=== PATIENT | female | born 1935 | race Caucasian/White ===

== ENCOUNTER 2018-01-10 00:56 | Inpatient (IN) | payer MEDICARE ==
[~2018-01-10] VITALS: Ht 167.6 cm; Wt 73.6 kg
[2018-01-10] VITALS (9 sets, daily range): BP systolic 115–170; BP diastolic 50–73
[2018-01-10] MEDS ORDERED: ACTOS15 MG PO (01:06)
[2018-01-10] MEDS ORDERED: MUCINEX PO (01:06)
[2018-01-10] MEDS ORDERED: SYNTHROID125 MCG PO (01:06)
[2018-01-10] MEDS ORDERED: PROAIR HFA INH8.5 GM INH (01:06)
[2018-01-10] MEDS ORDERED: FENOFIBRATE160 MG PO (01:06)
[2018-01-10] MEDS ORDERED: AMLODIPINE BESY10 MG PO (01:06)
[2018-01-10] MEDS ORDERED: METOPROLOL TART50 MG PO (01:06)
[2018-01-10] MEDS ORDERED: ULORIC80 MG PO (01:06)
[2018-01-10 01:24] LABS: BASOPHILS # (AUTO) 0.1 (0.0-0.1); BASOPHILS % 0.8 % (0.0-1.0); EOSINOPHILS # (AUTO) 0.7 (0.0-0.4); EOSINOPHILS % 11.4 % (0.0-6.0); HEMATOCRIT 31.1 % (34.2-44.1); HEMOGLOBIN 10.4 g/dL (12.0-16.0); INR 1.32; LYMPHOCYTES # (AUTO) 1.1 (1.0-3.2); LYMPHOCYTES % 17.7 % (18.0-39.1); MEAN CORPUSCULAR HEMOGLOBIN 30.2 pg (28-32); MEAN CORPUSCULAR HGB CONC 33.4 g/dL (31-35); MEAN CORPUSCULAR VOLUME 90.4 fL (81-99); MONOCYTES # (AUTO) 0.5 (0.2-0.8); MONOCYTES % 8.8 % (4.4-11.3); NEUTROPHILS # (AUTO) 3.7 (2.1-6.9); NEUTROPHILS % 60.7 % (38.7-80.0); PLATELET COUNT 179 x10e3/uL (140-360); PROTHROMBIN TIME 15.4 seconds (11.9-14.5); RED BLOOD COUNT 3.44 x10e6/uL (3.6-5.1); RED CELL DISTRIBUTION WIDTH 14.4 % (11.7-14.4)
[2018-01-10 01:25] LABS: PARTIAL THROMBOPLASTIN TIME 40.9 seconds (23.8-35.5)
[2018-01-10 01:34] LABS: ALBUMIN 2.9 g/dL (3.5-5.0); ALBUMIN/GLOBULIN RATIO 0.7 (0.8-2.0); ANION GAP 14.7 mmol/L (8-16); CALCIUM 9.1 mg/dL (8.4-10.2); CREATININE, SERUM 3.27 mg/dL (0.57-1.11); POTASSIUM 4.7 mmol/L (3.5-5.1)
[2018-01-10 01:54] LABS: CREATINE KINASE MB 0.4 ng/mL (0-5.0)
--- NOTE | 2018-01-10 02:17 | Diagnostic Imaging Report ---
CHEST SINGLE (PORTABLE), 01/10/2018 12:59 AM Technique: CHEST SINGLE (PORTABLE) Comparison: None available. Clinical history: Shortness of breath Findings: See Impression Impression: 1. Moderate left pleural effusion, which may be malignant given right axillary clips. Associated atelectasis or consolidation; underlying mass not excluded. Calcified left upper lobe granuloma. 2. Cardiomediastinal silhouette partially obscured. Signed by: Dr Taylor Noyola MD on 01/10/2018 2:14 AM
[2018-01-10] MEDS ORDERED: DEXTROSE 50% SYRINGE 50 ML IV PRN (02:45)
[2018-01-10] MEDS ORDERED: ALBUTEROL/IPRATROPIUM 3 ML NEB NEB PRN (02:45)
[2018-01-10] MEDS ORDERED: SODIUM CHLORIDE FLUSH 10 ML SYR INJ PRN (02:45)
--- OUTSIDE RECORDS SUMMARY | 2018-01-10 02:48 | XMS REPORT ---
Author Author [facility] Address Unknown Phone Unavailable Care Team Providers Care E Learning Specialist Name Role Phone EDWINA GUPTA Unavailable Unavailable Problems This patient has no known problems. Allergies, Adverse Reactions, Alerts This patient has no known allergies or adverse reactions. Medications This patient has no known medications. Results Test Description Test Time Test Comments Text Results Atomic Results Result Comments CHEST SINGLE (PORTABLE) [place] [address] Patient Name: BLANQUITA BELL MR #: [id number] : 1935 Age/Sex: 82/F Req #: [id number] Adm Physician: Ordered by: EDWINA GUPTA MD Report #: [id number] Location: ER Room/Bed: ___ Procedure: [id number] DX/CHEST SINGLE (PORTABLE) Exam Date: 01/10/18 Exam Time: 0130 REPORT STATUS: Signed CHEST SINGLE (PORTABLE), 01/10/2018 12:59 AM Technique: CHEST SINGLE (PORTABLE) Comparison: None available. Clinical history: Shortness of breath Findings: See Impression Impression: 1. Moderate left pleural effusion , which may be malignant given right axillary clips. Associated atelectasis or consolidation; underlying mass not excluded. Calcified left upper lobe granuloma. 2. Cardiomediastinal silhouette partially obscured. Signed by : Dr Marnie Noyola MD on 01/10/2018 2:14 AM Dictated By: MARNIE NOYOLA MD 3 Transcribed By: CLEMENTE on 01/10/18213 COPY TO: EDWINA GUPTA MD
--- NOTE | 2018-01-10 03:38 | Diagnostic Imaging Report ---
EXAM: CT CHEST WO DATE: 01/10/2018 2:38 AM INDICATION: Evaluate for mass, history of breast cancer. Intermittent shortness of breath. No clinical concern for infection. COMPARISON: None TECHNIQUE: Multidetector CT scanning of the chest was performed. Coronal and sagittal multiplanar reformations were obtained. IV Contrast: 0 ml Isovue 370/300 FINDINGS: LUNGS AND PLEURA: Moderate left pleural effusion with associated atelectasis. Suboptimal assessment for underlying mass given the presence of a moderate effusion, atelectasis and lack of IV contrast. Mild mosaic attenuation which can be seen with small airways disease. Calcified left upper lobe granuloma. Mild nonspecific groundglass in the left upper lobe. HEART, MEDIASTINUM, VESSELS: Mild cardiomegaly with coronary artery and aortic calcifications. No pericardial effusion. There are scattered small mediastinal nodes, largest 9 mm pretracheal node. Right axillary clips. UPPER ABDOMEN: Cholecystectomy. Lobular renal contours with left renal cyst (suboptimal assessment for lesions without IV contrast). MUSCULOSKELETAL: Multilevel degenerative changes resulting in canal stenosis at the upper lumbar spine. IMPRESSION: Moderate left pleural effusion, which could be malignant given history of breast cancer. Difficult to evaluate for underlying mass given the moderate effusion, associated atelectasis and lack of IV contrast. Signed by: Dr Taylor Noyola MD on 01/10/2018 3:35 AM
[2018-01-10] MEDS: LEVOTHYROXINE SODIUM 125 MCG TAB PO SCH (06:16)
[2018-01-10] MEDS ORDERED: ASPIRIN 81 MG CHEW TAB PO ONE (07:00)
[2018-01-10] MEDS: MORPHINE SULFATE 2 MG/ML SYR IV PRN ×2 (07:15→23:02)
[2018-01-10] MEDS: INSULIN REGULAR, HUMAN 100 UNIT/1 ML 3ML VIAL SQ SCH ×4 (07:30→19:34)
[2018-01-10 08:05] LABS: CREATINE KINASE MB 0.6 ng/mL (0-5.0)
[2018-01-10] MEDS: METOPROLOL TARTRATE 50 MG TAB PO SCH ×2 (08:59→17:34)
[2018-01-10] MEDS: AMLODIPINE BESYLATE 10 MG TAB PO SCH (09:00)
[2018-01-10] MEDS: FENOFIBRATE 145 MG TAB PO SCH (09:00)
[2018-01-10] MEDS: GUAIFENESIN 600 MG TAB PO SCH ×2 (09:00→17:34)
[2018-01-10] MEDS: FEBUXOSTAT 80 MG TAB PO SCH (09:00)
[2018-01-10] MEDS: FUROSEMIDE INJ 10 MG/ML 4 ML VIAL IV SCH (10:17)
[2018-01-10 10:26] LABS: BILIRUBIN,URINE NEGATIVE (NEGATIVE); CLARITY,URINE CLEAR (CLEAR); COLOR,URINE YELLOW (YELLOW); KETONES,URINE NEGATIVE (NEGATIVE); LEUKOCYTE ESTERASE ,URINE NEGATIVE (NEGATIVE); NITRITE,URINE NEGATIVE (NEGATIVE); PROTEIN,URINE DIPSTICK 1+ (NEGATIVE); URINE UROBILINOGEN 0.2 mg/dL (0.2 - 1)
[2018-01-10 10:35] LABS: SODIUM,URINE 59 mmol/L
[2018-01-10 10:38] LABS: EPITHELIAL CELLS,URINE RARE /LPF; WBC,URINE (MAN) 0-5 /HPF (0-5)
[2018-01-10 10:39] LABS: RENAL EPITHELIAL CELLS,URINE RARE
--- NOTE | 2018-01-10 10:57 | Consultation ---
DATE OF CONSULTATION: January 10, 2018 RENAL CONSULTATION Thank you for this consultation. Ms. Cohen is a pleasant 82-year-old female with a past medical history significant for history of diabetes mellitus, type 2, history of hypertension, history of congestive heart failure, history of chronic kidney disease with previous creatinine apparently consistent with an estimated GFR around 30 mL per minute. Also, has a prior history of breast cancer, bilateral hip surgery, who is a resident of [place] and was visiting her daughter, and apparently is going to be here on a long-term basis. The patient apparently was in [place] about a week or so ago, and had a left-sided pleural effusion drained, and started to have recurrence of shortness of breath, increased lower extremity edema. The daughter brought her over to the emergency room at [facility]. The patient was readmitted to the hospital there with what appears to be congestive heart failure exacerbation, and also jpzwt-yz-qzkttwa kidney disease. The patient's creatinine on presentation was found to be 3.3. Apparently, the baseline that she has is lower than that. The patient also was found to have evidence of moderate sided left pleural effusion, possibly malignant given right axillary clips. There is also left-sided upper lobe granuloma. The patient also had a CT of the chest done without contrast that showed moderate left pleural effusion, possibly malignant given history of breast cancer. Renal consultation has been asked in the management of her yijxw-xx-xofciuu kidney disease. The patient is currently seen in her room. She does not have overt respiratory distress. Is on home oxygen about 2 L nasal cannula. She is on about the same at this time. No fever. No chills. No nausea. No vomiting. No diarrhea. Does have some shortness of breath. Does have some pain when she takes a breath in particular on the left side. PAST MEDICAL HISTORY: As outlined above. ALLERGIES: IODINE. SOCIAL HISTORY: No tobacco. No alcohol use. FAMILY HISTORY: Noncontributory. REVIEW OF SYSTEMS: See HPI. Otherwise, all systems negative. MEDICATIONS: Have been reviewed per chart. The patient currently is on fenofibrate, amlodipine, metoprolol, insulin, Uloric, TriCor. PHYSICAL EXAMINATION VITAL SIGNS: As follows: Blood pressure is 170/70, pulse ox 94 on 2 L nasal cannula, pulse 73, respirations 19, and afebrile. HEENT: No cervical lymphadenopathy. NECK: Supple without masses. No elevated JVD. Oral mucosa appears to be moist with good turgor. CHEST: Good expansion. No chest wall tenderness. Lungs with rales at bases, right lung field. Left lung field with diminished breath sounds. CARDIOVASCULAR: S1 and S2. No obvious gallop, rub or murmur. ABDOMEN: Soft. Positive bowel sounds. Nontender. No organomegaly. EXTREMITIES: Evidence of 1+ edema of the lower extremities. No clubbing. No cyanosis. NEUROLOGIC: Awake, alert and oriented times 3. Grossly otherwise nonfocal exam. LABS: As follows: Sodium 138, potassium 4.7, chloride 103, carb 25, BUN 71, creatinine 3.3, glucose 108. Calcium 9.1, albumin 2.9. BNP was 460. CT of chest and chest x-ray both confirmed moderate left pleural effusion. Possibility of malignancy related given the history of breast cancer. IMPRESSION AND PLAN 1. Acute kidney injury on chronic kidney disease, stage 4: The patient certainly has chronic kidney disease from history of diabetes mellitus and hypertension. Acute kidney injury could certainly be secondary to acute onset of congestive heart failure exacerbation leading to decreased renal perfusion. For now, I would put the patient on gentle intravenous diuresis with Lasix 40 mg intravenously daily to see whether or not there is improvement in the pleural effusion. Will also check labs in the morning, including basic metabolic panel, mag, phos, and CBC. Will get urine electrolytes, urine protein to creatinine ratio to evaluate as part of workup for chronic kidney disease. Will also get a renal ultrasound and evaluate for chronicity and an intact PTH level as well. For now, no acute indication for dialysis. Will continue to monitor closely and make further recommendations. Avoid potential nephrotoxic agents. Avoid LUIS ENRIQUE inhibitors, ARBs, nonsteroidal anti-inflammatory drugs, and intravenous dye at this time. 2. Hypertension: Continue current medications. If the blood pressure continues to be elevated, will adjust medications and add additional medications as needed. 3. Edema/possible congestive heart failure exacerbation: Will place on Lasix 40 mg intravenously daily and make further recommendations. 4. Proteinuria: Will get a urine protein to creatinine ratio. If it is elevated, will consider doing a 24-hour urine for protein to see whether or not the patient has nephrotic range proteinuria. Thank you once again for the consultation, Dr. Hughes. Will follow the patient closely along with you and make further recommendations. Will also have her see us in our office when she is discharged from here. Thank you once again for the consultation. Job#: [id number] RI cc:COURTNEY HUGHES M.D.
--- NOTE | 2018-01-10 11:21 | Diagnostic Imaging Report ---
PROCEDURE:US RETROPERITONEAL ( KIDNEY ). COMPARISON:None. INDICATIONS:EVALUATE SIZE, HYDRONEPHROSIS TECHNIQUE: [place]-scale and color sonographic images of the bilateral kidneys and bladder where obtained in transverse and longitudinal planes. FINDINGS: RIGHT KIDNEY: 9.5 x 3.8 x 4.1 cm, cortex 0.9 cm Cysts: None Solid masses: None Stones: None Hydronephrosis: Right extrarenal pelvis is unchanged. Echogenicity: Normal LEFT KIDNEY: 9.2 x 4.6 x 4.7 cm, cortex 1.0 cm Cysts: 1.9 x 1.5 x 1.6 cm cyst in the inferior pole. Solid masses: None Stones: None Hydronephrosis: None Echogenicity: Normal Bladder: Normal. Incidental finding of left pleural effusion and mild splenomegaly. CONCLUSION: Mildly thinned renal cortex, which is within normal limits for age. 1.9 cm simple left renal cyst. Otherwise normal kidneys. Dictated by: Hector Sanchez M.D. on 01/10/2018 at 11:22 Electronically approved by: Hector Sanchez M.D. on 01/10/2018 at 11:22
--- NOTE | 2018-01-10 12:11 | History and Physical ---
Ms. Cohen is an 82-year-old lady with a past medical history of diabetes type 2, hypertension, congestive heart failure, chronic kidney disease, breast cancer history treated in 2005, and bilateral hip surgery. She presented with dyspnea and left-sided pleural effusion. The patient lives in [place] where her daughter says a week ago she was admitted for dyspnea and left-sided pleural effusion and lower extremity edema. She had drainage of pleural fluid there. She was recovering when she again developed dyspnea and lower extremity edema and was brought to the emergency room here at [facility] [place] yesterday. On admission, her creatinine was elevated, and her chest x-ray and CT chest showed left-sided pleural effusion. Therefore, she was admitted with renal insufficiency, dyspnea and pleural effusion. PAST MEDICAL HISTORY: Positive for diabetes, hypertension, congestive heart failure, chronic kidney disease, hypothyroidism, hyperlipidemia. PAST SURGICAL HISTORY: Positive for bilateral hip surgeries and replacement, history of breast cancer treated in 2005, and history of skin cancer treated 2 years ago. ALLERGIES: SHE HAS NO MEDICATION ALLERGY, BUT SHE DOES HAVE ALLERGY TO IODINE. FAMILY HISTORY: Positive for diabetes and hypertension. Her mother had cervical cancer. SOCIAL HISTORY: She lives alone. She is independent with all her ADLs and also drives. She lives in [place] but has recently moved here with her daughter due to her illness. She denied any history of smoking or alcohol use. PHYSICAL EXAMINATION VITALS: Temperature was 96, pulse 73, respiratory rate 19, blood pressure 170/73. She was saturating 94% with nasal cannula. HEENT: Oral mucosa was moist. NECK: Supple. CHEST: Decreased air entry on the bases. No wheezing or rhonchi. She had regular heart sounds with no murmurs. ABDOMEN: Soft and nontender. EXTREMITIES: She has +1 edema of bilateral lower extremities. NEUROLOGIC: She has no weakness, and she was moving all of her extremities. SKIN: No changes in her skin. REVIEW OF SYSTEMS: She said that she does have a history of off and on cough for which she uses nebulizers and inhalers as needed. She does have a history of chronic headaches, which she says she mostly wakes up with a headache, and they go away after taking Tylenol. She also says she does have recurrent pain in her joints for which she is treated for gout. LABS: Anemia--hypochromic, microcytic anemia. PT and INR were normal. Her renal function revealed elevated creatinine, low GFR and elevated BUN. Cardiac enzymes were done as she presented early today with chest pain. Her cardiac enzymes were done, and they were not elevated. Her BNP is elevated at 460.4. She has low albumin and high globulin. ASSESSMENT AND PLAN 1. Dyspnea for which she is receiving DuoNeb. Pulmonary is on consult for her pleural effusion and dyspnea. 2. Renal insufficiency. She is being seen by nephrology, and she is on IV fluids. 3. Congestive heart failure. She is receiving Lasix and metoprolol 4. Hypertension for which she is on Norvasc. 5. Gout for which she is on Uloric. 6. Hypothyroidism for which she is on levothyroxine. 7. Chest pain and heart failure for which she is going to be seen by cardiology. The plan is to follow cholesterol and A1c. Start DVT prophylaxis and follow and continue the above management. Job#: [id number]
[2018-01-10] MEDS: ONDANSETRON HCL 4 MG ORAL DISINTEGRATING TAB PO PRN ×3 (12:39→23:02)
[2018-01-10] MEDS: PANTOPRAZOLE 40 MG 10ML VIAL IV SCH (13:12)
--- NOTE | 2018-01-10 14:40 | Diagnostic Imaging Report ---
PROCEDURE: A single AP view of the chest. COMPARISON: Chest x-ray 01/10/2018 at 1:36 AM. INDICATIONS: POST THORACENTESIS. SHORTNESS OF BREATH. COUGH FINDINGS: Lines/tubes: None. Lungs: Improvement in right basilar atelectasis/aspiration. Improvement in left basilar atelectasis. Bilateral lower lobe bronchiectasis is unchanged. Pleura: No pneumothorax. Significant improvement in left pleural effusion, now tiny. Heart and mediastinum: The heart and the mediastinum are unremarkable. Atherosclerotic calcifications in the aorta. Bones: No acute bony abnormality. Rectal quadrant cholecystectomy clips. IMPRESSION: 1. Near resolution of left pleural effusion. No pneumothorax. 2. Nearly resolved left lower lobe atelectasis. Dictated by: Hector Sanchez M.D. on 01/10/2018 at 14:42 Electronically approved by: Hector Sanchez M.D. on 01/10/2018 at 14:42
--- NOTE | 2018-01-10 14:45 | Diagnostic Imaging Report ---
PROCEDURE: ULTRASOUND GUIDED THORACENTESIS COMPARISON: [facility], CT, CT CHEST WO, 01/10/2018, 2:55. INDICATIONS:LT THORACENTESIS FINDINGS: After informed consent was obtained, the patient was placed in the sitting position and preliminary ultrasound of the posterior chest identified a safe route into the left pleural effusion. The overlying skin was prepped and draped in usual sterile fashion. Lidocaine 1% was used for local anesthesia. Under ultrasound guidance, 5 [place] [address] Trolley centesis needle was advanced into the pleural fluid and 1100 cc were aspirated. The patient tolerated the procedure well and there were no immediate post-procedural complications. A post-thoracentesis chest radiograph will be obtained. CONCLUSION: Uncomplicated ultrasound-guided left thoracentesis with removal of left 1100 cc and sent to the lab for analysis. Pedro Alcantara D.O. Dictated by: Pedro Alcantara D.O. on 01/10/2018 at 14:46 Electronically approved by: Pedro Alcantara D.O. on 01/10/2018 at 14:46
[2018-01-10 15:30] LABS: BODY FLUID APPEARANCE SL.CLOUDY; BODY FLUID COLOR YELLOW; BODY FLUID TYPE PLEURAL
[2018-01-10 15:31] LABS: RBC,BODY FLUID 713 cells/uL; WBC,BODY FLUID 184 cells/uL
[2018-01-10 15:49] LABS: CREATINE KINASE MB 0.7 ng/mL (0-5.0)
[2018-01-10 16:05] LABS: EOSINOPHILS,BODY FLUID 10 %; LYMPHOCYTES,BODY FLUID 68 %; MONO/MACROPHG,BODY FLUID 11 %; NEUTROPHILS,BODY FLUID 11 %
--- NOTE | 2018-01-10 16:45 | Consultation ---
DATE OF CONSULTATION: January 10, 2018 This is a patient of Dr. James. This is a charming, but unfortunate, 82-year-old woman with a history of recent thoracentesis in [place]. One liter was drained from the left chest. According to the family, no studies were requested. The patient has a history of remote stage 0 breast cancer treated with lumpectomy and radiation in 2005 and lymph node biopsy. Skin cancer in 2016 on the ear. They were told it was all removed. She has a history of diabetes. HISTORY OF IODINE ALLERGY. Her medications have included albuterol, Actos, amlodipine, Uloric, fenofibrate, Levoxyl, metoprolol and Mucinex. Family history is positive for cancer of the uterus, breast and throat. She has had 3 hip replacement surgeries, 2 on the right, as well as her lumpectomy. 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 PHYSICAL EXAMINATION VITALS: Temperature 97.3, pulse 64, respirations 18, blood pressure 165/75. HEAD: Normocephalic and atraumatic. EYES: The extraocular movements are intact. LUNGS: Rub at left base. Status post thoracentesis. HEART: Regular rhythm. ABDOMEN: Nontender. EXTREMITIES: Not edematous. IMPRESSION: Congestive heart failure and renal failure. Pleural fluid preliminary results are suggestive of a pseudoexudate. LDH 103 and protein 3.5. This is a borderline study. Will request additional tests. Echocardiogram was also performed, and results are pending at this time. Chest x-ray appears to have re-expanded after the procedure. No obvious mass. Thank you for this kind referral. Job#: [id number]
--- NOTE | 2018-01-10 17:30 | Consultation ---
DATE OF CONSULTATION: January 10, 2018 CARDIOLOGY CONSULTATION ATTENDING PHYSICIAN: Dr. Hughes. Thank you so much for asking me to see this nice lady in consultation. Ms. Cohen is a pleasant 82-year-old woman who has been living alone in [place], [place], who was brought by her family to the emergency room with a complaint of chest discomfort and shortness of breath. HISTORY OF PRESENT ILLNESS: The patient and her daughter tell me that she had a thoracentesis in [place], [place], on January 01 where they believe that they removed about a liter of fluid and perhaps was not sent for studies. She has been having considerable ankle swelling but of undetermined etiology. PAST MEDICAL HISTORY: Significant for a right-sided breast surgery for cancer followed by radiation treatments in 2005. She did not have any chemotherapy. She has had remote cholecystectomy. She has had longstanding severe hypertension. She had bilateral hip replacements. Her home medications have included metoprolol, amlodipine, furosemide. She reports that she was told to stop using metformin recently and has used a different diabetes pill, which she cannot name. She has levothyroxine for hypothyroidism. She has been seeing a kidney doctor for renal insufficiency and tells me that, "Most kidneys are about 60. They say mine is about 30." PERSONAL AND SOCIAL HISTORY: She does not smoke nor drink and has been living alone. REVIEW OF SYSTEMS: IN GENERAL: The patient is very proud that she has lost 50 pounds over the past year and insists that it was intentional. CARDIAC: She reports that her ankles have been swelling on a daily basis. Denies any chest pain. She denies any knowledge of any cardiac problem to me. PHYSICAL EXAMINATION: GENERAL: At this time shows a pleasant, obese white woman who is alert and responsive. VITAL SIGNS: Blood pressure 170/70. HEENT: Unremarkable. NECK: There is no jugular venous distention visible, but there are either carotid bruits or radiated murmur. THORAX: Heart sounds S1 and S2 are reduced. There is a 1/6 systolic murmur. Lungs are relatively clear now after a thoracentesis today. ABDOMEN: Protuberant. Normal bowel sounds. EXTREMITIES: Have trace pretibial edema. EKG shows sinus rhythm with 1st degree AV block and suggests anterior scar. Chest x-ray and CT of the chest showed pleural effusion and right mastectomy. LABORATORY DATA: Pertinent laboratory studies on the chart show a BUN 71 and creatinine 3.27. Hemoglobin 10.4, white count 6.1. ASSESSMENT: 1. Pleural effusion. Etiology not clear but recurrent by history. 2. Peripheral edema. May be related to congestive heart failure or renal insufficiency or both. 3. Renal insufficiency. 4. Echocardiogram suggests mild aortic stenosis and ejection fraction of 50% to 55%, but full study is not yet available for me to review. PLAN: Will check echocardiogram and follow volume status and wait for results of the thoracentesis fluid. Thank you for asking me to see her consultation. Job#: [id number] EV cc:Mandy GARZA MD
[2018-01-11 04:27] VITALS: BP 133/62
[2018-01-11 06:13] LABS: BASOPHILS # (AUTO) 0.1 (0.0-0.1); BASOPHILS % 0.7 % (0.0-1.0); EOSINOPHILS # (AUTO) 0.8 (0.0-0.4); EOSINOPHILS % 10.8 % (0.0-6.0); HEMATOCRIT 29.7 % (34.2-44.1); HEMOGLOBIN 9.6 g/dL (12.0-16.0); LYMPHOCYTES # (AUTO) 0.8 (1.0-3.2); LYMPHOCYTES % 10.8 % (18.0-39.1); MEAN CORPUSCULAR HEMOGLOBIN 30.2 pg (28-32); MEAN CORPUSCULAR HGB CONC 32.3 g/dL (31-35); MEAN CORPUSCULAR VOLUME 93.4 fL (81-99); MONOCYTES # (AUTO) 0.6 (0.2-0.8); MONOCYTES % 7.7 % (4.4-11.3); NEUTROPHILS # (AUTO) 5.4 (2.1-6.9); NEUTROPHILS % 69.5 % (38.7-80.0); PLATELET COUNT 158 x10e3/uL (140-360); RED BLOOD COUNT 3.18 x10e6/uL (3.6-5.1); RED CELL DISTRIBUTION WIDTH 14.5 % (11.7-14.4)
[2018-01-11 06:36] LABS: CHOL/HDL RATIO 6.4 (3.0-3.6)
[2018-01-11 06:49] LABS: ALBUMIN 2.3 g/dL (3.5-5.0); ALBUMIN/GLOBULIN RATIO 0.7 (0.8-2.0); ANION GAP 11.5 mmol/L (8-16); CALCIUM 8.7 mg/dL (8.4-10.2); CREATININE, SERUM 2.7 mg/dL (0.57-1.11); POTASSIUM 4.5 mmol/L (3.5-5.1)
[2018-01-11 06:51] LABS: CREATINE KINASE MB 0.4 ng/mL (0-5.0)
[2018-01-11] MEDS: LEVOTHYROXINE SODIUM 125 MCG TAB PO SCH (07:17)
[2018-01-11] MEDS: INSULIN REGULAR, HUMAN 100 UNIT/1 ML 3ML VIAL SQ SCH ×4 (07:30→21:00)
[2018-01-11] MEDS: ONDANSETRON HCL 4 MG ORAL DISINTEGRATING TAB PO PRN (07:35)
[2018-01-11 08:00] VITALS: BP_SYST 126; BP_SYST 133; BP_DIAS 59; BP_DIAS 60
[2018-01-11 08:13] LABS: MAGNESIUM 1.7 MG/DL (1.3-2.1); PHOSPHORUS 4.2 MG/DL (2.3-4.7)
[2018-01-11] MEDS: MORPHINE SULFATE 2 MG/ML SYR IV PRN ×2 (08:20→21:52)
[2018-01-11] MEDS: FUROSEMIDE INJ 10 MG/ML 4 ML VIAL IV SCH (09:09)
[2018-01-11] MEDS: PANTOPRAZOLE 40 MG 10ML VIAL IV SCH (09:09)
[2018-01-11] MEDS: FEBUXOSTAT 80 MG TAB PO SCH (09:10)
[2018-01-11] MEDS: METOPROLOL TARTRATE 50 MG TAB PO SCH ×2 (09:10→16:22)
[2018-01-11] MEDS: GUAIFENESIN 600 MG TAB PO SCH ×2 (09:10→16:22)
[2018-01-11] MEDS: FENOFIBRATE 145 MG TAB PO SCH (09:10)
[2018-01-11] MEDS: AMLODIPINE BESYLATE 10 MG TAB PO SCH (09:10)
--- NOTE | 2018-01-11 09:38 | Progress Note ---
DATE: January 11, 2018 RENAL PROGRESS NOTE SUBJECTIVE: Followed for acute kidney injury on chronic kidney disease, stage 4. Kidney function is better today. Creatinine is down to 2.7. The patient did diurese well with Lasix 40 mg once a day. She is breathing better. Her lower extremity swelling is improved also. No nausea. No vomiting. No shortness of breath at this time. Breathing has improved. OBJECTIVE VITAL SIGNS: Have been noted. Blood pressure is 133/62, respirations 19, and afebrile. LUNGS: Mostly clear to auscultation bilaterally. CARDIOVASCULAR: S1 and S2. No rub. ABDOMEN: Soft and nontender. EXTREMITIES: No edema. LABS: Sodium 140, potassium 4.5, BUN 70, creatinine 2.7, glucose 111. IMPRESSION AND PLAN 1. Acute kidney injury on chronic kidney disease, stage 4: Kidney function continues to improve with improved diuresis and improved congestive heart failure exacerbation leading to improved circulating volume. Therefore, better renal perfusion. Will change Lasix to oral since the patient's lower extremity has improved significantly. Overall, the patient does appear now to be on the euvolemic side. 2. Hypertension: Blood pressure stable. Continue to monitor. 3. Edema/congestive heart failure exacerbation: Appears to have improved. Will discontinue intravenous Lasix after today and then start oral Lasix tomorrow 40 mg daily. Job#: [id number] KORI
[2018-01-11 16:00] VITALS: BP 131/58
[2018-01-11 20:00] VITALS: BP 137/64
[2018-01-12 00:03] VITALS: BP 126/58
[2018-01-12 04:00] VITALS: BP 146/65
[2018-01-12 05:44] LABS: BASOPHILS # (AUTO) 0.1 (0.0-0.1); BASOPHILS % 0.7 % (0.0-1.0); EOSINOPHILS # (AUTO) 0.9 (0.0-0.4); EOSINOPHILS % 12.4 % (0.0-6.0); HEMATOCRIT 31.9 % (34.2-44.1); HEMOGLOBIN 10.3 g/dL (12.0-16.0); LYMPHOCYTES # (AUTO) 1.1 (1.0-3.2); LYMPHOCYTES % 15.2 % (18.0-39.1); MEAN CORPUSCULAR HEMOGLOBIN 29.9 pg (28-32); MEAN CORPUSCULAR HGB CONC 32.3 g/dL (31-35); MEAN CORPUSCULAR VOLUME 92.5 fL (81-99); MONOCYTES # (AUTO) 0.7 (0.2-0.8); MONOCYTES % 9.5 % (4.4-11.3); NEUTROPHILS # (AUTO) 4.5 (2.1-6.9); NEUTROPHILS % 61.9 % (38.7-80.0); PLATELET COUNT 162 x10e3/uL (140-360); RED BLOOD COUNT 3.45 x10e6/uL (3.6-5.1); RED CELL DISTRIBUTION WIDTH 14.5 % (11.7-14.4)
[2018-01-12 06:03] LABS: ANION GAP 12.3 mmol/L (8-16); CALCIUM 8.8 mg/dL (8.4-10.2); CREATININE, SERUM 2.59 mg/dL (0.57-1.11); POTASSIUM 4.3 mmol/L (3.5-5.1)
[2018-01-12] MEDS: LEVOTHYROXINE SODIUM 125 MCG TAB PO SCH (07:09)
[2018-01-12] MEDS: INSULIN REGULAR, HUMAN 100 UNIT/1 ML 3ML VIAL SQ SCH ×4 (07:30→21:00)
[2018-01-12 08:00] VITALS: BP 165/65
[2018-01-12] MEDS: PANTOPRAZOLE SOD 40 MG TABEC PO SCH (08:00)
[2018-01-12] MEDS: METOPROLOL TARTRATE 50 MG TAB PO SCH ×2 (08:36→16:17)
[2018-01-12] MEDS: FUROSEMIDE 40 MG TAB PO SCH (08:36)
[2018-01-12] MEDS: GUAIFENESIN 600 MG TAB PO SCH ×2 (08:36→16:17)
[2018-01-12] MEDS: FENOFIBRATE 145 MG TAB PO SCH (08:36)
[2018-01-12] MEDS: AMLODIPINE BESYLATE 10 MG TAB PO SCH (08:36)
[2018-01-12] MEDS: FEBUXOSTAT 80 MG TAB PO SCH (08:37)
[2018-01-12 12:00] VITALS: BP 134/59
--- NOTE | 2018-01-12 13:58 | Progress Note ---
DATE: January 12, 2018 RENAL PROGRESS NOTE SUBJECTIVE: Followed for acute kidney injury on chronic kidney disease, stage 4. The patient's kidney function has stabilized around a creatinine of 2.6. The patient has diuresed well. Pleural effusion has improved after thoracentesis and with IV diuresis. No nausea. No vomiting. Breathing is improved also. OBJECTIVE VITAL SIGNS: Have been noted. Blood pressure is 160/60, heart rate 71. LUNGS: Mostly clear to auscultation bilaterally. CARDIOVASCULAR: S1 and S2. No rub. ABDOMEN: Soft and nontender. EXTREMITIES: No edema. LABS: Sodium 137, potassium 4.3, BUN 71, creatinine 2.6. IMPRESSION AND PLAN 1. Acute kidney injury on chronic kidney disease, stage 4: The patient is approaching her baseline creatinine. I have discontinued the intravenous Lasix and changed her to oral Lasix from today. 2. Hypertension: Blood pressure is stable. 3. Anemia: Currently stable. 4. Congestive heart failure exacerbation, resolved: Change Lasix to oral now. Job#: [id number] [place]
[2018-01-12 16:00] VITALS: BP 132/61
[2018-01-12] MEDS: MORPHINE SULFATE 2 MG/ML SYR IV PRN (18:33)
[2018-01-12 20:00] VITALS: BP 129/61
[2018-01-13] VITALS (7 sets, daily range): BP systolic 120–185; BP diastolic 52–72
[2018-01-13] MEDS: LEVOTHYROXINE SODIUM 125 MCG TAB PO SCH (05:38)
[2018-01-13] MEDS: INSULIN REGULAR, HUMAN 100 UNIT/1 ML 3ML VIAL SQ SCH ×4 (07:30→20:57)
--- NOTE | 2018-01-13 07:34 | Diagnostic Imaging Report ---
EXAMINATION: CHEST 2 VIEWS INDICATION: Pleural effusion. COMPARISON: Chest x-ray 01/10/2018. CT chest 01/10/2018. FINDINGS: PA and lateral views TUBES and LINES: None. LUNGS: Right lung is well inflated. Increase in left basilar atelectasis. Slight increase in right basilar atelectasis. Minimal increase in central pulmonary venous congestion. PLEURA: Unchanged small left pleural effusion. HEART AND MEDIASTINUM: The cardiomediastinal silhouette is unremarkable. There are atherosclerotic calcifications within the aorta. BONES AND SOFT TISSUES: No acute osseous lesion. Right axillary surgical clips. UPPER ABDOMEN: No free air under the diaphragm. IMPRESSION: No significant change in small left pleural effusion. However, interval development of moderate atelectasis in the left lung base. Mild right basilar atelectasis. Signed by: Dr. Hector Sanchez M.D. on 01/13/2018 7:31 AM
[2018-01-13] MEDS: PANTOPRAZOLE SOD 40 MG TABEC PO SCH (08:00)
[2018-01-13] MEDS: GUAIFENESIN 600 MG TAB PO SCH ×2 (08:37→17:25)
[2018-01-13] MEDS: FUROSEMIDE 40 MG TAB PO SCH (08:37)
[2018-01-13] MEDS: METOPROLOL TARTRATE 50 MG TAB PO SCH ×2 (08:37→17:25)
[2018-01-13] MEDS: FEBUXOSTAT 80 MG TAB PO SCH (08:38)
[2018-01-13] MEDS: AMLODIPINE BESYLATE 10 MG TAB PO SCH (08:38)
[2018-01-13] MEDS: FENOFIBRATE 145 MG TAB PO SCH (08:38)
[2018-01-14] VITALS (7 sets, daily range): BP systolic 137–160; BP diastolic 63–72
[2018-01-14 06:28] LABS: ANION GAP 10.3 mmol/L (8-16); CALCIUM 8.6 mg/dL (8.4-10.2); CREATININE, SERUM 2.22 mg/dL (0.57-1.11); MAGNESIUM 1.8 MG/DL (1.3-2.1); POTASSIUM 4.3 mmol/L (3.5-5.1)
[2018-01-14] MEDS: LEVOTHYROXINE SODIUM 125 MCG TAB PO SCH (06:40)
[2018-01-14] MEDS: INSULIN REGULAR, HUMAN 100 UNIT/1 ML 3ML VIAL SQ SCH ×4 (07:30→20:03)
[2018-01-14] MEDS: PANTOPRAZOLE SOD 40 MG TABEC PO SCH (07:30)
[2018-01-14] MEDS: AMLODIPINE BESYLATE 10 MG TAB PO SCH (08:49)
[2018-01-14] MEDS: FEBUXOSTAT 80 MG TAB PO SCH (08:49)
[2018-01-14] MEDS: GUAIFENESIN 600 MG TAB PO SCH ×2 (08:49→17:16)
[2018-01-14] MEDS: FUROSEMIDE 40 MG TAB PO SCH (08:49)
[2018-01-14] MEDS: METOPROLOL TARTRATE 50 MG TAB PO SCH (08:49)
[2018-01-14] MEDS: FENOFIBRATE 145 MG TAB PO SCH (08:49)
[2018-01-14] MEDS: ACETAMINOPHEN 325 MG TAB PO PRN (09:00)
[2018-01-14] MEDS ORDERED: FUROSEMIDE 40 MG TAB PO SCH (09:00)
--- NOTE | 2018-01-14 09:31 | Progress Note ---
DATE: January 14, 2018 RENAL PROGRESS NOTE SUBJECTIVE: Followed for acute kidney injury on chronic kidney disease, stage 3 to stage 4. Creatinine continues to improve. It is down to 2.2. BUN has gone up to 83. The patient may be slightly under on the volume depleted side. Chest x-ray shows very small left pleural effusion now, otherwise clear. No nausea. No vomiting. Breathing is improved. OBJECTIVE VITAL SIGNS: Have been noted and are stable. LUNGS: Clear to auscultation bilaterally. CARDIOVASCULAR: S1 and S2. No rub. ABDOMEN: Soft and nontender. EXTREMITIES: No edema. LABS: Sodium 135, potassium 4.2, chloride 99, carb 30, BUN 83, creatinine 2.2, glucose 110. IMPRESSION AND PLAN 1. Acute kidney injury on chronic kidney disease, stage 3 to stage 4: Likely at baseline. Has chronic kidney disease, stage 4, although creatinine continues to improve and may be stabilizing at a stage 3 baseline. There is elevation of her BUN today, which may be azotemia from side volume depletion. Will decrease the Lasix dose to 20 mg daily and make further recommendations. 2. Hypertension, stable: Continue to monitor. 3. History of congestive heart failure: Will continue on low-dose Lasix. Decrease it to 20 mg once a day to avoid volume depletion. Job#: [id number] KORI
--- NOTE | 2018-01-14 11:23 | Diagnostic Imaging Report ---
PROCEDURE:US CHEST (INCL MEDIASTINUM) COMPARISON:Chest radiograph 01/13/2018. INDICATIONS:pleural effusion FINDINGS:See conclusion CONCLUSION: Small left pleural effusion. No right pleural effusion. Dictated by: Alex Arora M.D. on 01/14/2018 at 11:25 Electronically approved by: Alex Arora M.D. on 01/14/2018 at 11:25
[2018-01-14] MEDS: METOPROLOL TARTRATE 25 MG TAB PO SCH (17:00)
[2018-01-14] MEDS ORDERED: METOPROLOL TARTRATE 50 MG TAB PO SCH (17:00)
[2018-01-15] VITALS: BP 166/79
[2018-01-15] MEDS: ACETAMINOPHEN 325 MG TAB PO PRN (02:44)
[2018-01-15 04:00] VITALS: BP 167/73
[2018-01-15] MEDS: LEVOTHYROXINE SODIUM 125 MCG TAB PO SCH (05:25)
[2018-01-15] MEDS: METOPROLOL TARTRATE 25 MG TAB PO SCH (05:25)
[2018-01-15 06:25] LABS: ANION GAP 14.6 mmol/L (8-16); CREATININE, SERUM 2.27 mg/dL (0.57-1.11); POTASSIUM 4.6 mmol/L (3.5-5.1)
[2018-01-15 07:17] VITALS: BP 155/69
[2018-01-15] MEDS: INSULIN REGULAR, HUMAN 100 UNIT/1 ML 3ML VIAL SQ SCH ×2 (07:30→12:20)
[2018-01-15] MEDS: PANTOPRAZOLE SOD 40 MG TABEC PO SCH (08:00)
[2018-01-15] MEDS: FENOFIBRATE 145 MG TAB PO SCH (08:14)
[2018-01-15] MEDS: FEBUXOSTAT 80 MG TAB PO SCH (08:14)
[2018-01-15] MEDS: AMLODIPINE BESYLATE 10 MG TAB PO SCH (08:14)
[2018-01-15] MEDS: GUAIFENESIN 600 MG TAB PO SCH (08:14)
[2018-01-15 08:42] VITALS: BP 155/69
[2018-01-15] MEDS ORDERED: FUROSEMIDE 20 MG TAB PO SCH (09:00)
--- NOTE | 2018-01-15 09:08 | Progress Note ---
DATE: January 15, 2018 RENAL PROGRESS NOTE SUBJECTIVE: Followed for acute kidney injury on chronic kidney disease, stage 4. Stable kidney function. Creatinine stabilized around 2.2 to 2.3. BUN is better today after hydration. I have also decreased the Lasix to 20 mg once a day. No nausea. No vomiting. No shortness of breath. OBJECTIVE VITAL SIGNS: Have been noted. Blood pressure is 155/69, pulse 58, respirations 16. LUNGS: Clear to auscultation bilaterally mostly. CARDIOVASCULAR: S1 and S2. No rub. ABDOMEN: Soft and nontender. EXTREMITIES: No edema. LABS: Potassium 4.6, BUN 85, creatinine 2.3. Calcium 9. IMPRESSION AND PLAN 1. Acute kidney injury on chronic kidney disease, stage 4: Stabilized now at chronic kidney disease, stage 4. I have decreased the Lasix to avoid volume depletion. Will keep it at 20 mg once a day for now. 2. Hypertension: Blood pressure is stable. 3. Anemia of chronic disease, stable. 4. History of congestive heart failure: Continue low-dose furosemide 20 mg once a day. Job#: [id number] KORI
[2018-01-15] MEDS ORDERED: LASIX20 MG PO (12:37)
== END 2018-01-15 15:14 | disposition home or self-care (01) | DRG 187 ==
LOC: ER 00:56 → ERHOLD 02:45 → MED/SURG2 03:08
PROVIDERS: ADMIT Internal Medicine; ATTEND Internal Medicine
PROC: 0W9B3ZX Drainage of Left Pleural Cavity, Percutaneous Approach, Diagnostic (ICD-10-PCS; principal; 2018-01-10)
DX: J90 Pleural effusion, not elsewhere classified (principal); N17.9 Acute kidney failure, unspecified; N18.4 Chronic kidney disease, stage 4 (severe); I13.0 Hypertensive heart and chronic kidney disease with heart failure and stage 1 through stage 4 chronic kidney disease, or unspecified chronic kidney disease; I50.32 Chronic diastolic (congestive) heart failure; R06.02 Shortness of breath; M10.9 Gout, unspecified; I35.0 Nonrheumatic aortic (valve) stenosis; E11.22 Type 2 diabetes mellitus with diabetic chronic kidney disease; E78.5 Hyperlipidemia, unspecified; E03.9 Hypothyroidism, unspecified; Z80.8 Family history of malignant neoplasm of other organs or systems; Z83.3 Family history of diabetes mellitus; Z82.49 Family history of ischemic heart disease and other diseases of the circulatory system; Z85.3 Personal history of malignant neoplasm of breast; R80.9 Proteinuria, unspecified; Z96.643 Presence of artificial hip joint, bilateral; D64.9 Anemia, unspecified
CPT/HCPCS: 32555; 36415; 71045; 71046; 71250; 74470; 76604; 76770; 80048; 80053; 80061; 81001; 82550; 82553; 82570; 82948; 83036; 83540; 83615; 83735; 83880; 84100; 84156; 84157; 84300; 84311; 84466; 84484; 85025; 85610; 85730; 87070; 87071; 87075; 87086; 87102; 87116; 87205; 87206; 88112; 88305; 89051; 93005; 93306; 94640; 99284; J1940; J2270

== ENCOUNTER → 2018-02-08 | Outpatient (CLI) | payer MEDICARE ==
[~2018-02-08] MED LIST: ACTOS15 MG PO; AMLODIPINE BESY10 MG PO; FENOFIBRATE160 MG PO; LASIX20 MG PO; METOPROLOL TART50 MG PO; MUCINEX PO; PROAIR HFA INH8.5 GM INH; SYNTHROID125 MCG PO; ULORIC80 MG PO
--- NOTE | 2018-02-08 10:56 | Diagnostic Imaging Report ---
PROCEDURE: CT CHEST WITHOUT CONTRAST CT scan of the chest WITHOUT intravenous contrast, using standard protocol. TECHNIQUE: The chest was scanned utilizing a multidetector helical scanner from the apex to the level of the adrenal glands. No IV contrast was administered because of <referring physician request. Coronal and sagittal multiplanar reformations were obtained. COMPARISON: 01/10/2018. INDICATIONS: PLEURAL EFFUSION FINDINGS: Lines/tubes: None. Lungs and Airways: Calcified granuloma left upper lobe adjacent to the major fissure. Unchanged groundglass opacities in the left upper lobe, with linear and reticular opacities in the lingula. Passive atelectasis of the left lower lobe. Right lung is hyperinflated. Bronchiectasis and volume loss in the medial segment of the right middle lobe and the medial basal segment of the right lower lobe, unchanged. Pleura: Moderate left pleural effusion without significant interval change relative to 01/10/2018. Heart and mediastinum: The visualized portions of the thyroid gland appear normal. Atherosclerotic calcification of the thoracic aorta and great vessel origins, with large, coarse calcification at the left subclavian artery origin. No ectasia or aneurysmal dilatation. Significant [place] coronary artery calcifications. Pulmonary outflow tract is of normal caliber. No axillary, hilar, or mediastinal lymphadenopathy. Soft tissues: No focal soft tissue abnormalities. Multiple right chest wall surgical clips unchanged. No osseous destructive lesions. Multilevel degenerative disc changes of the thoracic spine. Degenerative joint disease of the glenohumeral joints left greater than right. Abdomen: Visualized portions of the liver, spleen, adrenals, pancreas, and upper poles of the kidneys are unremarkable. Status post cholecystectomy. Bones: As above. IMPRESSION: Stable moderate left pleural effusion relative to CT 01/10/2018. Additional findings as above. Dictated by: Alex Arora M.D. on 02/08/2018 at 11:00 Electronically approved by: Alex Arora M.D. on 02/08/2018 at 11:00
== END ==
LOC: CT 10:03
PROVIDERS: ATTEND Internal Medicine
DX: J90 Pleural effusion, not elsewhere classified (principal)
CPT/HCPCS: 71250

== ENCOUNTER 2018-06-12 11:05 | Inpatient (IN) | payer MEDICARE ==
[~2018-06-12] VITALS: Ht 167.6 cm; Wt 64.9 kg
[2018-06-12] MEDS ORDERED: ASPIRIN 81 MG CHEW TAB PO ONE (12:15)
[2018-06-12 12:48] LABS: BASOPHILS # (AUTO) 0.1 (0.0-0.1); BASOPHILS % 0.5 % (0.0-1.0); EOSINOPHILS # (AUTO) 0.5 (0.0-0.4); EOSINOPHILS % 5.5 % (0.0-6.0); HEMATOCRIT 31.4 % (34.2-44.1); HEMOGLOBIN 10.1 g/dL (12.0-16.0); LYMPHOCYTES # (AUTO) 0.7 (1.0-3.2); LYMPHOCYTES % 6.8 % (18.0-39.1); MEAN CORPUSCULAR HEMOGLOBIN 29.7 pg (28-32); MEAN CORPUSCULAR HGB CONC 32.2 g/dL (31-35); MEAN CORPUSCULAR VOLUME 92.4 fL (81-99); MONOCYTES # (AUTO) 0.5 (0.2-0.8); MONOCYTES % 5.3 % (4.4-11.3); NEUTROPHILS # (AUTO) 7.8 (2.1-6.9); NEUTROPHILS % 81.6 % (38.7-80.0); PLATELET COUNT 282 x10e3/uL (140-360); RED CELL DISTRIBUTION WIDTH 14.7 % (11.7-14.4)
[2018-06-12 13:11] LABS: ALBUMIN/GLOBULIN RATIO 0.6 (0.8-2.0); ANION GAP 14.9 mmol/L (8-16); CALCIUM 9.6 mg/dL (8.4-10.2); CREATININE, SERUM 1.77 mg/dL (0.57-1.11); POTASSIUM 3.9 mmol/L (3.5-5.1)
[2018-06-12 13:18] LABS: CREATINE KINASE MB 0.6 ng/mL (0-5.0)
--- NOTE | 2018-06-12 13:38 | Diagnostic Imaging Report ---
EXAM: US CHEST (INCL MEDIASTINUM) DATE: 06/12/2018 12:00 AM INDICATION: Pleural effusion COMPARISON: 06/12/2018 CT chest, no report available FINDINGS: Limited sonographic evaluation of the chest reveals moderate to large amount of pleural fluid on the left, similar to recent CT. No significant pleural fluid noted on the right. IMPRESSION: Moderate to large left pleural effusion similar to 06/12/2018 CT. Signed by: Dr. Alfonzo Taylor MD on 06/12/2018 1:34 PM
[2018-06-12 14:40] LABS: INR 1.1; PROTHROMBIN TIME 15.2 seconds (11.9-14.5)
[2018-06-12 14:41] LABS: PARTIAL THROMBOPLASTIN TIME 40.4 seconds (23.8-35.5)
[2018-06-12] MEDS ORDERED: FENTANYL CITRATE/PF 100MCG/2 ML INJ ONE (15:47)
[2018-06-12] MEDS ORDERED: FENTANYL CITRATE/PF 100MCG/2 ML INJ IV ONE (16:00)
--- NOTE | 2018-06-12 16:20 | Consultation ---
DATE OF CONSULTATION: June 12, 2018 PULMONARY CONSULTATION REASON FOR CONSULT: Pleural effusion. CHIEF COMPLAINT: Shortness of breath and severe sharp chest pain. HISTORY OF PRESENT ILLNESS: Ms. Cohen is an 82-year-old female. She was scheduled for a CT scan of the chest from my office. She is well known to me. She has left-sided pleural effusion. It has been exudative in the past, and the etiology is not very clear as complete workup has been negative. It is recurrent. She has a remote history of breast cancer 12 years ago, and every year her exam has been normal. She denies any complaints of chest pain, nausea or vomiting. She reports that when she was trying to go home after finishing up the CAT scan, she had sharp left-sided chest pain; so, she decided to come to the emergency room. She denies any nausea, vomiting, diarrhea or focal weakness. REVIEW OF SYSTEMS: GENERAL: Denies any fever or chills. HEAD: Denies any head trauma. ENT: Denies any earache. CVS: Severe chest pain. RESPIRATORY: Shortness of breath. REST OF THE REVIEW OF SYSTEMS: Negative except as in history of present illness. PAST MEDICAL HISTORY: Hypertension, chronic kidney disease, hyperlipidemia. FAMILY HISTORY: Significant for diabetes and hypertension. SOCIAL HISTORY: Currently she is living with her son. She does not have any history of smoking. PAST SURGICAL HISTORY: Three hip replacements, lumpectomy. PHYSICAL EXAMINATION: VITALS: Temperature 98.6, pulse of 61, blood pressure 161/54, respiratory rate of 18. HEENT: Head atraumatic, normocephalic. NECK: Supple. CHEST: With markedly reduced air entry on the left side. No crackles, no wheezing. HEART: S1 and S2 audible. ABDOMEN: Soft, nontender and nondistended. EXTREMITIES: No clubbing, cyanosis. Bilateral pedal edema. NEUROLOGICALLY: She is awake and alert. LABORATORY DATA: White count of 9000, hemoglobin 10.1, platelets 282. Chemistry: Sodium 135, potassium 3.9, chloride 101, BUN 63, creatinine 1.7. CT OF THE CHEST: I have reviewed the images as showing large left pleural effusion and atelectasis. No mediastinal or hilar lymphadenopathy. Films reviewed. ASSESSMENT: Ms. Cohen is an 82-year-old female with large left-sided pleural effusion. This is recurrent. Patient is well known to me from my office visit. She has exudative effusion, and she had recurrent exudative effusion in the past. The etiology is not very clear. Workup has been negative. PLAN: Patient will get IR-guided thoracentesis. Workup has been ordered. I have discussed with Dr. Bansal. We will consult Oncology as patient has remote history of breast cancer. It may be the etiology of the recurrent pleural effusion could be due to breast cancer recurrence. Chronic kidney disease stable. Thank you for this consult. Job#: [id number] EV
--- NOTE | 2018-06-12 16:21 | Diagnostic Imaging Report ---
PROCEDURE: ULTRASOUND GUIDED THORACENTESIS COMPARISON: None. INDICATIONS:pleural effusion FINDINGS: After informed consent was obtained, the patient was placed in the sitting position and preliminary ultrasound of the posterior chest identified a safe route into the left pleural effusion. The overlying skin was prepped and draped in usual sterile fashion. Lidocaine 1% was used for local anesthesia. Under ultrasound guidance, a 5 Icelandic sheathed centesis needle was advanced into the pleural fluid and 1,200 cc were aspirated. The patient tolerated the procedure well and there were no immediate post-procedural complications. A post-thoracentesis chest radiograph will be obtained. Patient did complain of severe pain following procedure. A dose of 25 mcg of Fentanyl was administered IV for pain. CONCLUSION: Uncomplicated ultrasound-guided left-sided thoracentesis with removal of 1,200 cc. Pedro Alcantara D.O. Dictated by: Pedro Alcantara D.O. on 06/12/2018 at 16:29 Electronically approved by: Pedro Alcantara D.O. on 06/12/2018 at 16:29
--- NOTE | 2018-06-12 16:35 | Diagnostic Imaging Report ---
EXAM: XR CHEST 1 VIEW DATE: 06/12/2018 3:44 PM INDICATION: Thoracentesis COMPARISON: None FINDINGS: Lines and Tubes: None Heart and Mediastinum: No acute cardiomediastinal findings. Lungs and Pleura: Moderate pleural parenchymal opacity left mid and lower lung obscures left heart border and left hemidiaphragm. No pneumothorax identified. Bones and Soft Tissues: Surgical clips right axilla. Moderate degenerative changes left glenohumeral joint. IMPRESSION: 1. Moderate left effusion with superimposed atelectasis and/or pneumonia. No distinct pneumothorax. Signed by: Dr. Alfonzo Taylor MD on 06/12/2018 4:32 PM
[2018-06-12 16:55] LABS: BODY FLUID APPEARANCE SL.CLOUDY; BODY FLUID COLOR YELLOW; BODY FLUID TYPE PLEURAL
[2018-06-12 16:59] LABS: RBC,BODY FLUID 605 cells/uL; WBC,BODY FLUID 302 cells/uL
[2018-06-12 18:05] LABS: EOSINOPHILS,BODY FLUID 1 %; LYMPHOCYTES,BODY FLUID 60 %; MONO/MACROPHG,BODY FLUID 36 %; NEUTROPHILS,BODY FLUID 3 %
[2018-06-12] MEDS ORDERED: ETOMIDATE 2 MG/ML 10 ML INJ IV ONE (18:17)
[2018-06-12] MEDS ORDERED: MIDAZOLAM HCL 2 MG/2 ML VIAL ONE (18:17)
[2018-06-12] MEDS ORDERED: SUCCINYLCHOLINE CHLORIDE 20 MG/ML 10ML VIAL ONE (18:17)
[2018-06-12] MEDS ORDERED: HYDRALAZINE HCL 20 MG/ML VIAL IV PRN (19:15)
[2018-06-12] MEDS: MORPHINE SULFATE INJ 4 MG/ML INJ IV PRN (19:30)
[2018-06-12] MEDS: ONDANSETRON HCL INJ 2 MG/ML VIAL IV PRN (19:30)
[2018-06-12 20:52] LABS: CREATINE KINASE MB 0.5 ng/mL (0-5.0)
[2018-06-12 21:30] VITALS: BP 134/46
[2018-06-12 21:47] VITALS: BP 119/78
[2018-06-12 23:52] VITALS: BP 114/47
[2018-06-13] VITALS (166 sets, daily range): BP systolic 65–174; BP diastolic 32–80
[2018-06-13] MEDS: MORPHINE SULFATE INJ 4 MG/ML INJ IV PRN (01:10)
[2018-06-13 03:45] LABS: BASOPHILS % 0.5 % (0.0-1.0); EOSINOPHILS # (AUTO) 0.7 (0.0-0.4); EOSINOPHILS % 9.1 % (0.0-6.0); HEMATOCRIT 30.3 % (34.2-44.1); HEMOGLOBIN 9.5 g/dL (12.0-16.0); LYMPHOCYTES # (AUTO) 0.7 (1.0-3.2); LYMPHOCYTES % 8.6 % (18.0-39.1); MEAN CORPUSCULAR HEMOGLOBIN 29.6 pg (28-32); MEAN CORPUSCULAR HGB CONC 31.4 g/dL (31-35); MEAN CORPUSCULAR VOLUME 94.4 fL (81-99); MONOCYTES # (AUTO) 0.5 (0.2-0.8); MONOCYTES % 6.4 % (4.4-11.3); NEUTROPHILS # (AUTO) 5.9 (2.1-6.9); NEUTROPHILS % 75.1 % (38.7-80.0); PLATELET COUNT 223 x10e3/uL (140-360); RED BLOOD COUNT 3.21 x10e6/uL (3.6-5.1); RED CELL DISTRIBUTION WIDTH 14.6 % (11.7-14.4)
[2018-06-13 03:56] LABS: ALBUMIN 2.6 g/dL (3.5-5.0); ALBUMIN/GLOBULIN RATIO 0.6 (0.8-2.0); ANION GAP 14.9 mmol/L (8-16); CALCIUM 8.8 mg/dL (8.4-10.2); CREATININE, SERUM 1.64 mg/dL (0.57-1.11); POTASSIUM 3.9 mmol/L (3.5-5.1)
[2018-06-13 04:16] LABS: FREE T4 (FREE THYROXINE) 1.19 ng/dL (0.9-1.8); THYROID STIMULATING HORMONE 8.201 uIU/mL (0.350-4.940)
[2018-06-13 04:18] LABS: CREATINE KINASE MB 2.1 ng/mL (0-5.0)
[2018-06-13] MEDS ORDERED: LEVOTHYROXINE SODIUM 125 MCG TAB PO SCH (06:30)
[2018-06-13] MEDS: ONDANSETRON HCL INJ 2 MG/ML VIAL IV PRN (07:06)
[2018-06-13] MEDS ORDERED: VANCOMYCIN 1GM/NS 250 ML 250 ML IV ONE (07:15)
[2018-06-13] MEDS: FAMOTIDINE 20 MG TAB PO SCH ×2 (07:30→16:30)
--- NOTE | 2018-06-13 07:51 | Diagnostic Imaging Report ---
PROCEDURE: A single AP view of the chest. COMPARISON: Chest radiograph 06/12/18. INDICATIONS: SHORTNESS OF BREATH FINDINGS: Lines/tubes: None. Lungs: Low lung volumes. There is new patchy consolidation in the right lower lung. Persistent patchy opacity in the left lower lung. Pleura: Persistent moderate left pleural effusion. Heart and mediastinum: The cardiomediastinal silhouette is unchanged. Bones: Surgical clips in the right axilla. IMPRESSION: New consolidation in the right lower lung suspicious for aspiration or pneumonia. Persistent moderate left pleural effusion with associated atelectasis and/or pneumonia. Dictated by: ARVIND SWIFT M.D. on 06/13/2018 at 7:59 Electronically approved by: ARVIND SWIFT M.D. on 06/13/2018 at 7:59
[2018-06-13] MEDS ORDERED: PROPOFOL IV EMULSION 10MG/ML 100 ML ONE (07:57)
[2018-06-13] MEDS: CEFEPIME HCL 1 GM VIAL IV SCH ×2 (08:05→18:27)
[2018-06-13] MEDS ORDERED: DEXTROSE 50% SYRINGE 50 ML IV PRN (08:45)
[2018-06-13] MEDS ORDERED: AMLODIPINE BESYLATE 10 MG TAB PO SCH (09:00)
[2018-06-13] MEDS ORDERED: FUROSEMIDE 20 MG TAB PO SCH (09:00)
[2018-06-13] MEDS ORDERED: FEBUXOSTAT 80 MG TAB PO SCH (09:00)
[2018-06-13] MEDS: GUAIFENESIN 600 MG TAB PO SCH ×2 (09:00→17:00)
[2018-06-13] MEDS ORDERED: MUCINEX 600 MG PO SCH (09:00)
[2018-06-13] MEDS ORDERED: PIOGLITAZONE HCL 15 MG TAB PO SCH (09:00)
[2018-06-13] MEDS: METOPROLOL TARTRATE 50 MG TAB PO SCH ×2 (09:00→17:00)
[2018-06-13] MEDS ORDERED: NON-FORMULARY MEDICATION (Fenofibrate 160 MG) PO SCH (09:00)
[2018-06-13] MEDS: FENOFIBRATE 145 MG TAB PO SCH (09:00)
--- NOTE | 2018-06-13 09:40 | Diagnostic Imaging Report ---
A single AP view of the chest. COMPARISON: Chest radiograph 06/12/18. INDICATIONS: SHORTNESS OF BREATH FINDINGS: Exam substantially limited by portable technique. Lines/tubes: Interval intubation, the ET tube terminates 5.5 cm above the precious. Right IJ central line terminates at the expected location at the cavoatrial junction. Lungs: Limited evaluation of the right lung given technique. Patchy consolidation in the lower lung zones bilaterally. Pleura: Persistent moderate left pleural effusion. Limited evaluation for pneumothorax given technique, no large pneumothorax is identified. Heart and mediastinum: The cardiomediastinal silhouette is unchanged. Atherosclerotic calcification of the aortic arch. Bones: Surgical clips in the right axilla. IMPRESSION: Interval intubation and central line placement as above. Limited evaluation for pneumothorax given portable technique. No large pneumothorax is evident. Suggest follow-up repeat chest radiograph. Right lower lung consolidation suspicious for aspiration or pneumonia. Persistent moderate left pleural effusion with associated atelectasis and/or pneumonia. Dictated by: ARVIND SWIFT M.D. on 06/13/2018 at 9:47 Electronically approved by: ARVIND SWIFT M.D. on 06/13/2018 at 9:47
[2018-06-13 09:54] LABS: ABG PCO2 37 mmHg (41-51); ABG PH 7.46 (7.31-7.41); ABG PO2 166 mmHg (80-105)
[2018-06-13 09:55] LABS: ABG HCO3 26 mmol/L (23-28)
[2018-06-13] MEDS: INSULIN LISPRO 100 UNIT/1 ML 3ML VIAL SQ SCH ×3 (11:30→21:00)
[2018-06-13] MEDS: PIPER-TAZ 3.375 GM 50 ML IV SCH ×2 (14:00→22:15)
[2018-06-13] MEDS ORDERED: SODIUM CHLORIDE 0.9% 250ML 250 ML ONE (14:55)
--- NOTE | 2018-06-13 16:43 | Diagnostic Imaging Report ---
EXAMINATION: CT scan of the chest without contrast. TECHNIQUE: Spiral CT images of the chest were performed from the lung apices to the level of the adrenal glands without IV contrast material. Coronal and sagittal reformatted images were obtained. Low-dose protocol was utilized. DLP: 561.4 mGy-cm COMPARISON: Chest CT 06/12/18. CLINICAL HISTORY: Shortness of breath DISCUSSION: LINES/TUBES: ET tube terminates in the mid trachea. Right IJ non-tunneled central line terminating in the lower SVC. LUNGS AND AIRWAYS: New ground glass and consolidative opacity in the right lower lobe. There is partial consolidation with associated volume loss in the left lower lobe. Rounded consolidation associated with pleural effusion and volume loss in the left lower lobe on series 3, image 59 likely represents an area of round atelectasis. Right upper lobe calcified granuloma. Mucus plugging in left lower lobe bronchi. There are secretions in the mid trachea adjacent to the ET tube. PLEURA: Interval decrease in size of left sided pleural effusion, now moderate in size. HEART AND MEDIASTINUM: The thyroid gland is not well evaluated. No pericardial effusion. Calcification within the aorta, coronary arteries, aortic valve, mitral valve and great vessels are again noted. LYMPH NODES: There is no mediastinal, hilar or axillary lymphadenopathy. Small mediastinal lymph nodes do not appear pathologic. ABDOMEN: Limited njm-fhtstkwx-azduheea views of the upper abdomen show no abnormality within the visualized liver, spleen, or pancreas. Status post cholecystectomy. The adrenal glands are normal. BONES AND SOFT TISSUES: No acute bony abnormalities. Right axillary clips. IMPRESSION: New consolidative and groundglass opacity in the right lower lobe, consistent with aspiration or pneumonia. Secretions in the mid trachea adjacent to the ET tube. Interval decrease in size of left sided pleural effusion, now moderate in size. Associated consolidation, likely representing atelectasis, although superimposed pneumonia is possible in the appropriate setting. Opacity in the left lower lobe likely reflects round atelectasis. Follow-up imaging is recommended to assess for resolution. Signed by: Dr. Didi Dubose MD on 06/13/2018 4:40 PM
[2018-06-13] MEDS: VANCOMYCIN 1GM/NS 250 ML 250 ML IV SCH (18:59)
[2018-06-13] MEDS ORDERED: DEXTROSE 5%/0.45% SOD CHL 1,000 ML IV SCH (19:45)
[2018-06-14] VITALS (163 sets, daily range): BP systolic 68–179; BP diastolic 29–159
--- NOTE | 2018-06-14 00:42 | Consultation ---
DATE OF CONSULTATION: June 12, 2018 REQUESTING PHYSICIAN: Dr. Cristi Hughes SERVICE: Hematology-oncology. REASON FOR CONSULTATION: Evaluation and management of patient with recurrent pleural effusion. HISTORY OF PRESENTING ILLNESS: Ms. Cohen is a very pleasant 82-year-old female with known history of hypertension, chronic kidney disease, hyperlipidemia, and history of breast cancer requiring lumpectomies; and evaluated by pulmonary service due to recurrent pleural effusion. She underwent thoracocentesis and pleural fluid remained exudative with cytology remaining negative for a malignancy. Due to recurrent effusion, she has again presented to the hospital and admitted to inpatient floor. Due to respiratory symptoms, she was transferred to intensive care unit and intubated. Hematology-oncology has been consulted to assist with the management specifically further workup of recurrent pleural effusion in context of malignancy. PAST MEDICAL HISTORY: 1. Hypertension. 2. Chronic kidney disease. 3. Hyperlipidemia. 4. Recurrent pleural effusion of uncertain etiology. 5. History of breast cancer 12 years ago, status post lumpectomy. PAST SURGICAL HISTORY: 1. Hip replacement. 2. Lumpectomy. SOCIAL HISTORY: No history of smoking, alcohol use, or illicit drug use. She lives with her son. CURRENT MEDICATIONS: Reviewed and as per electronic medical record. PHYSICAL EXAMINATION: VITAL SIGNS: Reviewed and as per electronic medical record. HEENT: Head atraumatic, normocephalic. NECK: Supple. CVS: S1 and S2 audible. RESPIRATORY: Decreased bilateral air entry. ABDOMEN: Positive bowel sounds. EXTREMITIES: Positive edema. NEURO: AMS. LABORATORY DATA: Reviewed and as per electronic medical record. ASSESSMENT AND PLAN: Ms. Cohen is an 82-year-old female with multiple medical problems including remote history of breast cancer status post lumpectomy, hypertension, chronic kidney disease, and hyperlipidemia, who has presented to the pulmonary service due to recurrent pleural effusion and subsequently underwent a workup including thoracocentesis, which remained nondiagnostic for malignancy. Now she has presented with worsening shortness of breath. Workup including CT of the chest revealed recurrent pleural effusion. Hematology-oncology has been consulted to assist with the management. I have reviewed the records and discussed this case at length with the pulmonary service. At this point, recommendation would be to stabilize the patient and treat underlying pneumonia. She probably will require thoracocentesis or possible chest tube placement. Once she gets stabilized, then she probably will need a PET CT scan of the body to rule out any underlying malignant lesion which may be hiding behind the effusion. Cytology will be again requested to evaluate for malignancy. Thank you for the consult. I will continue to be available. Please call with questions. Job#: [id number]
[2018-06-14] MEDS: FENTANYL CITRATE INJ 2,000 MCG in SODIUM CHLORIDE 0.9% 250ML 210 ML IV PRN (03:22)
[2018-06-14 04:34] LABS: BASOPHILS % 0.4 % (0.0-1.0); EOSINOPHILS # (AUTO) 0.6 (0.0-0.4); HEMATOCRIT 26.9 % (34.2-44.1); HEMOGLOBIN 8.3 g/dL (12.0-16.0); LYMPHOCYTES # (AUTO) 0.6 (1.0-3.2); LYMPHOCYTES % 7.3 % (18.0-39.1); MEAN CORPUSCULAR HEMOGLOBIN 29.1 pg (28-32); MEAN CORPUSCULAR HGB CONC 30.9 g/dL (31-35); MEAN CORPUSCULAR VOLUME 94.4 fL (81-99); MONOCYTES # (AUTO) 0.5 (0.2-0.8); NEUTROPHILS # (AUTO) 6.1 (2.1-6.9); NEUTROPHILS % 77.9 % (38.7-80.0); PLATELET COUNT 153 x10e3/uL (140-360); RED BLOOD COUNT 2.85 x10e6/uL (3.6-5.1); RED CELL DISTRIBUTION WIDTH 14.8 % (11.7-14.4)
[2018-06-14 05:12] LABS: ANION GAP 12.8 mmol/L (8-16); CALCIUM 8.4 mg/dL (8.4-10.2); CREATININE, SERUM 2.5 mg/dL (0.57-1.11); MAGNESIUM 1.6 MG/DL (1.3-2.1); POTASSIUM 3.8 mmol/L (3.5-5.1)
[2018-06-14 05:32] LABS: FERRITIN 338.17 ng/mL (4.63-204.00)
[2018-06-14 05:49] LABS: FOLATE 14.7 ng/mL (7.0-15.4)
[2018-06-14] MEDS: LEVOTHYROXINE SODIUM 100 MCG TAB PO SCH (06:00)
[2018-06-14] MEDS: PIPER-TAZ 3.375 GM 50 ML IV SCH ×2 (06:38→18:25)
[2018-06-14] MEDS: VANCOMYCIN 1GM/NS 250 ML 250 ML IV SCH (07:15)
[2018-06-14] MEDS: CEFEPIME HCL 1 GM VIAL IV SCH (07:15)
[2018-06-14] MEDS: FAMOTIDINE 20 MG TAB PO SCH (07:30)
[2018-06-14] MEDS: ALBUTEROL/IPRATROPIUM 3 ML NEB NEB PRN ×3 (07:50→19:40)
[2018-06-14] MEDS: FENOFIBRATE 145 MG TAB PO SCH (09:00)
[2018-06-14] MEDS: GUAIFENESIN 600 MG TAB PO SCH ×2 (09:00→16:38)
[2018-06-14] MEDS ORDERED: SODIUM CHLORIDE 0.9% 1000ML 2,000 ML ONE (10:17)
[2018-06-14] MEDS ORDERED: DEXTROSE 50% SYRINGE 50 ML IV PRN (10:30)
--- NOTE | 2018-06-14 11:02 | Diagnostic Imaging Report ---
PROCEDURE: A single AP view of the chest. COMPARISON: Chest radiograph and chest CT 06/13/2018. INDICATIONS: PLEURAL EFFUSION, INTUBATION FINDINGS: Lines/tubes: The ET tube terminates 6 cm above the precious. Right IJ central line terminates at the expected location at the cavoatrial junction. Lungs: Persistent hazy and patchy opacities in the lower lung zone. Central vascular congestion without definite pulmonary edema. Pleura: Persistent moderate left pleural effusion. No evidence of pneumothorax. Heart and mediastinum: The cardiomediastinal silhouette is unchanged. Atherosclerotic calcification of the aortic arch. Bones: Surgical clips in the right axilla. IMPRESSION: Right lower lung consolidation suspicious for aspiration or pneumonia. Persistent moderate left pleural effusion with associated atelectasis and/or pneumonia. Lines and tubes as above. No evidence of pneumothorax. Dictated by: ARVIND SWIFT M.D. on 06/14/2018 at 11:10 Electronically approved by: ARVIND SWIFT M.D. on 06/14/2018 at 11:10
[2018-06-14] MEDS: INSULIN REGULAR, HUMAN 100 UNIT/1 ML 3ML VIAL SQ SCH ×3 (11:30→21:00)
[2018-06-14 13:48] LABS: ABG HCO3 20 mmol/L (23-28); ABG PCO2 53 mmHg (41-51); ABG PO2 67 mmHg (80-105)
--- NOTE | 2018-06-14 15:25 | Diagnostic Imaging Report ---
EXAM: Abdomen 1 Views INDICATION: \S\ogt placement \[id number] \S\1430 \S\Y COMPARISON: None FINDINGS: Lower chest and upper abdomen all included in the film. Partially visualized NG/OG NG tube which is overlying the stomach. Mild amount of of stool in the colon. No dilated loops of small bowel. No renal calculi. No abnormal soft tissue masses. Moderate degenerative changes in the lumbar spine and pelvis. Surgical clips overlying the right upper quadrant. Small left pleural effusion with adjacent consolidation. IMPRESSION: NG/OG tube overlying the gastric body. Signed by: Dr. Megan Brantley M.D. on 06/14/2018 3:22 PM
--- NOTE | 2018-06-14 15:35 | Consultation ---
ATTENDING PHYSICIAN: Dr. Koko aBnsal. INFECTIOUS DISEASE CONSULTATION REASON FOR CONSULTATION: Pleural effusion. Thank you, Dr. Bansal, for asking me to see this patient. HISTORY: The patient is an 82-year-old woman, referred for pleural effusions. She is unable to give history because she is sedated and intubated. Chart review showed that she was admitted through the emergency department with left pleural effusion. She presented to emergency department with left chest pain. The patient has been having progressive shortness of breath and cough for about 2 weeks and had a scheduled chest CT scan moments earlier. There was no fever, chills, or hemoptysis. The patient has had recurrent left pleural effusion about for 1 year, which required intermittent thoracentesis. There is no known TB exposure or foreign travel. The patient owns a dog, which is healthy. PAST MEDICAL HISTORY: Diabetes mellitus type 2, hypertension, hyperlipidemia, chronic kidney disease, exudative left pleural effusion, breast cancer treated with surgery and radiation about 12 years ago, and hypothyroidism. PAST SURGICAL HISTORY: Breast lumpectomy, bilateral hip replacements, right hip replacement redo due to loosening of hardware, and cholecystectomy. ALLERGIES: IODINE. MEDICATIONS: See MAR. The current antibiotic is Zosyn 3.375 grams IV q.8 hours. She received vancomycin and cefepime earlier. IMMUNIZATION: She received pneumococcal vaccination in 2017 and influenza vaccine in June 2018 (last week). FAMILY HISTORY: Noncontributory. SOCIAL HISTORY: No alcohol or tobacco use. REVIEW OF SYSTEMS: Unable to obtain. PHYSICAL EXAMINATION GENERAL: Sedated. VITAL SIGNS: T-max 98.8, pulse 94, respiratory rate 20, blood pressure 135/40. Weight 166 pounds. HEENT: Normocephalic. There is no icterus or injection of conjunctivae. There is no ear or nasal discharge. Orally intubated. NECK: Supple. No lymphadenopathy. LUNGS: Bronchial breath sounds with few rhonchi bilaterally. HEART: Normal S1 and S2. ABDOMEN: Soft. EXTREMITIES: There is no edema, clubbing, or cyanosis. SKIN: There is no acute erythema. 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 LABORATORY AND DIAGNOSTICS: WBC 7770, hemoglobin 8.3, platelets 153, neutrophils 77.9, lymphs 7.3, mono 6, eosinophils 8, and basophils 0.4. BUN 50, creatinine 2.5. Blood culture showed no growth. Pleural fluid culture; no growth. Tracheal aspirate culture was collected. Chest CT scan showed new consolidative and ground-glass opacity in the right lower lobe consistent with aspiration or pneumonia and interval decrease in the size of the left-sided pleural effusion with associated consolidation. IMPRESSION 1. Aspiration pneumonia, present on admission. 2. Acute respiratory failure. 3. Recurrent left pleural effusion. 4. Probable acute kidney injury on chronic kidney disease. PLAN 1. Check tracheal aspirate culture. 2. Reduce Zosyn to 3.375 g q.12 hours. 3. Suggest thoracic surgical consult for pleural biopsy. Job#: [id number] JV MAX
[2018-06-14] MEDS ORDERED: MIDODRINE HCL 5 MG TABLET PO SCH (16:00)
[2018-06-14] MEDS ORDERED: MIDODRINE 2.5 MG TAB PO SCH (16:00)
[2018-06-14] MEDS: FUROSEMIDE INJ 10 MG/ML 4 ML VIAL IV SCH (16:00)
--- NOTE | 2018-06-14 17:01 | Consultation ---
DATE OF CONSULTATION: June 14, 2018 RENAL CONSULTATION Thank you for the consultation, Dr. Bansal. Ms. Cohen is well known to me from previous hospitalization. Her baseline serum creatinine is around 1.6 to 1.7 mg/dL. She has chronic kidney disease, stage 3. She came in with creatinine around about there. However, decompensated with hypotension and worsening shortness of breath. Intubated. Has left-sided infiltrate, consolidation and effusion also. The patient is oliguric right now in the ICU. Systolic BP has been in the 90s. She is not making urine. Creatinine has gone up to 2.5. Incidentally, she was on vancomycin, which has been stopped. Renal consultation has been asked for the management of her acute kidney injury on chronic kidney disease, stage 3. Currently intubated and sedated. However, she is arousable and does respond to some commands. She is oliguric. Much of the history is obtained from the chart. On admission, she did have shortness of breath. No vomiting. No diarrhea. No localized weakness on admission. No chest pain, either. No nausea and no vomiting. PAST MEDICAL HISTORY: As outlined above. Also has a history of hypertension, CKD stage 3, hyperlipidemia. FAMILY HISTORY: Diabetes mellitus, hypertension. SOCIAL HISTORY: No tobacco. No alcohol use. REVIEW OF SYSTEMS: See HPI. Otherwise, all systems are negative. MEDICATIONS: Have all been reviewed per chart. ALLERGIES: IODINE. PHYSICAL EXAMINATION VITAL SIGNS: Blood pressure currently 90s/50s. Pulse is 70s to low 100s. Afebrile. Respirations 22. HEENT: No cervical lymphadenopathy. Moist oral mucosa. NECK: Supple, without masses. No JVD. SKIN: Moist, with good skin turgor. CHEST: Good expansion. No chest wall tenderness. LUNGS: Rhonchi bilaterally. CARDIOVASCULAR: S1 and S2. No obvious gallop or murmur. ABDOMEN: Soft. Positive bowel sounds. Nontender. No organomegaly. EXTREMITIES: No evidence of lower extremity edema. No clubbing. No cyanosis. NEUROLOGIC: Intubated, sedated, difficult to do neurological exam. LABS: Sodium 139, potassium 3.0, chloride 107, bicarb 23, BUN 50, creatinine 2.5, calcium 8.4, magnesium 1.6. Hematology: H and H 8.3 and 26.9, white cell count 7.7, platelet count 153. IMPRESSION AND PLAN 1. Acute kidney injury on chronic kidney disease, stage 3, suspect acute tubular necrosis secondary to hypotension. The patient is somewhat on the fluid overload side. I would favor diuresing the patient at this time rather than giving aggressive IV fluid hydration. I agree with tube feeds to be started, Nepro. I will diurese with Lasix 40 mg IV q.12 h. I will also add renal dose dopamine at 2 mcg/kg per minute, which will help improve renal perfusion and help improve the patient's blood pressure, which will also allow for improvement in kidney function and increase in urine output. Will continue to monitor closely and make further recommendations. Review labs in the morning including basic metabolic panel, magnesium, phosphorus, CBC, urine and electrolytes. Will also get a renal ultrasound and evaluate for hydronephrosis, also for chronic kidney disease. 2. Hypotension. Renal dose dopamine will be added 2 mcg/kg per minute and no titration. Will also add midodrine 5 mg t.i.d. which will help improve the blood pressure, which will overall improve renal perfusion. 3. Oliguria/fluid overload. Will add furosemide 40 mg IV q.12 h. and will make further recommendations. 4. The case has been discussed with family members and nursing staff. Total time spent on consult was 35 minutes. We will follow the patient closely and make further recommendations. Thank you for the consult. Job#: [id number] cc:JOVAN BANSAL MD
--- NOTE | 2018-06-14 21:16 | Diagnostic Imaging Report ---
EXAM: Renal Ultrasound INDICATION: Hydronephrosis COMPARISON: None TECHNIQUE: Transverse and longitudinal sonographic images of the kidneys and bladder were obtained. FINDINGS: RIGHT KIDNEY: 9.9 x 3.5 x 2.7 cm, normal cortical thickness. Echogenicity: Normal Hydronephrosis: None Calculi: None Cyst/Mass: None LEFT KIDNEY: 9.3 x 5 x 4.8 cm, normal cortical thickness. Echogenicity: Normal Hydronephrosis: None Calculi: None Cyst/Mass: None BLADDER: The bladder is decompressed by a Lomeli catheter. IMPRESSION: Normal renal ultrasound. No hydronephrosis. Signed by: Dr. Debby Healy M.D. on 06/14/2018 9:13 PM
[2018-06-14] MEDS ORDERED: MIDODRINE HCL 5 MG TABLET PO ONE (22:00)
[2018-06-14] MEDS: HYDROCORTISONE SOD SUCCINATE 100 MG VIAL IV SCH (22:05)
[2018-06-14] MEDS: NOREPINEPHRINE INJ 4MG/4ML 8 MG in DEXTROSE 5% 250ML 250 ML IV SCH (22:05)
[2018-06-15] VITALS (91 sets, daily range): BP systolic 82–174; BP diastolic 35–85
[2018-06-15 00:41] LABS: ABG PH 7.27 (7.31-7.41)
[2018-06-15 00:42] LABS: ABG HCO3 19 mmol/L (23-28); ABG PCO2 42 mmHg (41-51); ABG PO2 201 mmHg (80-105)
[2018-06-15] MEDS: HYDROCORTISONE SOD SUCCINATE 100 MG VIAL IV SCH ×4 (04:11→21:18)
[2018-06-15 04:41] LABS: BASOPHILS % 0.3 % (0.0-1.0); EOSINOPHILS # (AUTO) 0.1 (0.0-0.4); EOSINOPHILS % 0.4 % (0.0-6.0); HEMATOCRIT 27.2 % (34.2-44.1); HEMOGLOBIN 8.4 g/dL (12.0-16.0); LYMPHOCYTES # (AUTO) 0.5 (1.0-3.2); LYMPHOCYTES % 3.4 % (18.0-39.1); MEAN CORPUSCULAR HEMOGLOBIN 29.6 pg (28-32); MEAN CORPUSCULAR HGB CONC 30.9 g/dL (31-35); MEAN CORPUSCULAR VOLUME 95.8 fL (81-99); MONOCYTES # (AUTO) 0.3 (0.2-0.8); MONOCYTES % 2.2 % (4.4-11.3); NEUTROPHILS # (AUTO) 12.4 (2.1-6.9); PLATELET COUNT 233 x10e3/uL (140-360); RED BLOOD COUNT 2.84 x10e6/uL (3.6-5.1)
[2018-06-15 05:01] LABS: ANION GAP 19.5 mmol/L (8-16); CALCIUM 8.2 mg/dL (8.4-10.2); CREATININE, SERUM 3.14 mg/dL (0.57-1.11); POTASSIUM 4.5 mmol/L (3.5-5.1)
[2018-06-15] MEDS: PIPER-TAZ 3.375 GM 50 ML IV SCH ×2 (05:05→17:53)
[2018-06-15] MEDS: LEVOTHYROXINE SODIUM 100 MCG TAB PO SCH (05:06)
[2018-06-15] MEDS: FENTANYL CITRATE INJ 2,000 MCG in SODIUM CHLORIDE 0.9% 250ML 210 ML IV PRN (05:20)
[2018-06-15] MEDS: FUROSEMIDE INJ 10 MG/ML 4 ML VIAL IV SCH ×2 (05:21→17:53)
[2018-06-15 05:26] LABS: MAGNESIUM 1.8 MG/DL (1.3-2.1); PHOSPHORUS 5.3 MG/DL (2.3-4.7)
[2018-06-15 07:20] LABS: BAND NEUTROPHILS % (MANUAL) 1 %; EOSINOPHILS % (MANUAL) 1 % (0-7); LYMPHOCYTES % (MANUAL) 5 % (19-48); MONOCYTES % (MANUAL) 5 % (3.4-9.0); NEUTROPHILS % (MANUAL) 88 % (40-74); PLATELET ESTIMATE ADEQUATE; PLATELET MORPHOLOGY COMMENT NORMAL; RBC MORPHOLOGY COMMENT NORMAL
--- NOTE | 2018-06-15 07:26 | Diagnostic Imaging Report ---
EXAMINATION: CHEST SINGLE (PORTABLE) INDICATION: \S\Intubated \S\Y COMPARISON: 06/14/2018 FINDINGS: AP view TUBES and LINES: Stable endotracheal tube and right internal jugular central line. New nasogastric tube in place with tip extending beyond the inferior margin of the film. LUNGS: Lungs are well inflated. Unchanged left mid to lower lung field opacification. Improved right lower lung field opacity position. PLEURA: No or pneumothorax. HEART AND MEDIASTINUM: The cardiac silhouette is obscured. BONES AND SOFT TISSUES: No acute osseous lesion. Soft tissues are unremarkable. UPPER ABDOMEN: No free air under the diaphragm. IMPRESSION: Unchanged left mid to lower lung field opacification, representing combination of effusion/atelectasis and possibly pneumonia. Improved right lower lung field opacification, representing improved effusion/pneumonia. Signed by: Dr. Jerrod Cruz MD on 06/15/2018 7:23 AM
[2018-06-15] MEDS: INSULIN REGULAR, HUMAN 100 UNIT/1 ML 3ML VIAL SQ SCH ×4 (07:30→20:16)
[2018-06-15] MEDS ORDERED: SODIUM BICARBONATE 8.4% 150 ML in DEXTROSE 5% 1,000 ML IV ONE (07:45)
[2018-06-15] MEDS ORDERED: SODIUM BICARBONATE 8.4% INJ 50 ML SYR IV STA (07:46)
[2018-06-15] MEDS ORDERED: MIDODRINE 2.5 MG TAB PO SCH (08:00)
[2018-06-15] MEDS: MIDODRINE HCL 5 MG TABLET PO SCH ×3 (08:00→16:20)
--- NOTE | 2018-06-15 08:36 | Progress Note ---
DATE: June 15, 2018 RENAL PROGRESS NOTE SUBJECTIVE: Followed for acute kidney injury on chronic kidney disease, stage 3. Kidney function appears to have gotten slightly worse today. Creatinine went up to 3.14. The patient still remains hypotensive. The patient has a primary metabolic acidosis likely secondary to worsening sepsis. I placed the patient on Levophed last night since the dopamine was not improving her blood pressure nor her renal perfusion. Levophed has improved her blood pressure along with the midodrine as well as IV hydrocortisone. The patient is on broad-spectrum empiric antibiotics. The patient has a primary metabolic acidosis this morning and will likely benefit from a bicarb drip along with bicarb boluses. Remains intubated and remains sedated. OBJECTIVE VITAL SIGNS: Have been noted. Blood pressure is 100s/40s, pulse 66, afebrile. LUNGS: Minimal rales at the bases particularly left lung field. CARDIOVASCULAR: S1 and S2. No rub. ABDOMEN: Soft. Positive bowel sounds. EXTREMITIES: No edema. LABS: Sodium 139, potassium 4.5, chloride 109, carb 15, BUN 54, creatinine 3.1, calcium 8.2, magnesium 1.8. IMPRESSION AND PLAN 1. Acute kidney injury on chronic kidney disease, stage 3: Suspect sustained acute tubular necrosis. We will add bicarb drip of D5 water with 3 amps of bicarb to run at 125 mL per hour. We will also give 2 amps of bicarb IV push now. Continue with Lasix 40 mg q.12h. to allow for a diuresis to ensue. We will continue to monitor closely and make further recommendations. No current urgent indication for dialysis at this time. 2. Hypotension: Continue with vasopressor support with Levophed, also added midodrine and IV hydrocortisone. We will also correct the metabolic acidosis which should help improve the blood pressure also. 3. Primary metabolic acidosis likely secondary to hypoperfusion state, sepsis. We will add IV bicarb drip, D5 water with 3 amps of bicarb at 125 mL per hour. We will also give 2 amps of bicarb IV push stat and repeat labs again in the morning. 4. Currently no acute urgent indication for dialysis at this time. Job#: [id number] YOEL
[2018-06-15] MEDS: GUAIFENESIN 600 MG TAB PO SCH ×2 (08:48→17:00)
[2018-06-15] MEDS: FENOFIBRATE 145 MG TAB PO SCH (08:49)
[2018-06-15] MEDS ORDERED: COLLAGENASE 5 GM TUBE TOP SCH (09:00)
[2018-06-15] MEDS ORDERED: HYDROCORTISONE SOD SUCCINATE 100 MG VIAL ONE (10:13)
[2018-06-15] MEDS: SODIUM BICARBONATE 8.4% 150 ML in DEXTROSE 5% 1,000 ML IV SCH ×2 (11:30→16:58)
--- NOTE | 2018-06-15 11:39 | Operative Report ---
DATE OF PROCEDURE: June 15, 2018 PREPROCEDURE DIAGNOSES: Left bilateral pneumonia and large left-sided effusion. POSTPROCEDURE DIAGNOSIS: Normal endobronchial airways. OPERATION PERFORMED: Bronchoscopy with bronchioalveolar lavage. ANESTHESIA: Conscious sedation with propofol. PROCEDURAL DETAILS: After sedating the patient with propofol, bronchoscope was advanced through the ET tube. Evelina was identified. Both lungs were identified till segmental levels. No mucopurulence was seen. BAL was done from the left lower lobe and lingula. No endobronchial lesion was seen in either airways. Both right upper lobe, lower lobe, middle lobe, and left upper lobe lingula and lower lobe were examined till segmental levels. ESTIMATED BLOOD LOSS: None. COMPLICATIONS: None. SPECIMENS: BAL will be sent for Gram-stain culture and fungus. Job#: [id number] JV
[2018-06-15] MEDS: MIDAZOLAM HCL 25 MG in SODIUM CHLORIDE 0.9% 50ML 45 ML IV PRN (12:22)
[2018-06-15] MEDS ORDERED: FUROSEMIDE INJ 10 MG/ML 4 ML VIAL IV ONE (20:30)
[2018-06-15 20:38] LABS: ANION GAP 16.7 mmol/L (8-16); CALCIUM 7.9 mg/dL (8.4-10.2); CREATININE, SERUM 3.18 mg/dL (0.57-1.11); POTASSIUM 3.7 mmol/L (3.5-5.1)
[2018-06-15] MEDS: NOREPINEPHRINE INJ 4MG/4ML 8 MG in DEXTROSE 5% 250ML 250 ML IV SCH (21:18)
[2018-06-16] VITALS (76 sets, daily range): BP systolic 94–175; BP diastolic 38–132
[2018-06-16] MEDS: SODIUM BICARBONATE 8.4% 150 ML in DEXTROSE 5% 1,000 ML IV SCH (02:20)
[2018-06-16] MEDS: HYDROCORTISONE SOD SUCCINATE 100 MG VIAL IV SCH ×2 (04:31→21:15)
[2018-06-16 04:42] LABS: BASOPHILS % 0.1 % (0.0-1.0); EOSINOPHILS % 0.1 % (0.0-6.0); HEMATOCRIT 26.7 % (34.2-44.1); HEMOGLOBIN 8.4 g/dL (12.0-16.0); LYMPHOCYTES # (AUTO) 0.4 (1.0-3.2); LYMPHOCYTES % 2.9 % (18.0-39.1); MEAN CORPUSCULAR HEMOGLOBIN 29.1 pg (28-32); MEAN CORPUSCULAR HGB CONC 31.5 g/dL (31-35); MONOCYTES # (AUTO) 0.3 (0.2-0.8); MONOCYTES % 2.2 % (4.4-11.3); NEUTROPHILS # (AUTO) 14.2 (2.1-6.9); NEUTROPHILS % 93.8 % (38.7-80.0); PLATELET COUNT 256 x10e3/uL (140-360); RED BLOOD COUNT 2.89 x10e6/uL (3.6-5.1); RED CELL DISTRIBUTION WIDTH 14.8 % (11.7-14.4)
[2018-06-16 04:55] LABS: MEAN CORPUSCULAR VOLUME 92.4 fL (81-99)
[2018-06-16 05:03] LABS: ANION GAP 15.8 mmol/L (8-16); CALCIUM 7.9 mg/dL (8.4-10.2); CREATININE, SERUM 3.19 mg/dL (0.57-1.11); MAGNESIUM 1.6 MG/DL (1.3-2.1); POTASSIUM 3.8 mmol/L (3.5-5.1)
[2018-06-16] MEDS: PIPER-TAZ 3.375 GM 50 ML IV SCH ×2 (05:47→18:00)
[2018-06-16] MEDS: FUROSEMIDE INJ 10 MG/ML 4 ML VIAL IV SCH ×3 (05:47→21:15)
[2018-06-16] MEDS: LEVOTHYROXINE SODIUM 100 MCG TAB PO SCH (05:47)
[2018-06-16] MEDS: INSULIN REGULAR, HUMAN 100 UNIT/1 ML 3ML VIAL SQ SCH ×4 (07:30→21:00)
[2018-06-16] MEDS: MIDODRINE HCL 5 MG TABLET PO SCH ×3 (07:46→16:25)
[2018-06-16] MEDS: MIDAZOLAM HCL 25 MG in SODIUM CHLORIDE 0.9% 50ML 45 ML IV PRN ×2 (08:00→21:15)
[2018-06-16] MEDS: GUAIFENESIN 600 MG TAB PO SCH ×2 (09:00→17:00)
[2018-06-16] MEDS: FENOFIBRATE 145 MG TAB PO SCH (09:00)
--- NOTE | 2018-06-16 09:04 | Diagnostic Imaging Report ---
EXAM: XR CHEST 1 VIEW DATE: 06/16/2018 5:00 AM INDICATION: Intubation COMPARISON: 06/15/2018, no report available FINDINGS: Lines and Tubes: ET tube tip above precious, right IJ catheter tip overlying SVC, NG tube coursing below GE junction, stable. Heart and Mediastinum: Enlarged. Lungs and Pleura: There is an moderate opacity at the left lung base which obscures the left hemidiaphragm which could represent alone or in combination pleural fluid, atelectasis, or pneumonia. Patchy opacity right lung base suggesting atelectasis. Bones and Soft Tissues: Axillary dissection changes right. IMPRESSION: 1. No significant interval change. Signed by: Dr. Alfonzo Taylor MD on 06/16/2018 9:01 AM
--- NOTE | 2018-06-16 10:14 | Progress Note ---
DATE: June 16, 2018 RENAL PROGRESS NOTE SUBJECTIVE: Followed for acute kidney injury on chronic kidney disease, stage 4. Creatinine appeared to remain stable today at around 3.1. Patient has more urine output. Patient is likely on the path to recovery from her acute tubular necrosis. Creatinine is at plateau. Remains intubated. Blood pressures are much better now, weaning off the Levophed. OBJECTIVE VITAL SIGNS: Blood pressure is in the 140s to 170s/60s, pulse 99. Patient is afebrile, 15 respirations. LUNGS: Decreased breath sounds at the bases bilaterally. Some crackles bilaterally. CARDIOVASCULAR: S1, S2. No rub. ABDOMEN: Soft. Positive bowel sounds. EXTREMITIES: No edema. LABS: Sodium 142, potassium 3.8, chloride 104, bicarb 26, BUN 65, creatinine is 3.19, glucose is 279, phosphorus 4, magnesium 1.6. White count 15.1, H and H 8.4 and 26.7, platelets of 256. IMPRESSION AND PLAN 1. Acute kidney injury on chronic kidney disease, stage 4. Sustained acute tubular necrosis, which is likely plateauing off and will start to improve. Patient has more urine output. We will increase the Lasix to 40 mg IV q.8 hours to allow for more diuresis. We will discontinue the bicarb drip. Since the patient is now on tube feeds, we will not give any further maintenance IV fluids to avoid further fluid overload. We will continue to monitor closely. No acute need for dialysis at this time. 2. Hypotension, weaning off Levophed. We will also decrease the hydrocortisone and wean it off. We will also decrease the midodrine and wean it off. 1. Metabolic acidosis, resolved. We will discontinue bicarb drip. 2. Sepsis. Plan would be per pulmonology and infectious disease recommendations. For now, patient is on broad-spectrum antibiotics. Patient is also on the ventilator. There is a possibility of possible chest tube placement as well. Thank you once again. Case discussed with family and nursing staff. Job#: [id number] JENNY
[2018-06-16 10:33] LABS: BAND NEUTROPHILS % (MANUAL) 5 %; LYMPHOCYTES % (MANUAL) 1 % (19-48); MONOCYTES % (MANUAL) 1 % (3.4-9.0); NEUTROPHILS % (MANUAL) 93 % (40-74); PLATELET MORPHOLOGY COMMENT NORMAL; RBC MORPHOLOGY COMMENT NORMAL
[2018-06-16 10:34] LABS: PLATELET ESTIMATE ADEQUATE
[2018-06-16 18:38] LABS: FREE THYROXINE INDEX 1.4632 (1.4-3.8); THYROID STIMULATING HORMONE 1.424 uIU/mL (0.350-4.940)
[2018-06-16] MEDS: FENTANYL CITRATE INJ 2,000 MCG in SODIUM CHLORIDE 0.9% 250ML 210 ML IV PRN (21:16)
[2018-06-16] MEDS: NOREPINEPHRINE INJ 4MG/4ML 8 MG in DEXTROSE 5% 250ML 250 ML IV SCH (21:16)
[2018-06-16] MEDS: HEPARIN SOD (PORCINE) 5,000 UNIT/ML VIAL SC SCH (21:17)
[2018-06-17] VITALS (79 sets, daily range): BP systolic 100–189; BP diastolic 36–114
[2018-06-17 05:06] LABS: BASOPHILS % 0.1 % (0.0-1.0); HEMATOCRIT 24.9 % (34.2-44.1); LYMPHOCYTES # (AUTO) 0.5 (1.0-3.2); LYMPHOCYTES % 4.9 % (18.0-39.1); MEAN CORPUSCULAR HEMOGLOBIN 29.3 pg (28-32); MEAN CORPUSCULAR HGB CONC 32.1 g/dL (31-35); MEAN CORPUSCULAR VOLUME 91.2 fL (81-99); MONOCYTES # (AUTO) 0.2 (0.2-0.8); MONOCYTES % 2.4 % (4.4-11.3); NEUTROPHILS # (AUTO) 8.8 (2.1-6.9); NEUTROPHILS % 91.6 % (38.7-80.0); PLATELET COUNT 199 x10e3/uL (140-360); RED BLOOD COUNT 2.73 x10e6/uL (3.6-5.1); RED CELL DISTRIBUTION WIDTH 14.9 % (11.7-14.4)
[2018-06-17 05:28] LABS: ANION GAP 15.2 mmol/L (8-16); CREATININE, SERUM 3.12 mg/dL (0.57-1.11); MAGNESIUM 1.7 MG/DL (1.3-2.1); POTASSIUM 3.2 mmol/L (3.5-5.1)
[2018-06-17] MEDS: FUROSEMIDE INJ 10 MG/ML 4 ML VIAL IV SCH ×3 (06:01→21:31)
[2018-06-17] MEDS: LEVOTHYROXINE SODIUM 100 MCG TAB PO SCH (06:01)
[2018-06-17] MEDS: PIPER-TAZ 3.375 GM 50 ML IV SCH ×2 (06:01→17:13)
--- NOTE | 2018-06-17 06:46 | Diagnostic Imaging Report ---
EXAM: CHEST SINGLE (PORTABLE), AP 1 view INDICATION: Intubated COMPARISON: AP view of the chest June 16, 2018 FINDINGS: LINES/TUBES: Stable right internal jugular vein central line, endotracheal tube and nasal/orogastric tube. LUNGS: Bibasilar atelectasis. PLEURA: Small right and large left pleural effusions. HEART AND MEDIASTINUM: No interval change BONES AND SOFT TISSUES: No acute findings. IMPRESSION: No interval change Signed by: Dr. Debby Healy M.D. on 06/17/2018 6:43 AM
[2018-06-17] MEDS: ALBUTEROL/IPRATROPIUM 3 ML NEB NEB PRN ×2 (07:41→19:30)
[2018-06-17] MEDS: HEPARIN SOD (PORCINE) 5,000 UNIT/ML VIAL SC SCH ×2 (08:30→21:35)
[2018-06-17] MEDS: FENOFIBRATE 145 MG TAB PO SCH (08:35)
[2018-06-17] MEDS: PANTOPRAZOLE 40 MG 10ML VIAL IV SCH (08:35)
[2018-06-17] MEDS: GUAIFENESIN 600 MG TAB PO SCH ×2 (08:35→17:00)
[2018-06-17] MEDS: HYDROCORTISONE SOD SUCCINATE 100 MG VIAL IV SCH (08:35)
[2018-06-17] MEDS: MIDODRINE HCL 5 MG TABLET PO SCH ×3 (08:35→15:23)
[2018-06-17] MEDS: MIDAZOLAM HCL 25 MG in SODIUM CHLORIDE 0.9% 50ML 45 ML IV PRN ×2 (08:36→17:28)
[2018-06-17] MEDS: INSULIN REGULAR, HUMAN 100 UNIT/1 ML 3ML VIAL SQ SCH ×4 (08:42→21:00)
[2018-06-17] MEDS ORDERED: POTASSIUM CHLORIDE 20MEQ/100ML 200 ML IV ONE ×2 (09:00→23:45)
--- NOTE | 2018-06-17 09:25 | Progress Note ---
DATE: June 17, 2018 RENAL PROGRESS NOTE SUBJECTIVE: Followed for acute kidney injury on chronic kidney disease, stage 4. Acute kidney injury is starting to improve. The patient has got excellent urine output, nonoliguric. Improving overall oxygenation. Likely, ATN is starting to improve. No current urgent indication for dialysis. Remains on the vent. Has a plan for possibility of having a chest tube placed. OBJECTIVE VITAL SIGNS: Have been noted. The patient's blood pressure is 140/50, afebrile, pulse in the high 50s to low 60s, 15 respirations. LUNGS: Minimal rales at the bases bilaterally. CARDIOVASCULAR: S1 and S2. No rub. ABDOMEN: Soft. Positive bowel sounds. Difficult to assess tenderness. EXTREMITIES: Upper extremity edema. No lower extremity edema. NEUROLOGIC: Intubated and sedated. LABS: Sodium 142, potassium 3.2, chloride 102, bicarb 29, BUN 79, creatinine 3.1. IMPRESSION AND PLAN 1. Acute kidney injury on chronic kidney disease, stage 4: Acute kidney injury is starting to improve. Sustained acute tubular necrosis is slowly starting to improve. No current need for dialysis. Will leave off intravenous fluids. Continue intravenous Lasix for now. Will slowly decrease the Lasix dose to allow for better diuresis and to prevent volume depletion. 2. Hypotension, resolved: Off Levophed. Will discontinue intravenous hydrocortisone. Will slowly wean down and wean off the midodrine as well. 3. Hypokalemia: Will replace with [address] on 20 mEq twice a day of potassium. Will add a gastrostomy tube. Job#: [id number] KORI
[2018-06-17] MEDS ORDERED: VANCOMYCIN 1GM/NS 250 ML 250 ML IV ONE (10:00)
[2018-06-17 12:42] LABS: LYMPHOCYTES % (MANUAL) 1 % (19-48); MONOCYTES % (MANUAL) 1 % (3.4-9.0); NEUTROPHILS % (MANUAL) 98 % (40-74)
[2018-06-17 12:43] LABS: ANISOCYTOSIS SLIGHT; PLATELET ESTIMATE ADEQUATE; PLATELET MORPHOLOGY COMMENT NORMAL; RBC MORPHOLOGY COMMENT NORMAL
--- NOTE | 2018-06-17 13:07 | Consultation ---
DATE OF CONSULTATION: June 17, 2018 CARDIOLOGY CONSULTATION ATTENDING PHYSICIAN: Dr. Bansal. Thank you so much for asking me to see Ms. Cohen again in consultation. Ms. Cohen is a pleasant 82-year-old woman known to me from previous evaluation. CHIEF COMPLAINT: Consultation is asked at this time for bradycardia. HISTORY OF PRESENT ILLNESS: Patient was admitted on the with recurring left pleural effusion and has had multiple diagnostic studies performed but currently on a ventilator and noted to have some bradycardia not known to be a previous problem. PAST MEDICAL HISTORY: Is complex. Previous hospitalization at [facility] in January of 2018 for the left pleural effusion. She had previously had a thoracentesis in [place], [place], on January 01 where the family believes they took out a liter of fluid. Past medical history is also significant for right breast surgery for cancer, followed by radiation treatments in 2005 with no chemotherapy. She has had a remote cholecystectomy, longstanding severe hypertension. She had bilateral hip replacements. Home medications have included metoprolol, amlodipine, furosemide. She stopped using metformin because of renal insufficiency. Current hospital medications include albuterol, Fortaz, morphine, guaifenesin, furosemide 40 mg every 8 hours, potassium 20 mEq twice a day, fenofibrate 145 mg daily, levothyroxine 150 mcg daily, midodrine 5 mg t.i.d., heparin, vancomycin. PHYSICAL EXAMINATION: GENERAL: At this time shows an elderly white woman who is sedated and on ventilator. VITALS: Blood pressure is 110/70, and pulse is 47 with prematures. HEENT: Relatively unremarkable. NECK: No jugular venous distention. No bruits. THORAX: Heart sounds S1 and S2 are equal. Faint 1/6 systolic murmur. Lungs have faint rhonchi. ABDOMEN: Protuberant. EXTREMITIES: With no cyanosis, clubbing or edema. EKG showed sinus bradycardia with a 1st-degree AV block. In January her BNP was 460. Yesterday her T4 was 4.3 with normal being 4.5 to 10.9. Today her BUN 79, creatinine 3.12. She has had numerous pleural studies done. ASSESSMENT: 1. Recurrent pleural effusion. Etiology not clear. 2. Sinus bradycardia. 3. Hypothyroidism. 4. Congestive heart failure by elevated Beta natriuretic peptide performed in January with echocardiogram in January showing aortic sclerosis, peak gradient about 22 mmHg and trace mitral regurgitation. 5. Renal insufficiency. 6. Anemia. Hemoglobin 8.0. 7. History of hypertension. 8. History of breast cancer in 2006. PLAN: Agree with current medications, diuresis and thyroid supplement. Will monitor her heart rhythm. Thank you for asking me to see her in consultation again. Job#: [id number] EV cc:MD SAI VAZQUEZ MD IRFAN JAWED, MD
[2018-06-17] MEDS ORDERED: POTASSIUM CHLORIDE 20 MEQ TAB CR PO SCH (17:00)
[2018-06-17] MEDS: POTASSIUM CHLORIDE 20MEQ/15ML UDC NG SCH (17:13)
[2018-06-17] MEDS: BALSAM PERU/CASTOR OIL 60 GM OINT...G. TP SCH (17:23)
[2018-06-17] MEDS ORDERED: DIGOXIN INJ 0.25 MG/ML 2 ML AMP IV ONE (22:00)
[2018-06-17] MEDS: NOREPINEPHRINE INJ 4MG/4ML 8 MG in DEXTROSE 5% 250ML 250 ML IV SCH (22:00)
[2018-06-17 22:28] LABS: ANION GAP 16.3 mmol/L (8-16); CALCIUM 8.3 mg/dL (8.4-10.2); CREATININE, SERUM 2.99 mg/dL (0.57-1.11); MAGNESIUM 1.8 MG/DL (1.3-2.1); POTASSIUM 3.3 mmol/L (3.5-5.1)
[2018-06-17 22:34] LABS: CREATINE KINASE MB 0.8 ng/mL (0-5.0)
--- NOTE | 2018-06-17 22:56 | Diagnostic Imaging Report ---
EXAMINATION: CHEST SINGLE (PORTABLE) INDICATION: Patient in shock COMPARISON: 06/17/2018 at 5:58 AM FINDINGS: TUBES and LINES: Endotracheal tube 4.7 cm above the precious. NG tube and right IJ central line catheter are stable. LUNGS: Lungs are not well inflated. There are bibasilar atelectasis. There is perihilar interstitial opacities, consistent with interstitial edema. PLEURA: Large left pleural effusion is stable HEART AND MEDIASTINUM: Cardiac size is mildly enlarged. There are atherosclerotic calcifications within the aorta. BONES AND SOFT TISSUES: No acute osseous lesion. Soft tissues are unremarkable. UPPER ABDOMEN: No free air under the diaphragm. IMPRESSION: Findings are stable in keeping with interstitial edema, left pleural effusion and central vascular congestion. Signed by: Dr. Nik Young M.D. on 06/17/2018 10:53 PM
[2018-06-18] VITALS (76 sets, daily range): BP systolic 80–162; BP diastolic 36–106
[2018-06-18] MEDS: MIDAZOLAM HCL 25 MG in SODIUM CHLORIDE 0.9% 50ML 45 ML IV PRN ×4 (00:03→15:32)
[2018-06-18 05:15] LABS: BASOPHILS % 0.2 % (0.0-1.0); EOSINOPHILS # (AUTO) 0.1 (0.0-0.4); EOSINOPHILS % 1.6 % (0.0-6.0); HEMATOCRIT 23.3 % (34.2-44.1); HEMOGLOBIN 7.4 g/dL (12.0-16.0); LYMPHOCYTES # (AUTO) 0.7 (1.0-3.2); MEAN CORPUSCULAR HEMOGLOBIN 29.4 pg (28-32); MEAN CORPUSCULAR HGB CONC 31.8 g/dL (31-35); MEAN CORPUSCULAR VOLUME 92.5 fL (81-99); MONOCYTES # (AUTO) 0.3 (0.2-0.8); MONOCYTES % 4.9 % (4.4-11.3); NEUTROPHILS # (AUTO) 4.4 (2.1-6.9); NEUTROPHILS % 80.8 % (38.7-80.0); PLATELET COUNT 184 x10e3/uL (140-360); RED BLOOD COUNT 2.52 x10e6/uL (3.6-5.1); RED CELL DISTRIBUTION WIDTH 15.3 % (11.7-14.4)
[2018-06-18 05:51] LABS: ANION GAP 13.6 mmol/L (8-16); CALCIUM 7.9 mg/dL (8.4-10.2); CREATININE, SERUM 2.91 mg/dL (0.57-1.11); MAGNESIUM 1.8 MG/DL (1.3-2.1); PHOSPHORUS 2.6 MG/DL (2.3-4.7); POTASSIUM 3.6 mmol/L (3.5-5.1)
[2018-06-18] MEDS: FUROSEMIDE INJ 10 MG/ML 4 ML VIAL IV SCH ×2 (05:59→14:17)
[2018-06-18] MEDS: PIPER-TAZ 3.375 GM 50 ML IV SCH ×2 (05:59→17:12)
[2018-06-18] MEDS: LEVOTHYROXINE SODIUM 100 MCG TAB PO SCH (06:00)
[2018-06-18] MEDS: MIDODRINE HCL 5 MG TABLET PO SCH ×3 (08:00→17:12)
[2018-06-18] MEDS: GUAIFENESIN 600 MG TAB PO SCH ×2 (08:22→15:54)
[2018-06-18] MEDS: INSULIN REGULAR, HUMAN 100 UNIT/1 ML 3ML VIAL SQ SCH ×4 (08:30→21:00)
[2018-06-18] MEDS: HEPARIN SOD (PORCINE) 5,000 UNIT/ML VIAL SC SCH ×2 (08:30→21:20)
[2018-06-18] MEDS: FENOFIBRATE 145 MG TAB PO SCH (08:32)
[2018-06-18] MEDS: PANTOPRAZOLE 40 MG 10ML VIAL IV SCH (08:32)
[2018-06-18] MEDS: POTASSIUM CHLORIDE 20MEQ/15ML UDC NG SCH ×2 (08:32→17:12)
[2018-06-18] MEDS ORDERED: MUPIROCIN 2% OINT 22 GM TUBE TOP SCH (09:00)
[2018-06-18] MEDS: BALSAM PERU/CASTOR OIL 60 GM OINT...G. TP SCH ×3 (09:02→17:12)
[2018-06-18] MEDS: FENTANYL CITRATE INJ 2,000 MCG in SODIUM CHLORIDE 0.9% 250ML 210 ML IV PRN (09:37)
[2018-06-18] MEDS ORDERED: LIDOCAINE HCL 2% LOCAL 20 ML VIAL ONE ×2 (12:18→13:33)
--- NOTE | 2018-06-18 16:35 | Diagnostic Imaging Report ---
EXAMINATION: CHEST XRAY POST PROCEDURE INDICATION: Chest tube placement. COMPARISON: 06/17/2018 at 5:58 AM FINDINGS: TUBES and LINES: Endotracheal tube position is obscured by overlying enteric tube. Enteric tube and right IJ central line catheter are stable. Interval placement of left basilar chest tube. LUNGS AND PLEURA: Interval increase in aeration of the left lung and decreased left sided pleural effusion, now small in size with a small amount of air. Patchy left bibasilar opacity is present. Improved perihilar and interstitial opacity. No new consolidation. HEART AND MEDIASTINUM: Cardiac size is mildly enlarged. There are atherosclerotic calcifications within the aorta. BONES AND SOFT TISSUES: No acute osseous lesion. Soft tissues are unremarkable. UPPER ABDOMEN: No free air under the diaphragm. IMPRESSION: Interval placement of left sided chest tube with decreased large left pleural effusion, now a small hydropneumothorax. Improved aeration in the left lung. Improved pulmonary interstitial edema, now mild. Other lines and tubes as above. ET tube position is likely obscured by overlying enteric tube. Consider repeat chest radiograph if clinically desired. Signed by: Dr. Didi Dubose MD on 06/18/2018 4:31 PM
--- NOTE | 2018-06-18 17:05 | Progress Note ---
DATE: June 18, 2018 RENAL PROGRESS NOTE SUBJECTIVE: Followed for acute kidney injury on chronic kidney disease stage 4. Kidney function continues to improve. Patient has excellent urine output. Chest x-ray is also better. Nonoliguric now. Patient is on the vent. However, a chest tube has been placed. Slowly will be weaning off the vent. OBJECTIVE VITAL SIGNS: Blood pressure high 90s to low 100s over 40s. Pulse is in the 40s to 50s. Afebrile. LUNGS: Mostly clear to auscultation bilaterally. CARDIOVASCULAR: S1 and S2. No rub. ABDOMEN: Soft, nontender. EXTREMITIES: No edema. LABS: Sodium 145, potassium 3.7, chloride 105, bicarb 30, BUN is 86, creatinine is 2.91. Calcium is 7.9, phosphorus 2.6, and magnesium is 1.8. IMPRESSION AND PLAN 1. Acute kidney injury on chronic kidney disease stage 4. Kidney function continues to improve. Off IV fluids now. Will decrease Lasix to 40 mg IV daily and will discontinue Lasix soon and maybe switch to oral Lasix then. I will repeat labs in the morning. 2. Hypertension/hypotension. Continue midodrine. Patient is off Levophed. 3. Hypokalemia. Continue potassium chloride 20 mEq b.i.d. for now. 4. Pneumonia. Plan would be as per primary MD recommendation. Will continue to watch closely and make further recommendations. Chest tube has already been placed. Thank you once again. Job#: [id number] IAM
[2018-06-18] MEDS: VANCOMYCIN 250MG/5ML ORAL SOLN PO SCH (17:12)
[2018-06-18] MEDS ORDERED: IRON SUCROSE 100 MG in SODIUM CHLORIDE 0.9% 100 ML 100 ML IV ONE (20:30)
[2018-06-18] MEDS: NOREPINEPHRINE INJ 4MG/4ML 8 MG in DEXTROSE 5% 250ML 250 ML IV SCH (22:00)
[2018-06-19] VITALS (67 sets, daily range): BP systolic 79–166; BP diastolic 29–81
[2018-06-19 04:41] LABS: BASOPHILS % 0.6 % (0.0-1.0); EOSINOPHILS # (AUTO) 0.7 (0.0-0.4); EOSINOPHILS % 10.9 % (0.0-6.0); HEMATOCRIT 25.7 % (34.2-44.1); MEAN CORPUSCULAR HEMOGLOBIN 29.1 pg (28-32); MEAN CORPUSCULAR HGB CONC 31.1 g/dL (31-35); MEAN CORPUSCULAR VOLUME 93.5 fL (81-99); MONOCYTES # (AUTO) 0.4 (0.2-0.8); MONOCYTES % 5.8 % (4.4-11.3); NEUTROPHILS # (AUTO) 4.1 (2.1-6.9); NEUTROPHILS % 65.4 % (38.7-80.0); PLATELET COUNT 173 x10e3/uL (140-360); RED BLOOD COUNT 2.75 x10e6/uL (3.6-5.1); RED CELL DISTRIBUTION WIDTH 15.2 % (11.7-14.4)
[2018-06-19 04:58] LABS: ANION GAP 12.7 mmol/L (8-16); CALCIUM 8.1 mg/dL (8.4-10.2); CREATININE, SERUM 2.79 mg/dL (0.57-1.11); MAGNESIUM 1.8 MG/DL (1.3-2.1); PHOSPHORUS 2.6 MG/DL (2.3-4.7); POTASSIUM 3.7 mmol/L (3.5-5.1)
[2018-06-19] MEDS: PIPER-TAZ 3.375 GM 50 ML IV SCH ×2 (05:47→18:05)
[2018-06-19] MEDS: LEVOTHYROXINE SODIUM 100 MCG TAB PO SCH (05:47)
[2018-06-19] MEDS: VANCOMYCIN 250MG/5ML ORAL SOLN PO SCH ×5 (05:47→23:48)
--- NOTE | 2018-06-19 06:50 | Diagnostic Imaging Report ---
EXAMINATION: CHEST SINGLE (PORTABLE) INDICATION: Pleural effusion COMPARISON: 06/18/2018 FINDINGS: TUBES and LINES: Right IJ central line catheter, endotracheal and NG tubes are stable. Left chest tube overlying the left lung base. LUNGS: Lungs are not well inflated. There are bibasilar atelectasis. Interval increase in left lower lobe airspace disease compatible with contusion versus pneumonia PLEURA: Stable left pleural effusion HEART AND MEDIASTINUM: The cardiomediastinal silhouette is unremarkable. BONES AND SOFT TISSUES: No acute osseous lesion. Soft tissues are unremarkable. UPPER ABDOMEN: No free air under the diaphragm. There are cholecystectomy clips. IMPRESSION: 1. Findings are compatible with worsening bibasilar atelectasis and left lower lobe airspace disease suspicious for contusion or infection 2. Stable left pleural effusion Signed by: Dr. Nik Young M.D. on 06/19/2018 6:47 AM
[2018-06-19] MEDS: INSULIN REGULAR, HUMAN 100 UNIT/1 ML 3ML VIAL SQ SCH ×4 (07:30→21:00)
[2018-06-19] MEDS: MIDODRINE HCL 5 MG TABLET PO SCH ×2 (07:50→12:46)
[2018-06-19] MEDS: BALSAM PERU/CASTOR OIL 60 GM OINT...G. TP SCH ×3 (07:50→18:05)
[2018-06-19] MEDS ORDERED: FUROSEMIDE INJ 10 MG/ML 4 ML VIAL IV SCH (09:00)
[2018-06-19] MEDS ORDERED: IRON SUCROSE 100 MG in SODIUM CHLORIDE 0.9% 100 ML 100 ML IV ONE (09:00)
[2018-06-19 09:27] LABS: RBC,BODY FLUID 1685 cells/uL; WBC,BODY FLUID 18 cells/uL
[2018-06-19 09:28] LABS: BODY FLUID APPEARANCE SL.CLOUDY; BODY FLUID COLOR YELLOW; BODY FLUID TYPE PLEURAL
[2018-06-19] MEDS: PANTOPRAZOLE 40 MG 10ML VIAL IV SCH (09:45)
[2018-06-19] MEDS: POTASSIUM CHLORIDE 20MEQ/15ML UDC NG SCH ×2 (09:45→18:05)
[2018-06-19] MEDS: GUAIFENESIN 600 MG TAB PO SCH ×2 (09:45→18:05)
[2018-06-19] MEDS: FENOFIBRATE 145 MG TAB PO SCH (09:45)
[2018-06-19] MEDS: HEPARIN SOD (PORCINE) 5,000 UNIT/ML VIAL SC SCH ×2 (09:46→21:25)
[2018-06-19 11:36] LABS: ABG PCO2 45 mmHg (41-51); ABG PH 7.47 (7.31-7.41); ABG PO2 137 mmHg (80-105)
[2018-06-19 11:37] LABS: ABG HCO3 33 mmol/L (23-28)
[2018-06-19 11:40] LABS: LYMPHOCYTES,BODY FLUID 30 %; MONO/MACROPHG,BODY FLUID 14 %; NEUTROPHILS,BODY FLUID 56 %
[2018-06-19] MEDS: MIDAZOLAM HCL 25 MG in SODIUM CHLORIDE 0.9% 50ML 45 ML IV PRN ×2 (12:51→18:03)
--- NOTE | 2018-06-19 15:21 | Diagnostic Imaging Report ---
EXAMINATION: CT scan of the chest without contrast. TECHNIQUE: Spiral CT images of the chest were performed from the lung apices to the level of the adrenal glands. No intravenous contrast was administered per referring physician request. Coronal and sagittal reformatted images were obtained. COMPARISON: CT chest without contrast 06/13/2018 CLINICAL HISTORY:Chest tube, effusion DISCUSSION: ABSENCE OF INTRAVENOUS CONTRAST DECREASES SENSITIVITY FOR DETECTION OF FOCAL LESIONS AND VASCULAR PATHOLOGY. LINES/TUBES: Interval placement of a chest tube through the anterolateral sixth intercostal space on the left. The tube terminates in the posterior medial pleural space, just above the hemidiaphragm. Right internal jugular central venous catheter is also unchanged in position. Endotracheal tube is unchanged in position, as is partially visualized enteric tube. LUNGS AND AIRWAYS: Improved aeration of the lingula and left lower lobe status post chest tube placement. Round consolidation with architectural distortion persists in the lingula. Multiple segmental bronchial filling defects with adjacent consolidation in the left lower lobe. Right lower lobe consolidative opacity has also improved. No new consolidations. Trachea and mainstem bronchi are patent. Endotracheal tube is unchanged in position. Stable left upper lobe calcified granuloma. PLEURA: Small hydropneumothorax status post left chest tube placement. Trace right pleural effusion. HEART AND MEDIASTINUM: The thyroid gland is normal. No pericardial effusion. Volume loss with mediastinal shift to the left. Mediastinal lymph nodes are increased in number but not enlarged by CT criteria. Enteric tube terminates within the stomach. The tip is off the current scan field. Atherosclerotic calcification of the abdominal aorta and great vessel origins. LYMPH NODES: As above. ABDOMEN: Visualized portions of the liver and spleen show no gross abnormalities. Cholecystectomy clips. BONES AND SOFT TISSUES: No focal soft tissue abnormalities. Surgical clips in the right axilla and along the right lateral chest wall. Multilevel degenerative disc disease of the thoracic spine. IMPRESSION: Interval placement of a left-sided chest tube, positioned as above, with significant interval decrease in left pleural effusion. Small residual hydropneumothorax. Improved aeration of the lingula and left lower lobe. Round consolidation with adjacent architectural distortion in the lingula is again noted and felt to represent rounded atelectasis. Persistent mucous plugging and postobstructive pneumonia in the basal segments of the left lower lobe. Improved aspiration pneumonitis or pneumonia of the right lower lobe. Trace right pleural effusion persists. Unchanged position of endotracheal tube, right internal jugular central venous catheter, and enteric tube. Signed by: Dr. Alex Arora M.D. on 06/19/2018 3:18 PM
[2018-06-19] MEDS: FENTANYL CITRATE INJ 2,000 MCG in SODIUM CHLORIDE 0.9% 250ML 210 ML IV PRN (15:23)
--- NOTE | 2018-06-19 17:50 | Progress Note ---
DATE: June 19, 2018 RENAL PROGRESS NOTE SUBJECTIVE: Followed for acute kidney injury and chronic kidney disease, stage 4. Kidney function continues to improve. Creatinine is down to 2.79. BUN is higher at 93. The patient remains on the ventilator. However, he is nonoliguric. He is also having C. diff. positive colitis. OBJECTIVE VITAL SIGNS: Noted. Blood pressures are doing quite well, 125/53, pulse 75, afebrile. LUNGS: Mostly clear to auscultation. Bilateral minimal crackles at the bases. CARDIOVASCULAR: S1 and S2, no rubs. ABDOMEN: Soft and nontender. Positive bowel sounds. EXTREMITIES: No edema. LABORATORY DATA: Sodium 140, potassium 3.7, BUN 93, creatinine 2.79. IMPRESSION AND PLAN 1. Acute kidney injury on chronic kidney disease stage 4. Will discontinue IV Lasix to avoid volume depletion. The patient has already had chest tube drainage of at least 2 liters if not more, and also is having diarrhea now. CT chest and chest x-ray are both improving. 2. Hypertension/hypotension. Hypotension has resolved. Will make Midodrine 5 mg daily and if blood pressure stays within normal range tomorrow will discontinue the Midodrine. 3. Hypernatremia. Since the patient is getting tube feeds, will increase free water flushes to 150 mL q.4 h. to avoid free water deficit. 4. Pneumonia/consolidation. Plan would be as per pulmonology recommendation. Job#: [id number]
[2018-06-20] VITALS (50 sets, daily range): BP systolic 87–186; BP diastolic 35–110
[2018-06-20] MEDS: MIDAZOLAM HCL 25 MG in SODIUM CHLORIDE 0.9% 50ML 45 ML IV PRN ×2 (00:05→21:48)
[2018-06-20 04:35] LABS: BASOPHILS % 0.5 % (0.0-1.0); EOSINOPHILS % 12.4 % (0.0-6.0); HEMATOCRIT 25.1 % (34.2-44.1); HEMOGLOBIN 7.9 g/dL (12.0-16.0); LYMPHOCYTES # (AUTO) 0.9 (1.0-3.2); MEAN CORPUSCULAR HEMOGLOBIN 29.6 pg (28-32); MEAN CORPUSCULAR HGB CONC 31.5 g/dL (31-35); MONOCYTES # (AUTO) 0.4 (0.2-0.8); MONOCYTES % 4.9 % (4.4-11.3); NEUTROPHILS # (AUTO) 5.9 (2.1-6.9); NEUTROPHILS % 69.9 % (38.7-80.0); PLATELET COUNT 168 x10e3/uL (140-360); RED BLOOD COUNT 2.67 x10e6/uL (3.6-5.1); RED CELL DISTRIBUTION WIDTH 15.3 % (11.7-14.4)
[2018-06-20 04:46] LABS: INR 1.23
[2018-06-20 04:51] LABS: PROTHROMBIN TIME 16.6 seconds (11.9-14.5)
[2018-06-20 04:54] LABS: ALBUMIN 1.7 g/dL (3.5-5.0); ALBUMIN/GLOBULIN RATIO 0.5 (0.8-2.0); ANION GAP 14.8 mmol/L (8-16); CALCIUM 8.4 mg/dL (8.4-10.2); CREATININE, SERUM 2.47 mg/dL (0.57-1.11); POTASSIUM 3.8 mmol/L (3.5-5.1)
[2018-06-20 05:07] LABS: MAGNESIUM 1.7 MG/DL (1.3-2.1)
[2018-06-20] MEDS: PIPER-TAZ 3.375 GM 50 ML IV SCH ×2 (05:59→18:20)
[2018-06-20] MEDS: LEVOTHYROXINE SODIUM 100 MCG TAB PO SCH (05:59)
[2018-06-20] MEDS: VANCOMYCIN 250MG/5ML ORAL SOLN PO SCH ×3 (05:59→18:20)
--- NOTE | 2018-06-20 06:35 | Diagnostic Imaging Report ---
EXAMINATION: CHEST SINGLE (PORTABLE) INDICATION: Chest tube placement. COMPARISON: 06/19/2018 FINDINGS: TUBES and LINES: Right IJ central line catheter, endotracheal and NG tubes are stable. Left chest tube overlying the left lung base. LUNGS: Lungs are not well inflated. There are bibasilar atelectasis. Stable left lower lobe airspace disease compatible with contusion versus pneumonia PLEURA: Stable left pleural effusion HEART AND MEDIASTINUM: The cardiomediastinal silhouette is unremarkable. BONES AND SOFT TISSUES: No acute osseous lesion. Soft tissues are unremarkable. UPPER ABDOMEN: No free air under the diaphragm. There are cholecystectomy clips. IMPRESSION: 1. Findings are compatible with stable bibasilar atelectasis and left lower lobe airspace disease suspicious for contusion or infection 2. Stable left pleural effusion despite left lung base chest tube Signed by: Dr. Nik Young M.D. on 06/20/2018 6:32 AM
[2018-06-20] MEDS ORDERED: EPOETIN ALFA 10000 UNIT/ML VIAL SC ONE (07:00)
[2018-06-20] MEDS: INSULIN REGULAR, HUMAN 100 UNIT/1 ML 3ML VIAL SQ SCH ×4 (07:30→21:00)
[2018-06-20 08:22] LABS: ABG PCO2 51 mmHg (41-51); ABG PH 7.44 (7.31-7.41); ABG PO2 107 mmHg (80-105)
[2018-06-20 08:23] LABS: ABG HCO3 34 mmol/L (23-28)
[2018-06-20] MEDS ORDERED: MUPIROCIN 2% OINT 22 GM TUBE TOP SCH (09:00)
[2018-06-20] MEDS ORDERED: MIDODRINE HCL 5 MG TABLET PO SCH (09:00)
[2018-06-20] MEDS ORDERED: POTASSIUM PHOSPHATE 20 MM in SODIUM CHLORIDE 0.9% 250ML 250 ML IV SCH ×4 (09:15)
--- NOTE | 2018-06-20 09:54 | Progress Note ---
DATE: June 20, 2018 RENAL PROGRESS NOTE SUBJECTIVE: Followed for acute kidney injury on chronic kidney disease, stage 4. The patient's kidney function creatinine continues to improve. BUN is slightly high; however, that could be from slight volume depletion. The patient is stable from a renal standpoint, nonoliguric. Remains intubated; however, chest x-ray has improved. The patient has been taken off her IV Lasix. The patient is also having diarrhea. She is on tube feeds. Potassium has been normal today at 3.8. OBJECTIVE VITAL SIGNS: Noted. Blood pressure 155/64, 97 pulse, afebrile. LUNGS: Minimal rales at the bases bilaterally. CARDIOVASCULAR: S1 and S2, no rub. ABDOMEN: Soft. Positive bowel sounds. EXTREMITIES: No edema. LABS: Potassium 3.8, BUN 99, creatinine 2.47, phosphorus 2.0, magnesium 1.7. IMPRESSION AND PLAN 1. Acute kidney injury on chronic kidney disease, stage 4. Improving kidney function. Improving from acute tubular necrosis. Off all pressors. I have discontinued the midodrine as well. The patient's prognosis is holding quite steady. I will leave off IV fluids to avoid fluid overload. 2. Hypertension. Blood pressure is stable. Discontinue midodrine. 3. Anemia of chronic disease. Plan will be as per primary or hematology recommendations. 4. Fluid overload has largely resolved. Will discontinue IV Lasix. 5. Hypokalemia, resolved. Will discontinue oral potassium supplements. 6. Hypophosphatemia. Replace with K-Phos IV. Job#: [id number]
[2018-06-20] MEDS: PANTOPRAZOLE 40 MG 10ML VIAL IV SCH (10:01)
[2018-06-20] MEDS: FENOFIBRATE 145 MG TAB PO SCH (10:01)
[2018-06-20] MEDS: GUAIFENESIN 600 MG TAB PO SCH ×2 (10:01→18:20)
[2018-06-20] MEDS: BALSAM PERU/CASTOR OIL 60 GM OINT...G. TP SCH ×3 (10:02→17:31)
[2018-06-20] MEDS: HEPARIN SOD (PORCINE) 5,000 UNIT/ML VIAL SC SCH ×2 (10:02→21:44)
[2018-06-20] MEDS ORDERED: ACETAMINOPHEN 1000 MG/100 ML IV ONE (10:10)
[2018-06-20] MEDS: ONDANSETRON HCL INJ 2 MG/ML VIAL IV PRN (10:48)
--- NOTE | 2018-06-20 11:36 | Diagnostic Imaging Report ---
EXAMINATION: CHEST SINGLE (PORTABLE) INDICATION: Vomiting on vent COMPARISON: Chest radiograph 06/20/2018 FINDINGS: TUBES and LINES: Right IJ central line catheter and NG tubes are stable. ET Tube is obscured by overlying enteric tube but likely terminates in the upper trachea. Left chest tube overlying the left lung base. LUNGS: Lungs are not well inflated. There are bibasilar atelectasis. Stable left lower lobe airspace opacities. PLEURA: Stable left pleural effusion HEART AND MEDIASTINUM: The cardiomediastinal silhouette is unchanged. BONES AND SOFT TISSUES: No acute osseous lesion. Soft tissues are unremarkable. UPPER ABDOMEN: No free air under the diaphragm. There are cholecystectomy clips. IMPRESSION: Findings are compatible with stable bibasilar atelectasis and left lower lobe consolidation suspicious for contusion or pneumonia. Left chest tube with persistent small left pleural effusion. Signed by: Dr. Didi Dubose MD on 06/20/2018 11:33 AM
[2018-06-20] MEDS ORDERED: SODIUM CHLORIDE 0.9% 250ML 250 ML ONE (12:21)
--- NOTE | 2018-06-20 15:18 | Diagnostic Imaging Report ---
Exam: KUB (two views) Clinical History: Vomiting. Comparison: KUB 06/14/2018 and chest radiograph 06/20/18. Findings: Exam limited by portable technique, motion, and rotation. No specific evidence of bowel obstruction or free air. Aortic atherosclerotic calcifications. Degenerative changes of the visualized spine. Status post bilateral total hip arthroplasty, suboptimally evaluated due to motion. Enteric tube terminates in the stomach. Please refer to same day chest radiograph for details of intrathoracic findings including left lower lung opacity and chest tube. Impression: Limited study with no specific evidence of bowel obstruction. Please refer to same day chest radiograph for details of intrathoracic findings including left lower lung opacity and chest tube. Signed by: Dr. Didi Dubose MD on 06/20/2018 3:14 PM
[2018-06-21] VITALS (69 sets, daily range): BP systolic 115–191; BP diastolic 41–118
[2018-06-21] MEDS: VANCOMYCIN 250MG/5ML ORAL SOLN PO SCH ×4 (00:15→17:29)
[2018-06-21 04:27] LABS: BASOPHILS % 0.4 % (0.0-1.0); EOSINOPHILS # (AUTO) 0.8 (0.0-0.4); EOSINOPHILS % 10.6 % (0.0-6.0); HEMATOCRIT 24.3 % (34.2-44.1); HEMOGLOBIN 7.6 g/dL (12.0-16.0); LYMPHOCYTES # (AUTO) 0.8 (1.0-3.2); LYMPHOCYTES % 11.1 % (18.0-39.1); MEAN CORPUSCULAR HEMOGLOBIN 29.5 pg (28-32); MEAN CORPUSCULAR HGB CONC 31.3 g/dL (31-35); MEAN CORPUSCULAR VOLUME 94.2 fL (81-99); MONOCYTES # (AUTO) 0.4 (0.2-0.8); MONOCYTES % 5.8 % (4.4-11.3); NEUTROPHILS # (AUTO) 5.4 (2.1-6.9); NEUTROPHILS % 70.5 % (38.7-80.0); PLATELET COUNT 160 x10e3/uL (140-360); RED BLOOD COUNT 2.58 x10e6/uL (3.6-5.1); RED CELL DISTRIBUTION WIDTH 15.5 % (11.7-14.4)
[2018-06-21 04:47] LABS: ANION GAP 15.8 mmol/L (8-16); CALCIUM 8.5 mg/dL (8.4-10.2); CREATININE, SERUM 2.3 mg/dL (0.57-1.11); MAGNESIUM 1.8 MG/DL (1.3-2.1); PHOSPHORUS 2.9 MG/DL (2.3-4.7); POTASSIUM 3.8 mmol/L (3.5-5.1)
[2018-06-21] MEDS: LEVOTHYROXINE SODIUM 100 MCG TAB PO SCH (06:00)
[2018-06-21] MEDS: PIPER-TAZ 3.375 GM 50 ML IV SCH ×2 (06:00→17:29)
--- NOTE | 2018-06-21 06:49 | Diagnostic Imaging Report ---
EXAMINATION: CHEST SINGLE (PORTABLE) INDICATION: Pleural effusion COMPARISON: 06/20/2018 FINDINGS: TUBES and LINES: Right IJ central line catheter, endotracheal and NG tubes are stable. Left chest tube overlying the left lung base. LUNGS: Lungs are not well inflated. There are bibasilar atelectasis. Stable left lower lobe airspace disease compatible with contusion versus infection PLEURA: Stable left pleural effusion HEART AND MEDIASTINUM: The cardiomediastinal silhouette is unremarkable. BONES AND SOFT TISSUES: No acute osseous lesion. Soft tissues are unremarkable. UPPER ABDOMEN: No free air under the diaphragm. There are cholecystectomy clips. IMPRESSION: 1. Findings are compatible with stable bibasilar atelectasis and left lower lobe airspace disease suspicious for contusion or infection 2. Stable left pleural effusion despite left lung base chest tube Signed by: Dr. Nik Young M.D. on 06/21/2018 6:46 AM
[2018-06-21] MEDS: ONDANSETRON HCL INJ 2 MG/ML VIAL IV PRN ×2 (06:58→14:19)
[2018-06-21] MEDS ORDERED: SODIUM CHLORIDE 0.9% 250ML 250 ML IV PRN (07:45)
[2018-06-21] MEDS: GUAIFENESIN 600 MG TAB PO SCH (08:34)
[2018-06-21 08:45] LABS: ABG PH 7.42 (7.31-7.41)
[2018-06-21 08:46] LABS: ABG HCO3 33 mmol/L (23-28); ABG PCO2 51 mmHg (41-51); ABG PO2 111 mmHg (80-105)
[2018-06-21] MEDS: FENOFIBRATE 145 MG TAB PO SCH (09:15)
[2018-06-21] MEDS: PANTOPRAZOLE 40 MG 10ML VIAL IV SCH (09:15)
[2018-06-21] MEDS: BALSAM PERU/CASTOR OIL 60 GM OINT...G. TP SCH ×3 (09:16→18:49)
[2018-06-21] MEDS: HEPARIN SOD (PORCINE) 5,000 UNIT/ML VIAL SC SCH ×2 (09:17→21:13)
[2018-06-21] MEDS: INSULIN REGULAR, HUMAN 100 UNIT/1 ML 3ML VIAL SQ SCH ×4 (09:18→21:00)
--- NOTE | 2018-06-21 11:09 | Progress Note ---
DATE: June 21, 2018 RENAL PROGRESS NOTE SUBJECTIVE: Followed for acute kidney injury on chronic kidney disease, stage 4. Kidney function continues to improve. Creatinine is down to 2.3, BUN 89, sodium is 149, potassium 3.8, no nausea and no vomiting. No shortness of breath. Patient has been extubated now and she is doing well. OBJECTIVE VITAL SIGNS: Noted. Blood pressure is 140/61, respirations 12, and afebrile. LUNGS: Minimal rales at the bases bilaterally. CARDIOVASCULAR: S1 and S2, no rub. ABDOMEN: Soft. Nontender. EXTREMITIES: No edema. LABS: Sodium 149, BUN 89, creatinine 2.3. IMPRESSION AND PLAN 1. Acute kidney injury on chronic kidney disease, stage 4. Patient is approaching her baseline. I have taken her off any Lasix IV. Kidney function continues to improve. We will likely transition her to oral Lasix once her diarrhea is resolved. 2. Hypertension. Blood pressure is stable, off midodrine now. 3. Hypernatremia. Was getting free water flushes while she was on the tube feeding when she was on the ventilator, now she is off tube feeding. We will consider adding D5 water if sodium continues to rise however her sodium is stable as compared to yesterday. 4. Fluid overload, largely resolved. We will resume oral Lasix when sodium trends downward. Patient is on her old diet. For now, we will keep off IV Lasix. Thank you once again. Job#: [id number] CHRISTOPHER
[2018-06-21] MEDS: ACETAMINOPHEN 325 MG TAB PO PRN (14:19)
[2018-06-21] MEDS: METOPROLOL TARTRATE INJ 1 MG/ML VIAL IV PRN (21:12)
[2018-06-22] VITALS (43 sets, daily range): BP systolic 100–198; BP diastolic 57–108
[2018-06-22] MEDS: VANCOMYCIN 250MG/5ML ORAL SOLN PO SCH ×4 (00:19→18:00)
[2018-06-22] MEDS: ONDANSETRON HCL INJ 2 MG/ML VIAL IV PRN ×3 (02:01→14:20)
[2018-06-22] MEDS: ALBUTEROL/IPRATROPIUM 3 ML NEB NEB PRN ×2 (03:15→07:30)
[2018-06-22] MEDS: METOPROLOL TARTRATE INJ 1 MG/ML VIAL IV PRN ×3 (03:30→19:55)
[2018-06-22 04:24] LABS: BASOPHILS # (AUTO) 0.1 (0.0-0.1); BASOPHILS % 0.5 % (0.0-1.0); EOSINOPHILS # (AUTO) 0.9 (0.0-0.4); EOSINOPHILS % 7.7 % (0.0-6.0); HEMATOCRIT 33.4 % (34.2-44.1); HEMOGLOBIN 10.4 g/dL (12.0-16.0); LYMPHOCYTES # (AUTO) 0.7 (1.0-3.2); LYMPHOCYTES % 6.3 % (18.0-39.1); MEAN CORPUSCULAR HEMOGLOBIN 29.9 pg (28-32); MEAN CORPUSCULAR HGB CONC 31.1 g/dL (31-35); MONOCYTES # (AUTO) 0.7 (0.2-0.8); MONOCYTES % 6.2 % (4.4-11.3); NEUTROPHILS # (AUTO) 8.6 (2.1-6.9); NEUTROPHILS % 77.9 % (38.7-80.0); PLATELET COUNT 203 x10e3/uL (140-360); RED BLOOD COUNT 3.48 x10e6/uL (3.6-5.1); RED CELL DISTRIBUTION WIDTH 16.3 % (11.7-14.4)
[2018-06-22 04:45] LABS: ANION GAP 16.7 mmol/L (8-16); CALCIUM 9.2 mg/dL (8.4-10.2); CREATININE, SERUM 2.01 mg/dL (0.57-1.11); MAGNESIUM 1.9 MG/DL (1.3-2.1); POTASSIUM 3.7 mmol/L (3.5-5.1)
[2018-06-22] MEDS: LEVOTHYROXINE SODIUM 100 MCG TAB PO SCH (06:00)
[2018-06-22] MEDS: INSULIN REGULAR, HUMAN 100 UNIT/1 ML 3ML VIAL SQ SCH ×4 (07:30→21:00)
--- NOTE | 2018-06-22 07:31 | Diagnostic Imaging Report ---
EXAMINATION: CHEST SINGLE (PORTABLE) INDICATION: Shortness of breath COMPARISON: Chest x-ray 06/21/2018 FINDINGS: AP view TUBES and LINES: Right IJ central line, nasogastric tube and left basilar chest tube remain stable. LUNGS: Lungs are well inflated. There are bibasilar atelectasis. Increasing airspace opacities. Stable left lower lobe airspace disease compatible with contusion versus infection PLEURA: Moderate left pleural effusion. HEART AND MEDIASTINUM: The cardiomediastinal silhouette is unremarkable. BONES AND SOFT TISSUES: No acute osseous lesion. Soft tissues are unremarkable. UPPER ABDOMEN: No free air under the diaphragm. IMPRESSION: 1. Interval removal of endotracheal tube. 2. Increasing airspace opacity in the lung bases, likely increasing pulmonary edema. 3. Unchanged left lower lobe airspace opacity, likely aspiration or contusion. 4. Unchanged left pleural effusion. Signed by: Dr. Hector Sanchez M.D. on 06/22/2018 7:28 AM
[2018-06-22] MEDS: FENOFIBRATE 145 MG TAB PO SCH (09:00)
[2018-06-22] MEDS: PANTOPRAZOLE 40 MG 10ML VIAL IV SCH (09:16)
[2018-06-22] MEDS: BALSAM PERU/CASTOR OIL 60 GM OINT...G. TP SCH ×3 (09:17→17:54)
[2018-06-22] MEDS: HEPARIN SOD (PORCINE) 5,000 UNIT/ML VIAL SC SCH ×2 (09:35→21:05)
[2018-06-22] MEDS ORDERED: CARVEDILOL 12.5 MG TAB NG SCH (13:15)
[2018-06-22] MEDS ORDERED: METOLAZONE 5 MG TAB NG NR (13:15)
--- NOTE | 2018-06-22 13:52 | Progress Note ---
DATE: June 22, 2018 RENAL PROGRESS NOTE SUBJECTIVE: Followed for acute kidney injury on chronic kidney disease stage 4. Patient's kidney function continues to improve. The patient has been extubated. Still continues to have diarrhea as well as some NG output. The patient is not in overt respiratory distress; however, chest x-ray does indicate some early onset pulmonary edema. OBJECTIVE VITAL SIGNS: Noted. Blood pressure has been running high. Last blood pressure is 180s/70s, pulse 96, afebrile. LUNGS: Have rales at the bases bilaterally. CARDIOVASCULAR: S1, S2. No rub. ABDOMEN: Soft, nontender. Positive bowel sounds. EXTREMITIES: No evidence of edema of her lower extremities. LABORATORY WORKUP: Sodium today is 151, potassium 3.7, chloride 110, carb 28, BUN 71, creatinine 2.01, glucose is 122. H and H 10.4 and 33.4. IMPRESSION AND PLAN 1. Acute kidney injury on chronic kidney disease stage 4. Patient's kidney function continues to improve. Patient's creatinine is down to her baseline or slightly better. There may be a component of some fluid overload. I will resume diuretics on her IV since she is not able to take oral medicines for now. We will continue to watch I's and O's closely. Since the patient is currently not able to take anything by mouth, we will place her on some maintenance IV fluids. We will place her on D5 water at 50 mL per hour. We will make further recommendations. 2. Hypertension. Recommend to start her on blood pressure medications. Patient is currently getting metoprolol 2.5 mg IV q.6 hours p.r.n. If able to, recommend to start carvedilol via the nasogastric tube at 6.25 mg q.12 hours. 3. Anemia of chronic disease, stable. Continue to monitor. 4. Hypernatremia. Suspect there is a component of free water loss since the patient is currently n.p.o. and also having NG output as well as diarrhea. We will place on D5 water at 50 mL per hour. However, patient is getting on the fluid overload side also, and there is a component of hypernatremia related to fluid overload. We will give 1 dose of Diuril or chlorothiazide to allow for a natriuresis and then we will place the patient on maintenance furosemide 40 mg IV daily as well. Recheck labs again in the morning. Job#: [id number] LPA
[2018-06-22] MEDS: PIPER-TAZ 3.375 GM 50 ML IV SCH ×2 (13:56→21:06)
[2018-06-22] MEDS: DEXTROSE 5% 1,000 ML IV SCH (13:56)
[2018-06-22] MEDS: POTASSIUM CHLORIDE 20MEQ/15ML UDC NG SCH ×2 (13:56→17:00)
[2018-06-22] MEDS: FUROSEMIDE INJ 10 MG/ML 4 ML VIAL IV SCH (13:56)
[2018-06-22] MEDS ORDERED: HYDRALAZINE HCL 20 MG/ML VIAL IV PRN ×2 (16:45→18:15)
[2018-06-22] MEDS ORDERED: ADENOSINE 6 MG/2 ML VIAL IV NR (19:30)
[2018-06-22] MEDS ORDERED: DIGOXIN INJ 0.25 MG/ML 2 ML AMP IV ONE (22:00)
[2018-06-22] MEDS: LORAZEPAM INJ 2 MG/ML VIAL IV PRN (22:20)
[2018-06-23] VITALS (78 sets, daily range): BP systolic 90–193; BP diastolic 45–119
[2018-06-23] MEDS: METOPROLOL TARTRATE INJ 1 MG/ML VIAL IV PRN (01:49)
[2018-06-23 04:04] LABS: BASOPHILS # (AUTO) 0.1 (0.0-0.1); BASOPHILS % 0.6 % (0.0-1.0); EOSINOPHILS # (AUTO) 0.7 (0.0-0.4); EOSINOPHILS % 6.6 % (0.0-6.0); HEMATOCRIT 32.5 % (34.2-44.1); HEMOGLOBIN 10.3 g/dL (12.0-16.0); LYMPHOCYTES # (AUTO) 0.7 (1.0-3.2); LYMPHOCYTES % 6.4 % (18.0-39.1); MEAN CORPUSCULAR HEMOGLOBIN 30.2 pg (28-32); MEAN CORPUSCULAR HGB CONC 31.7 g/dL (31-35); MEAN CORPUSCULAR VOLUME 95.3 fL (81-99); MONOCYTES # (AUTO) 0.8 (0.2-0.8); MONOCYTES % 7.3 % (4.4-11.3); NEUTROPHILS # (AUTO) 8.1 (2.1-6.9); NEUTROPHILS % 78.1 % (38.7-80.0); PLATELET COUNT 187 x10e3/uL (140-360); RED BLOOD COUNT 3.41 x10e6/uL (3.6-5.1); RED CELL DISTRIBUTION WIDTH 16.1 % (11.7-14.4)
[2018-06-23] MEDS: LORAZEPAM INJ 2 MG/ML VIAL IV PRN (04:06)
[2018-06-23 04:28] LABS: ANION GAP 16.7 mmol/L (8-16); CALCIUM 9.4 mg/dL (8.4-10.2); CREATININE, SERUM 1.85 mg/dL (0.57-1.11); MAGNESIUM 1.8 MG/DL (1.3-2.1); PHOSPHORUS 2.2 MG/DL (2.3-4.7); POTASSIUM 3.7 mmol/L (3.5-5.1)
[2018-06-23] MEDS: LEVOTHYROXINE SODIUM 100 MCG TAB PO SCH (06:00)
[2018-06-23] MEDS: VANCOMYCIN 250MG/5ML ORAL SOLN PO SCH ×5 (06:00→23:59)
[2018-06-23] MEDS: PIPER-TAZ 3.375 GM 50 ML IV SCH ×3 (06:04→21:10)
[2018-06-23] MEDS: INSULIN REGULAR, HUMAN 100 UNIT/1 ML 3ML VIAL SQ SCH ×4 (07:30→21:00)
--- NOTE | 2018-06-23 08:57 | Diagnostic Imaging Report ---
EXAMINATION: CHEST SINGLE (PORTABLE) INDICATION: ^pleural effusion ^[id number] ^0800 COMPARISON: Chest radiograph 06/22/2018 FINDINGS: AP view TUBES and LINES: Stable right IJ central venous catheter, NG/OG tube, and left lower chest tube. LUNGS: Lungs are well inflated. Unchanged left lower lobe consolidation. PLEURA: Moderate left pleural effusion, unchanged. HEART AND MEDIASTINUM: The cardiomediastinal silhouette is unremarkable.. BONES AND SOFT TISSUES: No acute osseous lesion. Surgical clips overlying the right lateral chest. UPPER ABDOMEN: No free air under the diaphragm. IMPRESSION: Unchanged left lower lobe consolidation and moderate left pleural effusion. Signed by: Dr. Megan Brantley M.D. on 06/23/2018 8:53 AM
[2018-06-23] MEDS: FUROSEMIDE INJ 10 MG/ML 4 ML VIAL IV SCH (09:25)
[2018-06-23] MEDS: PANTOPRAZOLE 40 MG 10ML VIAL IV SCH (09:25)
[2018-06-23] MEDS: BALSAM PERU/CASTOR OIL 60 GM OINT...G. TP SCH ×3 (09:25→17:04)
[2018-06-23] MEDS: FENOFIBRATE 145 MG TAB PO SCH (09:25)
[2018-06-23] MEDS: POTASSIUM CHLORIDE 20MEQ/15ML UDC NG SCH ×2 (09:25→17:04)
[2018-06-23] MEDS: DEXTROSE 5% 1,000 ML IV SCH (09:26)
[2018-06-23] MEDS: HEPARIN SOD (PORCINE) 5,000 UNIT/ML VIAL SC SCH (09:29)
[2018-06-23] MEDS: HYDRALAZINE HCL 20 MG/ML VIAL IV PRN ×3 (12:00→21:09)
[2018-06-23] MEDS: AMIODARONE HCL 200 MG TAB PO SCH ×2 (13:06→21:10)
--- NOTE | 2018-06-23 13:19 | Diagnostic Imaging Report ---
PROCEDURE: ULTRASOUND GUIDED THORACENTESIS COMPARISON: None. INDICATIONS: pleural effusion FINDINGS: After informed consent was obtained, the patient was placed in the sitting position and preliminary ultrasound of the posterior chest identified a safe route into the left pleural effusion. The overlying skin was prepped and draped in usual sterile fashion. Lidocaine 1% was used for local anesthesia. Under ultrasound guidance, a 5 Wallisian sheathed centesis needle was advanced into the pleural fluid and 1,200 cc were aspirated. The patient tolerated the procedure well and there were no immediate post-procedural complications. A post-thoracentesis chest radiograph will be obtained. Patient did complain of severe pain following procedure. A dose of 25 mcg of Fentanyl was administered IV for pain. CONCLUSION: Uncomplicated ultrasound-guided left-sided thoracentesis with removal of 1,200 cc. Pedro Alcantara D.O. Dictated by: Pedro Alcantara D.O. on 06/23/2018 at 13:28 Electronically approved by: Pedro Alcantara D.O. on 06/23/2018 at 13:28
[2018-06-23] MEDS: ONDANSETRON HCL INJ 2 MG/ML VIAL IV PRN ×2 (15:37→21:09)
[2018-06-24] VITALS (99 sets, daily range): BP systolic 134–199; BP diastolic 43–118
[2018-06-24] MEDS: ACETAMINOPHEN 325 MG TAB PO PRN (02:01)
[2018-06-24] MEDS: ONDANSETRON HCL INJ 2 MG/ML VIAL IV PRN ×2 (02:01→09:38)
[2018-06-24] MEDS: HYDRALAZINE HCL 20 MG/ML VIAL IV PRN ×4 (02:01→22:03)
[2018-06-24 03:35] LABS: BASOPHILS # (AUTO) 0.1 (0.0-0.1); BASOPHILS % 0.7 % (0.0-1.0); EOSINOPHILS # (AUTO) 0.7 (0.0-0.4); EOSINOPHILS % 6.7 % (0.0-6.0); HEMOGLOBIN 9.9 g/dL (12.0-16.0); LYMPHOCYTES # (AUTO) 0.9 (1.0-3.2); LYMPHOCYTES % 8.8 % (18.0-39.1); MEAN CORPUSCULAR HEMOGLOBIN 29.8 pg (28-32); MEAN CORPUSCULAR HGB CONC 30.9 g/dL (31-35); MEAN CORPUSCULAR VOLUME 96.4 fL (81-99); MONOCYTES # (AUTO) 0.7 (0.2-0.8); MONOCYTES % 7.3 % (4.4-11.3); NEUTROPHILS # (AUTO) 7.7 (2.1-6.9); PLATELET COUNT 186 x10e3/uL (140-360); RED BLOOD COUNT 3.32 x10e6/uL (3.6-5.1); RED CELL DISTRIBUTION WIDTH 16.3 % (11.7-14.4)
[2018-06-24 03:52] LABS: ANION GAP 13.6 mmol/L (8-16); CALCIUM 9.4 mg/dL (8.4-10.2); CREATININE, SERUM 1.96 mg/dL (0.57-1.11); MAGNESIUM 1.6 MG/DL (1.3-2.1); POTASSIUM 3.6 mmol/L (3.5-5.1)
[2018-06-24] MEDS: DEXTROSE 5% 1,000 ML IV SCH (04:54)
[2018-06-24] MEDS: PIPER-TAZ 3.375 GM 50 ML IV SCH ×3 (05:03→21:52)
[2018-06-24] MEDS: VANCOMYCIN 250MG/5ML ORAL SOLN PO SCH ×3 (05:37→18:00)
[2018-06-24] MEDS: AMIODARONE HCL 200 MG TAB PO SCH ×3 (05:37→21:52)
[2018-06-24] MEDS: LEVOTHYROXINE SODIUM 100 MCG TAB PO SCH (05:37)
--- NOTE | 2018-06-24 06:42 | Diagnostic Imaging Report ---
EXAMINATION: CHEST SINGLE (PORTABLE) INDICATION: Pleural effusion COMPARISON: 06/23/2018 FINDINGS: TUBES and LINES: Right IJ central line catheter, NG tube and left base chest tube are stable LUNGS: Minimal right lung base atelectasis confluent opacity in the left lung base compatible with pneumonia versus atelectasis PLEURA: Stable left pleural effusion HEART AND MEDIASTINUM: The cardiomediastinal silhouette is unremarkable. There are atherosclerotic calcifications within the aorta. BONES AND SOFT TISSUES: No acute osseous lesion. Soft tissues are unremarkable. UPPER ABDOMEN: No free air under the diaphragm. IMPRESSION: Stable left pleural effusion and confluent opacity in the left lower lobe suspicious for pneumonia versus atelectasis Signed by: Dr. Nik Young M.D. on 06/24/2018 6:39 AM
[2018-06-24] MEDS: INSULIN REGULAR, HUMAN 100 UNIT/1 ML 3ML VIAL SQ SCH ×4 (07:30→21:00)
[2018-06-24] MEDS: BALSAM PERU/CASTOR OIL 60 GM OINT...G. TP SCH ×3 (09:00→23:00)
[2018-06-24] MEDS: FUROSEMIDE INJ 10 MG/ML 4 ML VIAL IV SCH (09:00)
[2018-06-24] MEDS: PANTOPRAZOLE 40 MG 10ML VIAL IV SCH (09:00)
[2018-06-24] MEDS: POTASSIUM CHLORIDE 20MEQ/15ML UDC NG SCH ×2 (09:00→17:00)
[2018-06-24] MEDS: FENOFIBRATE 145 MG TAB PO SCH (09:00)
[2018-06-24] MEDS: METOPROLOL TARTRATE INJ 1 MG/ML VIAL IV PRN (09:43)
--- NOTE | 2018-06-24 16:40 | Progress Note ---
DATE: June 24, 2018 RENAL PROGRESS NOTE SUBJECTIVE: Following for acute kidney injury on chronic kidney disease stage 4. Stable kidney function. Creatinine around 1.96, which is her baseline. Nonoliguric. Remains extubated now. No overt respiratory distress. Has an NG tube in place. The patient is awaiting MBS, which will be done tomorrow. No nausea. Does have NG tube output. Does have some diarrhea still. OBJECTIVE VITAL SIGNS: Noted. Blood pressure 145/54, pulse 81, afebrile. LUNGS: Clear to auscultation bilaterally. CARDIOVASCULAR: S1 and S2 with no rubs. ABDOMEN: Soft. EXTREMITIES: No edema. LABORATORY DATA: Sodium 147, potassium 3.6, chloride 106, bicarb 31, BUN 47, creatinine 1.96. IMPRESSION AND PLAN 1. Acute kidney injury on chronic kidney disease, stage 4. The patient is at baseline serum creatinine. May change her Lasix to oral, probably in the next 24 to 48 hours. 2. Hypertension. Blood pressure is stable and better controlled. Cardiology managing. 3. Hypernatremia, better with D5 water. Continue for now until the patient is on a diet. 4. Congestive heart failure. Continue IV Lasix and likely will switch to oral Lasix tomorrow. Job#: [id number]
[2018-06-24] MEDS ORDERED: OMEPRAZOLE 20 MG CAP PO SCH (21:00)
[2018-06-24] MEDS: PANTOPRAZOLE SOD 40 MG TABEC PO SCH (21:30)
[2018-06-25] VITALS (59 sets, daily range): BP systolic 144–191; BP diastolic 42–133
[2018-06-25] MEDS: DEXTROSE 5% 1,000 ML IV SCH (01:15)
[2018-06-25] MEDS: METOPROLOL TARTRATE INJ 1 MG/ML VIAL IV PRN ×2 (03:00→18:40)
[2018-06-25 04:58] LABS: BASOPHILS # (AUTO) 0.1 (0.0-0.1); BASOPHILS % 0.7 % (0.0-1.0); EOSINOPHILS # (AUTO) 0.7 (0.0-0.4); EOSINOPHILS % 6.3 % (0.0-6.0); HEMATOCRIT 31.1 % (34.2-44.1); HEMOGLOBIN 9.7 g/dL (12.0-16.0); LYMPHOCYTES # (AUTO) 0.8 (1.0-3.2); LYMPHOCYTES % 7.7 % (18.0-39.1); MEAN CORPUSCULAR HEMOGLOBIN 29.9 pg (28-32); MEAN CORPUSCULAR HGB CONC 31.2 g/dL (31-35); MONOCYTES # (AUTO) 0.7 (0.2-0.8); MONOCYTES % 6.6 % (4.4-11.3); NEUTROPHILS # (AUTO) 8.5 (2.1-6.9); NEUTROPHILS % 78.2 % (38.7-80.0); PLATELET COUNT 179 x10e3/uL (140-360); RED BLOOD COUNT 3.24 x10e6/uL (3.6-5.1); RED CELL DISTRIBUTION WIDTH 16.5 % (11.7-14.4)
[2018-06-25 05:04] LABS: ANION GAP 10.5 mmol/L (8-16); CALCIUM 9.1 mg/dL (8.4-10.2); CREATININE, SERUM 1.91 mg/dL (0.57-1.11); MAGNESIUM 1.4 MG/DL (1.3-2.1); PHOSPHORUS 2.3 MG/DL (2.3-4.7); POTASSIUM 3.5 mmol/L (3.5-5.1)
[2018-06-25] MEDS: LEVOTHYROXINE SODIUM 100 MCG TAB PO SCH (05:56)
[2018-06-25] MEDS: PIPER-TAZ 3.375 GM 50 ML IV SCH ×3 (05:56→21:00)
[2018-06-25] MEDS: AMIODARONE HCL 200 MG TAB PO SCH ×3 (05:56→21:00)
[2018-06-25] MEDS: VANCOMYCIN 250MG/5ML ORAL SOLN PO SCH ×3 (05:56→12:00)
--- NOTE | 2018-06-25 06:14 | Diagnostic Imaging Report ---
CHEST SINGLE (PORTABLE), 06/25/2018 5:00 AM Technique: CHEST SINGLE (PORTABLE) Comparison: 06/24/2018 Clinical history: Pleural effusion Findings: Stable cardiac silhouette and bones, soft tissues. Right axillary clips. Impression: 1. Lines/Tubes: Stable right IJ CVC over the cavoatrial junction, left basilar chest tube and subdiaphragmatic NG tube. 2. Unchanged left lower lobe atelectasis or consolidation with underlying pleural fluid. No pneumothorax. 3. Stable mild right basilar opacity/atelectasis. Signed by: Dr Taylor Noyola MD on 06/25/2018 6:11 AM
[2018-06-25] MEDS: INSULIN REGULAR, HUMAN 100 UNIT/1 ML 3ML VIAL SQ SCH ×4 (07:30→21:00)
[2018-06-25] MEDS ORDERED: DEXTROSE 5%/0.45% SOD CHL 1,000 ML IV ONE ×2 (08:30→17:26)
[2018-06-25] MEDS ORDERED: MAGNESIUM SULFATE 2GM/50ML 50 ML IV ONE ×2 (08:30→12:43)
--- NOTE | 2018-06-25 08:54 | Progress Note ---
DATE: June 25, 2018 RENAL PROGRESS NOTE SUBJECTIVE: Followed for acute kidney injury on chronic kidney disease, stage 4. Kidney function remains stable. Creatinine 1.9. No nausea. No vomiting. No shortness of breath. OBJECTIVE VITAL SIGNS: Have been noted. Stable. Blood pressure slightly running on the higher side. Being managed by cardiology. LUNGS: Clear to auscultation bilaterally. CARDIOVASCULAR: S1 and S2. No rub. ABDOMEN: Soft and nontender. EXTREMITIES: No edema. LABS: Sodium 142, potassium 3.5, chloride 101, carb 34, BUN 38, creatinine 1.9. Calcium 9.1. Phosphorus 2.3. Magnesium 1.4. IMPRESSION AND PLAN 1. Chronic kidney disease, stage 4, at baseline: Will continue to monitor. Will keep on intravenous fluids. Change to D5-1/2 NS at 50 mL per hour. 2. Hypertension: Blood pressure is elevated, however, being managed by cardiology. Will defer management to them. 3. Hypernatremia, resolved: Will change intravenous fluids as outlined above. 4. Hypokalemia: Continue all potassium and chloride by the gastrostomy tube. 5. Congestive heart failure, history: Continue Lasix orally now. Discontinue intravenous Lasix. 6. Hypomagnesemia: Replace and recheck again tomorrow. Job#: [id number] KORI
[2018-06-25] MEDS: FENOFIBRATE 145 MG TAB PO SCH (09:00)
[2018-06-25] MEDS: POTASSIUM CHLORIDE 20MEQ/15ML UDC NG SCH ×2 (09:00→17:00)
[2018-06-25] MEDS: FUROSEMIDE 40 MG TAB PO SCH (09:00)
[2018-06-25] MEDS: PANTOPRAZOLE SOD 40 MG TABEC PO SCH (09:00)
[2018-06-25] MEDS: BALSAM PERU/CASTOR OIL 60 GM OINT...G. TP SCH ×3 (09:00→17:00)
[2018-06-25] MEDS: ACETAMINOPHEN 325 MG TAB PO PRN (13:26)
--- NOTE | 2018-06-25 14:46 | Diagnostic Imaging Report ---
PROCEDURE: X-RAY MODIFIED BARIUM SWALLOW COMPARISON: None. INDICATION: Aspiration. DISCUSSION: Fluoroscopic examination was performed in conjunction with speech pathology during swallowing a variety of thin and thick liquid consistencies. Aspiration is noted on provided images to the level of the upper trachea. CONCLUSION: Aspiration is noted on provided images. Please refer to the speech pathology report for further details. Signed by: Dr. Didi Dubose MD on 06/25/2018 2:42 PM
[2018-06-25 16:56] LABS: ANION GAP 11.8 mmol/L (8-16); CALCIUM 9.1 mg/dL (8.4-10.2); CREATININE, SERUM 1.9 mg/dL (0.57-1.11); MAGNESIUM 2.3 MG/DL (1.3-2.1); POTASSIUM 3.8 mmol/L (3.5-5.1)
[2018-06-25] MEDS: ONDANSETRON HCL INJ 2 MG/ML VIAL IV PRN (19:40)
[2018-06-26] VITALS (45 sets, daily range): BP systolic 125–193; BP diastolic 40–111
[2018-06-26] MEDS: ONDANSETRON HCL INJ 2 MG/ML VIAL IV PRN ×2 (02:07→23:00)
[2018-06-26] MEDS: HYDRALAZINE HCL 20 MG/ML VIAL IV PRN ×2 (03:14→22:13)
[2018-06-26] MEDS: LEVOTHYROXINE SODIUM 100 MCG TAB PO SCH (05:04)
[2018-06-26] MEDS: PIPER-TAZ 3.375 GM 50 ML IV SCH ×3 (05:04→22:11)
[2018-06-26 05:21] LABS: BASOPHILS # (AUTO) 0.1 (0.0-0.1); BASOPHILS % 0.8 % (0.0-1.0); EOSINOPHILS # (AUTO) 0.9 (0.0-0.4); EOSINOPHILS % 5.6 % (0.0-6.0); HEMATOCRIT 33.3 % (34.2-44.1); HEMOGLOBIN 10.4 g/dL (12.0-16.0); LYMPHOCYTES # (AUTO) 1.5 (1.0-3.2); LYMPHOCYTES % 9.7 % (18.0-39.1); MEAN CORPUSCULAR HEMOGLOBIN 30.1 pg (28-32); MEAN CORPUSCULAR HGB CONC 31.2 g/dL (31-35); MEAN CORPUSCULAR VOLUME 96.5 fL (81-99); MONOCYTES # (AUTO) 1.2 (0.2-0.8); MONOCYTES % 7.6 % (4.4-11.3); NEUTROPHILS # (AUTO) 11.7 (2.1-6.9); NEUTROPHILS % 75.7 % (38.7-80.0); PLATELET COUNT 234 x10e3/uL (140-360); RED BLOOD COUNT 3.45 x10e6/uL (3.6-5.1); RED CELL DISTRIBUTION WIDTH 16.6 % (11.7-14.4)
[2018-06-26 05:35] LABS: ANION GAP 12.8 mmol/L (8-16); CALCIUM 9.2 mg/dL (8.4-10.2); CREATININE, SERUM 1.87 mg/dL (0.57-1.11); MAGNESIUM 1.9 MG/DL (1.3-2.1); PHOSPHORUS 2.3 MG/DL (2.3-4.7); POTASSIUM 3.8 mmol/L (3.5-5.1)
--- NOTE | 2018-06-26 05:44 | Diagnostic Imaging Report ---
CHEST SINGLE (PORTABLE), 06/26/2018 5:00 AM Technique: CHEST SINGLE (PORTABLE) Comparison: 06/25/2018 Clinical history: Pleural effusion Findings: Stable cardiac silhouette and bones, soft tissues. Right axillary clips. Impression: 1. Lines/Tubes: Stable right IJ CVC over the cavoatrial junction, left basilar chest tube and subdiaphragmatic NG tube. 2. Unchanged left lower lobe atelectasis or consolidation with underlying pleural fluid. No pneumothorax. 3. Stable mild right basilar opacity/atelectasis. Signed by: Dr Taylor Noyola MD on 06/26/2018 5:40 AM
[2018-06-26] MEDS: PANTOPRAZOLE SOD 40 MG TABEC PO SCH (07:30)
[2018-06-26] MEDS: INSULIN REGULAR, HUMAN 100 UNIT/1 ML 3ML VIAL SQ SCH ×4 (07:30→21:00)
[2018-06-26] MEDS: BALSAM PERU/CASTOR OIL 60 GM OINT...G. TP SCH ×3 (09:00→16:56)
[2018-06-26] MEDS: POTASSIUM CHLORIDE 20MEQ/15ML UDC NG SCH ×2 (09:00→17:00)
[2018-06-26] MEDS: FENOFIBRATE 145 MG TAB PO SCH (09:00)
[2018-06-26] MEDS: FUROSEMIDE 40 MG TAB PO SCH (09:00)
[2018-06-26] MEDS: ALBUTEROL/IPRATROPIUM 3 ML NEB NEB PRN (11:40)
[2018-06-26] MEDS: VANCOMYCIN 250MG/5ML ORAL SOLN PO SCH ×3 (12:00→23:57)
--- NOTE | 2018-06-26 16:21 | Progress Note ---
DATE: June 26, 2018 RENAL PROGRESS NOTE SUBJECTIVE: Followed for chronic kidney disease stage 3 to stage 4, stable kidney function. Creatinine today is 1.87, potassium 3.8. No nausea, no vomiting, no shortness of breath. Patient had a barium swallow done yesterday. Currently the patient remains n.p.o. Patient is on D5 half-normal saline at 50 mL per hour. OBJECTIVE VITAL SIGNS: Have been noted and are stable. LUNGS: Minimal rales at the bases. CARDIOVASCULAR: S1 and S2. No rub. ABDOMEN: Soft, nontender. EXTREMITIES: No edema. LABS: Have been reviewed. Creatinine is 1.87, potassium 3.8. IMPRESSION AND PLAN 1. Chronic kidney disease stage 3 to stage 4, stable kidney function at baseline. Will continue to monitor. 2. Hypertension, stable, improving. Cardiology managing. 3. Hypokalemia, resolved. On potassium supplements. 4. Congestive heart failure history. On oral Lasix. 5. On maintenance intravenous fluids until can be on a diet. Thank you once again. Job#: [id number] EV
[2018-06-26] MEDS ORDERED: AMIODARONE HCL 200 MG TAB PO SCH (16:30)
[2018-06-26 16:51] LABS: ANION GAP 10.9 mmol/L (8-16); CREATININE, SERUM 1.9 mg/dL (0.57-1.11); MAGNESIUM 1.6 MG/DL (1.3-2.1); POTASSIUM 3.9 mmol/L (3.5-5.1)
[2018-06-26] MEDS ORDERED: DEXTROSE 5%/0.45% SOD CHL 1,000 ML IV SCH (17:15)
[2018-06-26] MEDS: AMIODARONE HCL 200 MG TAB PO SCH (18:33)
[2018-06-26] MEDS: ACETAMINOPHEN 325 MG TAB PO PRN (22:12)
[2018-06-27] VITALS (38 sets, daily range): BP systolic 123–178; BP diastolic 44–129
[2018-06-27 04:44] LABS: BASOPHILS # (AUTO) 0.1 (0.0-0.1); BASOPHILS % 0.9 % (0.0-1.0); EOSINOPHILS # (AUTO) 0.8 (0.0-0.4); EOSINOPHILS % 8.4 % (0.0-6.0); HEMATOCRIT 29.3 % (34.2-44.1); HEMOGLOBIN 9.1 g/dL (12.0-16.0); LYMPHOCYTES # (AUTO) 0.8 (1.0-3.2); LYMPHOCYTES % 8.9 % (18.0-39.1); MEAN CORPUSCULAR HEMOGLOBIN 30.2 pg (28-32); MEAN CORPUSCULAR HGB CONC 31.1 g/dL (31-35); MEAN CORPUSCULAR VOLUME 97.3 fL (81-99); MONOCYTES # (AUTO) 0.7 (0.2-0.8); MONOCYTES % 7.7 % (4.4-11.3); NEUTROPHILS # (AUTO) 6.8 (2.1-6.9); NEUTROPHILS % 73.8 % (38.7-80.0); PLATELET COUNT 181 x10e3/uL (140-360); RED BLOOD COUNT 3.01 x10e6/uL (3.6-5.1); RED CELL DISTRIBUTION WIDTH 16.6 % (11.7-14.4)
[2018-06-27 05:04] LABS: ANION GAP 9.6 mmol/L (8-16); CALCIUM 8.7 mg/dL (8.4-10.2); CREATININE, SERUM 1.84 mg/dL (0.57-1.11); MAGNESIUM 1.9 MG/DL (1.3-2.1); POTASSIUM 3.6 mmol/L (3.5-5.1)
[2018-06-27] MEDS: PIPER-TAZ 3.375 GM 50 ML IV SCH ×3 (05:27→21:55)
[2018-06-27] MEDS: VANCOMYCIN 250MG/5ML ORAL SOLN PO SCH ×4 (05:27→23:51)
[2018-06-27] MEDS: LEVOTHYROXINE SODIUM 100 MCG TAB PO SCH (05:27)
--- NOTE | 2018-06-27 06:40 | Diagnostic Imaging Report ---
CHEST SINGLE (PORTABLE), 06/27/2018 5:00 AM Technique: CHEST SINGLE (PORTABLE) Comparison: Previous day Clinical history: Pleural effusion Findings: Stable cardiac silhouette and bones, soft tissues. Right axillary clips. Impression: 1. Lines/Tubes: Stable right IJ CVC over the cavoatrial junction, left basilar chest tube and subdiaphragmatic NG tube. 2. Unchanged left lower lobe atelectasis or consolidation with underlying pleural fluid. No pneumothorax. 3. Stable mild right basilar opacity/atelectasis. Signed by: Dr Taylor Noyola MD on 06/27/2018 6:37 AM
[2018-06-27] MEDS: INSULIN REGULAR, HUMAN 100 UNIT/1 ML 3ML VIAL SQ SCH ×4 (07:30→21:00)
[2018-06-27] MEDS: PANTOPRAZOLE SOD 40 MG TABEC PO SCH (07:30)
[2018-06-27] MEDS: DEXTROSE 5%/0.9% SOD CHL 1,000 ML IV SCH (09:11)
--- NOTE | 2018-06-27 09:11 | Progress Note ---
DATE: June 27, 2018 RENAL PROGRESS NOTE SUBJECTIVE: Followed for CKD, stage 3 to stage 4. Patient is stable now at CKD stage 4, creatinine around 1.8 to 1.9 mg/dL. Nonoliguric. Still not able to be fed. Patient failed her barium swallow study. Remains with an NG tube to suction. No overt respiratory distress. Has had a bit of a cough. OBJECTIVE: VITAL SIGNS: Noted and are stable. LUNGS: Minimal rales at the base. CARDIOVASCULAR: S1 and S2. No rub. ABDOMEN: Soft, nontender. EXTREMITIES: No edema. LABS: Sodium 135, potassium 3.6, chloride 96, bicarb 33, BUN 30, creatinine is 1.8. IMPRESSION AND PLAN: 1. Chronic kidney disease, stage 4, stable now. Acute kidney injury has resolved. Will keep on gentle intravenous fluid for maintenance until patient has been placed on any tube feeding or total parenteral nutrition. 2. Hypertension. Blood pressure is being managed by cardiology. Defer to cardiology. 3. History of congestive heart failure. Continue oral Lasix. 4. Hypokalemia, resolved. Patient is on oral potassium chloride. Thank you once again. Job#: [id number]
[2018-06-27] MEDS: FENOFIBRATE 145 MG TAB PO SCH (09:36)
[2018-06-27] MEDS: BALSAM PERU/CASTOR OIL 60 GM OINT...G. TP SCH ×3 (09:36→17:52)
[2018-06-27] MEDS: AMIODARONE HCL 200 MG TAB PO SCH (09:36)
[2018-06-27] MEDS: FUROSEMIDE 40 MG TAB PO SCH (09:36)
[2018-06-27] MEDS: POTASSIUM CHLORIDE 20MEQ/15ML UDC NG SCH ×2 (11:23→16:12)
[2018-06-27] MEDS: ALBUTEROL/IPRATROPIUM 3 ML NEB NEB PRN (13:58)
[2018-06-27 18:23] LABS: CALCIUM 8.8 mg/dL (8.4-10.2); CREATININE, SERUM 1.89 mg/dL (0.57-1.11)
[2018-06-27] MEDS: ACETAMINOPHEN 325 MG TAB PO PRN (20:43)
[2018-06-28 04:50] VITALS: BP 165/56
[2018-06-28] MEDS: METOPROLOL TARTRATE INJ 1 MG/ML VIAL IV PRN (05:19)
[2018-06-28 05:29] LABS: ANION GAP 12.8 mmol/L (8-16); CALCIUM 8.6 mg/dL (8.4-10.2); CREATININE, SERUM 1.82 mg/dL (0.57-1.11); MAGNESIUM 1.5 MG/DL (1.3-2.1); POTASSIUM 3.8 mmol/L (3.5-5.1)
[2018-06-28 05:48] LABS: BASOPHILS # (AUTO) 0.1 (0.0-0.1); EOSINOPHILS # (AUTO) 0.8 (0.0-0.4); EOSINOPHILS % 8.4 % (0.0-6.0); HEMATOCRIT 28.8 % (34.2-44.1); LYMPHOCYTES # (AUTO) 0.8 (1.0-3.2); LYMPHOCYTES % 8.7 % (18.0-39.1); MEAN CORPUSCULAR HEMOGLOBIN 30.6 pg (28-32); MEAN CORPUSCULAR HGB CONC 31.3 g/dL (31-35); MONOCYTES # (AUTO) 0.6 (0.2-0.8); MONOCYTES % 6.3 % (4.4-11.3); NEUTROPHILS # (AUTO) 7.1 (2.1-6.9); NEUTROPHILS % 74.1 % (38.7-80.0); PLATELET COUNT 171 x10e3/uL (140-360); RED BLOOD COUNT 2.94 x10e6/uL (3.6-5.1); RED CELL DISTRIBUTION WIDTH 16.4 % (11.7-14.4)
[2018-06-28] MEDS: PIPER-TAZ 3.375 GM 50 ML IV SCH (05:51)
[2018-06-28] MEDS: VANCOMYCIN 250MG/5ML ORAL SOLN PO SCH ×3 (05:51→17:04)
[2018-06-28] MEDS: LEVOTHYROXINE SODIUM 100 MCG TAB PO SCH (05:51)
[2018-06-28] MEDS: INSULIN REGULAR, HUMAN 100 UNIT/1 ML 3ML VIAL SQ SCH ×4 (07:30→21:00)
[2018-06-28 07:58] VITALS: BP 172/61
[2018-06-28] MEDS: FUROSEMIDE 40 MG TAB PO SCH (09:40)
[2018-06-28] MEDS: AMIODARONE HCL 200 MG TAB PO SCH (09:40)
[2018-06-28] MEDS: PANTOPRAZOLE SOD 40 MG TABEC PO SCH (09:40)
[2018-06-28] MEDS: BALSAM PERU/CASTOR OIL 60 GM OINT...G. TP SCH ×3 (09:40→16:04)
[2018-06-28] MEDS: POTASSIUM CHLORIDE 20MEQ/15ML UDC NG SCH ×2 (09:40→17:04)
[2018-06-28] MEDS: FENOFIBRATE 145 MG TAB PO SCH (09:40)
[2018-06-28] MEDS: HYDRALAZINE HCL 20 MG/ML VIAL IV PRN (10:00)
[2018-06-28] MEDS: DEXTROSE 5%/0.9% SOD CHL 1,000 ML IV SCH (10:02)
[2018-06-28 12:02] VITALS: BP 123/45
[2018-06-28 15:34] LABS: ANION GAP 10.8 mmol/L (8-16); CALCIUM 8.6 mg/dL (8.4-10.2); CREATININE, SERUM 1.69 mg/dL (0.57-1.11); POTASSIUM 3.8 mmol/L (3.5-5.1)
[2018-06-28 16:00] VITALS: BP 109/37
--- NOTE | 2018-06-28 17:04 | Progress Note ---
DATE: June 28, 2018 RENAL PROGRESS NOTE SUBJECTIVE: Followed for acute kidney injury on chronic kidney disease, stage 3 to stage 4. Kidney function continues to improve. Creatinine is down to 1.7. Potassium is 3.8. Patient is on tube feeding now. Remains n.p.o. Does have NG output now. No shortness of breath. No vomiting at this time. No chest pain at this time. OBJECTIVE VITAL SIGNS: As follows: Blood pressure 109/37, 79 pulse and afebrile. LUNGS: Have minimal rales at the bases bilaterally. CARDIOVASCULAR: S1 and S2. No rub. ABDOMEN: Soft and nontender. EXTREMITIES: No edema. LABS: Have been reviewed. Potassium 3.8, BUN 26, creatinine is 1.7. Calcium 8.6. H and H is 9 and 29. IMPRESSION AND PLAN 1. Chronic kidney disease, stage 4: Stable at baseline. Will continue to monitor closely. Acute kidney injury resolved. 2. Hypertension, stable. 3. History of congestive heart failure: Continue with Lasix twice a day. Job#: [id number] ME
[2018-06-28] MEDS: ACETAMINOPHEN 325 MG TAB PO PRN (18:45)
[2018-06-28 19:00] VITALS: BP 159/56
[2018-06-28 20:00] VITALS: BP 159/56
[2018-06-28] MEDS: HYDROCODONE/APAP 5MG-325MG TAB PO PRN (20:48)
[2018-06-29] MEDS: VANCOMYCIN 250MG/5ML ORAL SOLN PO SCH ×4 (00:07→17:24)
[2018-06-29 05:00] VITALS: BP 183/60
[2018-06-29] MEDS: LEVOTHYROXINE SODIUM 100 MCG TAB PO SCH (06:13)
[2018-06-29 06:22] LABS: BASOPHILS # (AUTO) 0.1 (0.0-0.1); BASOPHILS % 0.8 % (0.0-1.0); EOSINOPHILS # (AUTO) 0.8 (0.0-0.4); EOSINOPHILS % 8.9 % (0.0-6.0); HEMATOCRIT 29.4 % (34.2-44.1); LYMPHOCYTES # (AUTO) 0.8 (1.0-3.2); LYMPHOCYTES % 9.6 % (18.0-39.1); MEAN CORPUSCULAR HEMOGLOBIN 30.1 pg (28-32); MEAN CORPUSCULAR HGB CONC 30.6 g/dL (31-35); MEAN CORPUSCULAR VOLUME 98.3 fL (81-99); MONOCYTES # (AUTO) 0.6 (0.2-0.8); MONOCYTES % 6.8 % (4.4-11.3); NEUTROPHILS # (AUTO) 6.3 (2.1-6.9); NEUTROPHILS % 73.4 % (38.7-80.0); PLATELET COUNT 171 x10e3/uL (140-360); RED BLOOD COUNT 2.99 x10e6/uL (3.6-5.1); RED CELL DISTRIBUTION WIDTH 16.2 % (11.7-14.4)
--- NOTE | 2018-06-29 06:32 | Diagnostic Imaging Report ---
CHEST SINGLE (PORTABLE), 06/29/2018 3:00 AM Technique: CHEST SINGLE (PORTABLE) Comparison: Previous day Clinical history: Effusion Findings: Stable cardiac silhouette and bones, soft tissues. Right axillary clips. Impression: 1. Lines/Tubes: Stable right IJ CVC over the cavoatrial junction, subdiaphragmatic NG tube. Previous left basilar chest tube obscured by overlying leads. 2. Unchanged left lower lobe atelectasis or consolidation with underlying pleural fluid. No pneumothorax. 3. Stable mild right basilar opacity/atelectasis. Signed by: Dr Taylor Noyola MD on 06/29/2018 6:29 AM
[2018-06-29 06:35] LABS: ANION GAP 9.9 mmol/L (8-16); CALCIUM 8.4 mg/dL (8.4-10.2); CREATININE, SERUM 1.6 mg/dL (0.57-1.11); MAGNESIUM 1.5 MG/DL (1.3-2.1); PHOSPHORUS 2.5 MG/DL (2.3-4.7); POTASSIUM 3.9 mmol/L (3.5-5.1)
[2018-06-29] MEDS: HYDROCODONE/APAP 5MG-325MG TAB PO PRN ×3 (06:37→17:25)
[2018-06-29] MEDS: HYDRALAZINE HCL 20 MG/ML VIAL IV PRN (06:39)
[2018-06-29 08:00] VITALS: BP 127/63
[2018-06-29] MEDS: INSULIN REGULAR, HUMAN 100 UNIT/1 ML 3ML VIAL SQ SCH ×4 (08:20→21:00)
[2018-06-29] MEDS: PANTOPRAZOLE SOD 40 MG TABEC PO SCH (08:30)
[2018-06-29] MEDS: AMIODARONE HCL 200 MG TAB PO SCH (08:56)
[2018-06-29] MEDS: FUROSEMIDE 40 MG TAB PO SCH ×2 (08:56→17:24)
[2018-06-29] MEDS: BALSAM PERU/CASTOR OIL 60 GM OINT...G. TP SCH ×3 (08:56→17:24)
[2018-06-29] MEDS: FENOFIBRATE 145 MG TAB PO SCH (08:56)
[2018-06-29] MEDS: POTASSIUM CHLORIDE 20MEQ/15ML UDC NG SCH ×2 (08:59→17:24)
[2018-06-29 11:54] VITALS: BP 134/58
[2018-06-29 15:54] VITALS: BP 137/46
--- NOTE | 2018-06-29 18:48 | Diagnostic Imaging Report ---
EXAMINATION: CT scan of the chest without contrast. TECHNIQUE: Spiral CT images of the chest were performed from the lung apices to the level of the adrenal glands. No intravenous contrast was administered per physician's request. Coronal and sagittal reformatted images were obtained. COMPARISON: CT chest 06/19/2018 CLINICAL HISTORY:Pleural effusion, abnormal chest x-ray DISCUSSION: ABSENCE OF INTRAVENOUS CONTRAST DECREASES SENSITIVITY FOR DETECTION OF FOCAL LESIONS AND VASCULAR PATHOLOGY. LINES/TUBES: Partially visualized enteric tube with distal tip in the stomach fundus/body. Stable right IJ central catheter LUNGS AND AIRWAYS: 2.6 cm focal subpleural density with surrounding swirling of airways and vessels in the lingula, likely representing round atelectasis, which is relatively stable since the prior exam . Persistent consolidation with air bronchograms in the left lower lobe, with evidence of volume loss (series 3, image 65-74), with left mediastinal deviation. Linear atelectatic changes in the right lower lobe are improved since the prior exam. No new consolidation. Central airways are clear, without endobronchial lesions. Persistent segmental bronchial filling defect in right lower lobe bronchi (for example series 3, image 65). Stable left upper lobe calcified granuloma. PLEURA: Stable small left hydropneumothorax. Resolved right pleural effusion.. HEART AND MEDIASTINUM: The thyroid gland is normal. No pericardial effusion. Mild cardiomegaly. Atherosclerotic calcification of the thoracic aorta and coronary arteries and aortic valves. LYMPH NODES: Unchanged borderline to mildly enlarged right upper paratracheal (series 2, image 38 and right lower paratracheal lymph nodes (series 2, image 53) . No axillary adenopathy. ABDOMEN: The visualized portions of the liver, spleen, left kidney and adrenal glands are unremarkable. BONES AND SOFT TISSUES: No acute bony abnormalities. IMPRESSION: 1. Persistent segmental bronchial filling defects in right lower lobe bronchi with associated persistent consolidation with air bronchograms likely reflecting atelectasis. Evidence of volume loss manifested by left mediastinal deviation. 2. Stable small left hydropneumothorax. Resolved right pleural effusion. 3. Stable round atelectasis in the lingula. Signed by: Dr. Zhou Kelly M.D. on 06/29/2018 6:45 PM
[2018-06-29 19:47] VITALS: BP 116/35
[2018-06-29 20:00] VITALS: BP 116/35
[2018-06-30 04:00] VITALS: BP 144/64
[2018-06-30 04:46] LABS: BASOPHILS # (AUTO) 0.1 (0.0-0.1); BASOPHILS % 0.9 % (0.0-1.0); EOSINOPHILS # (AUTO) 0.6 (0.0-0.4); EOSINOPHILS % 7.4 % (0.0-6.0); HEMOGLOBIN 8.6 g/dL (12.0-16.0); LYMPHOCYTES # (AUTO) 0.7 (1.0-3.2); LYMPHOCYTES % 8.7 % (18.0-39.1); MEAN CORPUSCULAR HGB CONC 30.7 g/dL (31-35); MEAN CORPUSCULAR VOLUME 97.6 fL (81-99); MONOCYTES # (AUTO) 0.6 (0.2-0.8); MONOCYTES % 6.8 % (4.4-11.3); NEUTROPHILS # (AUTO) 6.4 (2.1-6.9); NEUTROPHILS % 75.8 % (38.7-80.0); PLATELET COUNT 180 x10e3/uL (140-360); RED BLOOD COUNT 2.87 x10e6/uL (3.6-5.1); RED CELL DISTRIBUTION WIDTH 16.1 % (11.7-14.4)
[2018-06-30 05:07] LABS: ANION GAP 11.2 mmol/L (8-16); CALCIUM 8.4 mg/dL (8.4-10.2); CREATININE, SERUM 1.63 mg/dL (0.57-1.11); MAGNESIUM 1.6 MG/DL (1.3-2.1); POTASSIUM 4.2 mmol/L (3.5-5.1)
[2018-06-30] MEDS: LEVOTHYROXINE SODIUM 100 MCG TAB PO SCH (05:08)
[2018-06-30] MEDS: FUROSEMIDE 40 MG TAB PO SCH ×2 (05:08→18:08)
[2018-06-30] MEDS: VANCOMYCIN 250MG/5ML ORAL SOLN PO SCH ×5 (05:08→21:07)
[2018-06-30] MEDS: INSULIN REGULAR, HUMAN 100 UNIT/1 ML 3ML VIAL SQ SCH ×4 (05:46→21:09)
[2018-06-30] MEDS: PANTOPRAZOLE SOD 40 MG TABEC PO SCH (07:30)
[2018-06-30 08:10] VITALS: BP 117/59
[2018-06-30 08:11] VITALS: BP 117/59
[2018-06-30] MEDS: BALSAM PERU/CASTOR OIL 60 GM OINT...G. TP SCH ×3 (08:11→18:08)
[2018-06-30] MEDS: FENOFIBRATE 145 MG TAB PO SCH (09:54)
[2018-06-30] MEDS: AMIODARONE HCL 200 MG TAB PO SCH (09:54)
[2018-06-30] MEDS: POTASSIUM CHLORIDE 20MEQ/15ML UDC NG SCH ×2 (09:54→18:08)
[2018-06-30] MEDS: HYDROCODONE/APAP 5MG-325MG TAB PO PRN ×2 (11:30→21:07)
[2018-06-30 12:10] VITALS: BP 149/52
[2018-06-30] MEDS: ACETAMINOPHEN 325 MG TAB PO PRN (12:51)
[2018-06-30 15:38] VITALS: BP 126/50
[2018-06-30 20:00] VITALS: BP 128/56
[2018-07-01] MEDS: HYDROCODONE/APAP 5MG-325MG TAB PO PRN (02:14)
[2018-07-01] MEDS: INSULIN REGULAR, HUMAN 100 UNIT/1 ML 3ML VIAL SQ SCH ×4 (06:00→23:59)
[2018-07-01 07:22] LABS: BASOPHILS # (AUTO) 0.1 (0.0-0.1); BASOPHILS % 1.3 % (0.0-1.0); EOSINOPHILS # (AUTO) 0.6 (0.0-0.4); EOSINOPHILS % 7.8 % (0.0-6.0); HEMATOCRIT 26.2 % (34.2-44.1); LYMPHOCYTES # (AUTO) 0.9 (1.0-3.2); LYMPHOCYTES % 11.8 % (18.0-39.1); MEAN CORPUSCULAR HGB CONC 30.5 g/dL (31-35); MEAN CORPUSCULAR VOLUME 98.1 fL (81-99); MONOCYTES # (AUTO) 0.8 (0.2-0.8); MONOCYTES % 10.4 % (4.4-11.3); NEUTROPHILS # (AUTO) 5.1 (2.1-6.9); NEUTROPHILS % 68.3 % (38.7-80.0); PLATELET COUNT 209 x10e3/uL (140-360); RED BLOOD COUNT 2.67 x10e6/uL (3.6-5.1); RED CELL DISTRIBUTION WIDTH 16.1 % (11.7-14.4)
[2018-07-01] MEDS: PANTOPRAZOLE SOD 40 MG TABEC PO SCH (07:30)
[2018-07-01 07:35] LABS: ANION GAP 10.1 mmol/L (8-16); CALCIUM 7.6 mg/dL (8.4-10.2); CREATININE, SERUM 1.61 mg/dL (0.57-1.11); MAGNESIUM 1.5 MG/DL (1.3-2.1); POTASSIUM 4.1 mmol/L (3.5-5.1)
[2018-07-01 08:00] VITALS: BP 138/58
[2018-07-01] MEDS: FUROSEMIDE 40 MG TAB PO SCH ×2 (08:12→17:30)
[2018-07-01] MEDS: VANCOMYCIN 250MG/5ML ORAL SOLN PO SCH ×4 (08:12→23:59)
[2018-07-01] MEDS: LEVOTHYROXINE SODIUM 100 MCG TAB PO SCH (08:12)
[2018-07-01 09:06] VITALS: BP 138/58
--- NOTE | 2018-07-01 09:24 | Diagnostic Imaging Report ---
PROCEDURE:X-RAY ABDOMEN - KUB COMPARISON:KUB 06/20/18. INDICATIONS:NG TUBE PLACEMENT, ABDOMEN PAIN FINDINGS: Enteric tube terminates in the stomach, the side port is below the GE junction. No specific evidence of bowel obstruction or free air. Aortic atherosclerotic calcifications. Degenerative changes of the visualized spine with levoconvex scoliosis centered in the lumbar spine. Status post bilateral total hip arthroplasty, hardware is partially visualized. Left lower lobe opacity persists. CONCLUSION: Enteric tube terminates in the stomach. No specific evidence of bowel obstruction. Dictated by: ARVIND SWIFT M.D. on 07/01/2018 at 9:33 Electronically approved by: ARVIND SWIFT M.D. on 07/01/2018 at 9:33
[2018-07-01] MEDS: OYST-CAL-D 500MG TABLET PO SCH ×2 (09:30→17:30)
[2018-07-01] MEDS: POTASSIUM CHLORIDE 20MEQ/15ML UDC NG SCH ×2 (09:30→17:30)
[2018-07-01] MEDS: AMIODARONE HCL 200 MG TAB PO SCH (09:30)
[2018-07-01] MEDS: FENOFIBRATE 145 MG TAB PO SCH (09:30)
--- NOTE | 2018-07-01 09:45 | Progress Note ---
DATE: July 01, 2018 RENAL PROGRESS NOTE SUBJECTIVE: Followed by acute kidney injury on chronic kidney disease, stage 3. Kidney function appears to have stabilized with creatinine of 1.6. The patient is no longer fluid overloaded. The patient continues to require support as far as swallowing mechanism. She is currently on tube feeding via an NG tube. Supposed to have another swallow study done either today or tomorrow. The patient is also being evaluated for rehab. No nausea. No shortness of breath at this time. No abdominal pain. No chest pain. OBJECTIVE VITAL SIGNS: As follows: Blood pressure 138/58, 69 pulse and afebrile. LUNGS: Mostly clear to auscultation bilaterally. CARDIOVASCULAR: S1 and S2. No rub. ABDOMEN: Soft and nontender. EXTREMITIES: No edema. LABS: Sodium 141, potassium 4.1, chloride 104, carb 31, BUN 32, creatinine 1.6. IMPRESSION AND PLAN 1. Chronic kidney disease, stage 3: At baseline now. Acute kidney injury has resolved. 2. Hypertension, controlled. 3. History of congestive heart failure: Continue oral Lasix. Job#: [id number] KORI
[2018-07-01] MEDS: BALSAM PERU/CASTOR OIL 60 GM OINT...G. TP SCH ×3 (11:03→17:30)
[2018-07-01 16:00] VITALS: BP 158/60
[2018-07-01 19:43] VITALS: BP 144/52
[2018-07-01 20:00] VITALS: BP 144/52
[2018-07-01] MEDS: IRON SUCROSE 100 MG in SODIUM CHLORIDE 0.9% 100 ML 100 ML IV SCH (21:57)
[2018-07-01 23:33] VITALS: BP 130/84
[2018-07-02] VITALS (8 sets, daily range): BP systolic 134–150; BP diastolic 45–76
[2018-07-02] MEDS: LEVOTHYROXINE SODIUM 100 MCG TAB PO SCH (05:41)
[2018-07-02] MEDS: FUROSEMIDE 40 MG TAB PO SCH (05:41)
[2018-07-02] MEDS: VANCOMYCIN 250MG/5ML ORAL SOLN PO SCH ×3 (05:42→17:58)
[2018-07-02 05:54] LABS: ANION GAP 11.6 mmol/L (8-16); CREATININE, SERUM 1.89 mg/dL (0.57-1.11); POTASSIUM 4.6 mmol/L (3.5-5.1)
[2018-07-02 05:55] LABS: BASOPHILS # (AUTO) 0.1 (0.0-0.1); EOSINOPHILS # (AUTO) 0.5 (0.0-0.4); EOSINOPHILS % 8.5 % (0.0-6.0); HEMATOCRIT 28.3 % (34.2-44.1); HEMOGLOBIN 8.6 g/dL (12.0-16.0); LYMPHOCYTES # (AUTO) 0.8 (1.0-3.2); LYMPHOCYTES % 12.9 % (18.0-39.1); MEAN CORPUSCULAR HEMOGLOBIN 29.9 pg (28-32); MEAN CORPUSCULAR HGB CONC 30.4 g/dL (31-35); MEAN CORPUSCULAR VOLUME 98.3 fL (81-99); MONOCYTES # (AUTO) 0.6 (0.2-0.8); NEUTROPHILS # (AUTO) 4.2 (2.1-6.9); NEUTROPHILS % 67.3 % (38.7-80.0); PLATELET COUNT 220 x10e3/uL (140-360); RED BLOOD COUNT 2.88 x10e6/uL (3.6-5.1); RED CELL DISTRIBUTION WIDTH 15.8 % (11.7-14.4)
[2018-07-02] MEDS: INSULIN REGULAR, HUMAN 100 UNIT/1 ML 3ML VIAL SQ SCH ×3 (06:00→17:59)
[2018-07-02] MEDS ORDERED: PANTOPRAZOLE 40 MG 10ML VIAL IV SCH (09:00)
--- NOTE | 2018-07-02 09:33 | Diagnostic Imaging Report ---
PROCEDURE: CHEST SINGLE (PORTABLE) COMPARISON: CT of the chest and plain film of the chest dated 06/29/2018 INDICATIONS: PULMONARY EFFUSION FINDINGS: LUNGS: Left lower lobe opacity is unchanged. PLEURA: Moderate left pleural effusion.. HEART & MEDIASTINUM: The heart is within normal size-limits. The right IJ central line and nasogastric tube are unchanged. BONES & SOFT TISSUES: No acute findings. Multiple clips in the right axilla. CONCLUSION: No significant interval change. Pedro Alcantara D.O. Dictated by: Pedro Alcantara D.O. on 07/02/2018 at 9:42 Electronically approved by: Pedro Alcantara D.O. on 07/02/2018 at 9:42
[2018-07-02] MEDS: POTASSIUM CHLORIDE 20MEQ/15ML UDC NG SCH (09:36)
[2018-07-02] MEDS: AMIODARONE HCL 200 MG TAB PO SCH (09:36)
[2018-07-02] MEDS: PANTOPRAZOLE 40 MG 10ML VIAL IV SCH (09:36)
[2018-07-02] MEDS: BALSAM PERU/CASTOR OIL 60 GM OINT...G. TP SCH ×3 (09:37→17:58)
[2018-07-02] MEDS: OYST-CAL-D 500MG TABLET PO SCH ×2 (09:37→17:58)
[2018-07-02] MEDS: FENOFIBRATE 145 MG TAB PO SCH (09:37)
[2018-07-02 16:39] LABS: ANION GAP 10.9 mmol/L (8-16); CALCIUM 9.4 mg/dL (8.4-10.2); CREATININE, SERUM 1.99 mg/dL (0.57-1.11); POTASSIUM 4.9 mmol/L (3.5-5.1)
--- NOTE | 2018-07-02 16:55 | Progress Note ---
DATE: July 02, 2018 RENAL PROGRESS NOTE SUBJECTIVE: Followed for acute kidney injury on chronic kidney disease stage 3 to stage 4. Stable kidney function at CKD stage 4. Creatinine 1.9. No nausea, no vomiting. No shortness of breath. Patient's tube feedings are being weaned, and patient is hopefully starting to eat a little better. OBJECTIVE VITAL SIGNS: Have been noted and are stable. LUNGS: Clear to auscultation bilaterally. CARDIOVASCULAR: S1 and S2. No rub. ABDOMEN: Soft, nontender. EXTREMITIES: No edema. LABS: Have been reviewed. Potassium 4.6, BUN 40, creatinine 1.9, bicarb is up to 35. IMPRESSION AND PLAN 1. Chronic kidney disease stage 4, stable. Will continue to monitor. 2. Hypertension, stable. 3. Metabolic alkalosis. Will decrease furosemide to once a day and will discontinue potassium chloride tablets. Thank you once again. Job#: [id number] EV
[2018-07-02] MEDS: IRON SUCROSE 100 MG in SODIUM CHLORIDE 0.9% 100 ML 100 ML IV SCH (21:59)
[2018-07-03] VITALS (11 sets, daily range): BP systolic 126–167; BP diastolic 43–60
[2018-07-03 05:03] LABS: BASOPHILS # (AUTO) 0.1 (0.0-0.1); BASOPHILS % 0.8 % (0.0-1.0); EOSINOPHILS # (AUTO) 0.6 (0.0-0.4); EOSINOPHILS % 9.4 % (0.0-6.0); HEMATOCRIT 27.3 % (34.2-44.1); HEMOGLOBIN 8.4 g/dL (12.0-16.0); LYMPHOCYTES # (AUTO) 0.7 (1.0-3.2); LYMPHOCYTES % 11.1 % (18.0-39.1); MEAN CORPUSCULAR HEMOGLOBIN 30.1 pg (28-32); MEAN CORPUSCULAR HGB CONC 30.8 g/dL (31-35); MEAN CORPUSCULAR VOLUME 97.8 fL (81-99); MONOCYTES # (AUTO) 0.7 (0.2-0.8); MONOCYTES % 11.2 % (4.4-11.3); NEUTROPHILS % 67.2 % (38.7-80.0); PLATELET COUNT 218 x10e3/uL (140-360); RED BLOOD COUNT 2.79 x10e6/uL (3.6-5.1); RED CELL DISTRIBUTION WIDTH 15.9 % (11.7-14.4)
[2018-07-03 05:27] LABS: ANION GAP 11.6 mmol/L (8-16); CALCIUM 9.4 mg/dL (8.4-10.2); CREATININE, SERUM 2.03 mg/dL (0.57-1.11); MAGNESIUM 2.2 MG/DL (1.3-2.1); POTASSIUM 4.6 mmol/L (3.5-5.1)
[2018-07-03] MEDS: INSULIN REGULAR, HUMAN 100 UNIT/1 ML 3ML VIAL SQ SCH ×5 (05:37→23:50)
[2018-07-03] MEDS: VANCOMYCIN 250MG/5ML ORAL SOLN PO SCH ×5 (05:37→23:50)
[2018-07-03] MEDS: LEVOTHYROXINE SODIUM 100 MCG TAB PO SCH (05:37)
[2018-07-03] MEDS ORDERED: FUROSEMIDE 40 MG TAB PO SCH (09:00)
[2018-07-03] MEDS: OYST-CAL-D 500MG TABLET PO SCH ×2 (09:20→18:54)
[2018-07-03] MEDS: FENOFIBRATE 145 MG TAB PO SCH (09:20)
[2018-07-03] MEDS: AMIODARONE HCL 200 MG TAB PO SCH (09:20)
[2018-07-03] MEDS: PANTOPRAZOLE 40 MG 10ML VIAL IV SCH (09:20)
[2018-07-03] MEDS: BALSAM PERU/CASTOR OIL 60 GM OINT...G. TP SCH ×3 (09:21→17:00)
--- NOTE | 2018-07-03 09:49 | Progress Note ---
DATE: July 03, 2018 RENAL PROGRESS NOTE SUBJECTIVE: Followed for chronic kidney disease, stage 4. Kidney function appears stable. Creatinine is 2, which is about the patient's baseline. I have decreased the patient's furosemide to once a day. No nausea. No vomiting. No shortness of breath today. OBJECTIVE VITAL SIGNS: As follows: Blood pressure is 143/48, 77 pulse and afebrile. LUNGS: Mostly clear to auscultation bilaterally. CARDIOVASCULAR: S1 and S2. No rub. ABDOMEN: Soft. Positive bowel sounds. EXTREMITIES: No edema. LABS: Potassium is 4.6, BUN 42, creatinine is 2.03, chloride is 99, carb is 36. Calcium is 9.4. Magnesium is 2.2. IMPRESSION AND PLAN 1. Chronic kidney disease, stage 4: Stable kidney function at baseline. Acute kidney injury has resolved now. 2. Hypertension: Blood pressure is stable. 3. Metabolic alkalosis: Already decreased Lasix dose yesterday. Will continue monitoring on once a day Lasix and re-evaluate. 4. History of congestive heart failure: Continue once a day Lasix. I have taken the patient off potassium. Job#: [id number] KORI
[2018-07-03 17:01] LABS: ANION GAP 10.2 mmol/L (8-16); CALCIUM 9.5 mg/dL (8.4-10.2); CREATININE, SERUM 2.11 mg/dL (0.57-1.11); MAGNESIUM 2.1 MG/DL (1.3-2.1); POTASSIUM 4.2 mmol/L (3.5-5.1)
[2018-07-04] VITALS (10 sets, daily range): BP systolic 130–169; BP diastolic 48–56
[2018-07-04 03:22] LABS: BASOPHILS # (AUTO) 0.1 (0.0-0.1); BASOPHILS % 0.8 % (0.0-1.0); EOSINOPHILS # (AUTO) 0.6 (0.0-0.4); HEMOGLOBIN 8.6 g/dL (12.0-16.0); LYMPHOCYTES # (AUTO) 0.7 (1.0-3.2); LYMPHOCYTES % 10.9 % (18.0-39.1); MEAN CORPUSCULAR HEMOGLOBIN 30.2 pg (28-32); MEAN CORPUSCULAR HGB CONC 30.7 g/dL (31-35); MEAN CORPUSCULAR VOLUME 98.2 fL (81-99); MONOCYTES # (AUTO) 0.6 (0.2-0.8); NEUTROPHILS # (AUTO) 4.3 (2.1-6.9); NEUTROPHILS % 67.8 % (38.7-80.0); PLATELET COUNT 237 x10e3/uL (140-360); RED BLOOD COUNT 2.85 x10e6/uL (3.6-5.1); RED CELL DISTRIBUTION WIDTH 15.8 % (11.7-14.4)
[2018-07-04 03:39] LABS: ANION GAP 12.3 mmol/L (8-16); CALCIUM 9.5 mg/dL (8.4-10.2); CREATININE, SERUM 2.19 mg/dL (0.57-1.11); MAGNESIUM 2.3 MG/DL (1.3-2.1); POTASSIUM 4.3 mmol/L (3.5-5.1)
[2018-07-04] MEDS: INSULIN REGULAR, HUMAN 100 UNIT/1 ML 3ML VIAL SQ SCH ×3 (06:00→18:00)
[2018-07-04 06:01] LABS: INR 1.23; PROTHROMBIN TIME 16.6 seconds (11.9-14.5)
[2018-07-04] MEDS: VANCOMYCIN 250MG/5ML ORAL SOLN PO SCH ×3 (06:08→18:00)
[2018-07-04] MEDS: LEVOTHYROXINE SODIUM 100 MCG TAB PO SCH (06:08)
[2018-07-04] MEDS: ALBUTEROL/IPRATROPIUM 3 ML NEB NEB PRN ×2 (08:39→18:07)
--- NOTE | 2018-07-04 08:54 | Progress Note ---
DATE: July 04, 2018 RENAL PROGRESS NOTE SUBJECTIVE: Followed for chronic kidney disease, stage 4. Stable kidney function. Creatinine is elevated slightly. Patient may be slightly on the volume contracted side as is evident by metabolic alkalosis as well. I decreased her furosemide dose to once a day. May have to decrease it to 20 mg once a day. No nausea. No vomiting. No shortness of breath. Patient is to have a percutaneous endoscopic gastrostomy or PEG tube placed. She is in no acute respiratory distress. No chest pain. No nausea. No vomiting. OBJECTIVE VITAL SIGNS: Have been noted and are stable. Blood pressure 147/55, 92 pulse and afebrile. LUNGS: Minimal rales at the bases bilaterally. CARDIOVASCULAR: S1 and S2. No rub. ABDOMEN: Soft and nontender. EXTREMITIES: No edema. LABS: Potassium 4.3, BUN is 44 and creatinine is 2.2. IMPRESSION AND PLAN 1. Chronic kidney disease, stage 4, more or less stable kidney function: Will continue to monitor closely and make further recommendations. 2. Hypertension: Blood pressure is stable. 3. History of congestive heart failure: Will continue Lasix. However, decrease it to 20 mg once a day since the patient is not on a complete diet as of yet. Job#: [id number] KORI
[2018-07-04] MEDS: OYST-CAL-D 500MG TABLET PO SCH ×2 (08:55→17:00)
[2018-07-04] MEDS: FUROSEMIDE 20 MG TAB PO SCH (09:00)
[2018-07-04] MEDS: AMIODARONE HCL 200 MG TAB PO SCH (09:00)
[2018-07-04] MEDS ORDERED: FUROSEMIDE 40 MG TAB PO SCH (09:00)
[2018-07-04] MEDS: FENOFIBRATE 145 MG TAB PO SCH (09:00)
[2018-07-04] MEDS: PANTOPRAZOLE 40 MG 10ML VIAL IV SCH (09:05)
[2018-07-04] MEDS: BALSAM PERU/CASTOR OIL 60 GM OINT...G. TP SCH ×3 (09:05→18:07)
[2018-07-04] MEDS: ONDANSETRON HCL INJ 2 MG/ML VIAL IV PRN (16:15)
[2018-07-04] MEDS ORDERED: MORPHINE SULFATE 2 MG/ML SYR IV ONE (18:30)
--- NOTE | 2018-07-04 18:37 | Operative Report ---
DATE OF PROCEDURE: July 04, 2018 REFERRING PHYSICIAN: Dr. Jovan Bansal. PROCEDURE PERFORMED: Esophagogastroduodenoscopy and PEG tube placement. INDICATIONS FOR PROCEDURE: Oropharyngeal dysphagia. MEDICATION: Patient was done under MAC. Please see anesthesiologist's note. PROCEDURE: With the patient in the supine position, the flexible fiberoptic Olympus gastroscope was introduced into the esophagus under direct visualization without any difficulty. There was some patchy erythema noted in distal esophagus. The scope was then advanced with ease into the stomach and mucosa overlying the antrum and the body revealed some patchy erythema. Pylorus was of normal contour and shape. Was intubated with ease and the scope was advanced all the way to the 2nd portion of the duodenum. The scope was then withdrawn slowly. Mucosa overlying the proximal 2nd portion as well as the duodenal bulb appeared to be within normal limits. The duodenal exam was suboptimal as patient was somewhat desatting and the exam was done fairly quickly. The scope was then retroflexed into the stomach and mucosa overlying the fundus and the cardia grossly appeared to be within normal limits. The scope was then straightened out and PEG tube insertion was carried out in the usual fashion after delineating a a safe entry point through external digital palpation and transabdominal illumination. The scope was subsequently withdrawn after documenting a good positioning of the intragastric bumper. Patient tolerated the procedure well. IMPRESSION: 1. Distal esophagitis. 2. Gastritis. 3. PEG tube insertion was carried out in the usual fashion. PLAN: The patient tolerated the procedure well. G tube to drain to gravity in a Lomeli bag x 24 hours, then can use. Abdominal binder to remain x one week. Job#: [id number] cc:JOVAN BANSAL MD
[2018-07-04] MEDS ORDERED: PROPOFOL IV EMULSION 10 MG/ML 20 ML VIAL ONE (19:28)
[2018-07-04] MEDS ORDERED: LIDOCAINE HCL 2% LOCAL INJ 5 ML SDV VIAL INJ ONE (19:28)
[2018-07-05] VITALS (9 sets, daily range): BP systolic 103–150; BP diastolic 44–82
[2018-07-05] MEDS: ONDANSETRON HCL INJ 2 MG/ML VIAL IV PRN ×4 (00:10→18:10)
[2018-07-05] MEDS: MORPHINE SULFATE 2 MG/ML SYR IV PRN ×5 (00:10→18:10)
[2018-07-05 04:23] LABS: BASOPHILS # (AUTO) 0.1 (0.0-0.1); EOSINOPHILS # (AUTO) 0.5 (0.0-0.4); EOSINOPHILS % 6.2 % (0.0-6.0); HEMATOCRIT 28.9 % (34.2-44.1); HEMOGLOBIN 8.5 g/dL (12.0-16.0); LYMPHOCYTES # (AUTO) 0.7 (1.0-3.2); LYMPHOCYTES % 8.5 % (18.0-39.1); MEAN CORPUSCULAR HEMOGLOBIN 29.5 pg (28-32); MEAN CORPUSCULAR HGB CONC 29.4 g/dL (31-35); MEAN CORPUSCULAR VOLUME 100.3 fL (81-99); MONOCYTES # (AUTO) 0.6 (0.2-0.8); MONOCYTES % 6.8 % (4.4-11.3); NEUTROPHILS # (AUTO) 6.5 (2.1-6.9); NEUTROPHILS % 77.1 % (38.7-80.0); PLATELET COUNT 287 x10e3/uL (140-360); RED BLOOD COUNT 2.88 x10e6/uL (3.6-5.1); RED CELL DISTRIBUTION WIDTH 16.1 % (11.7-14.4)
[2018-07-05 04:46] LABS: ANION GAP 14.4 mmol/L (8-16); CALCIUM 9.5 mg/dL (8.4-10.2); CREATININE, SERUM 2.2 mg/dL (0.57-1.11); MAGNESIUM 2.3 MG/DL (1.3-2.1); PHOSPHORUS 4.3 MG/DL (2.3-4.7); POTASSIUM 4.4 mmol/L (3.5-5.1)
[2018-07-05] MEDS: LEVOTHYROXINE SODIUM 100 MCG TAB PO SCH (05:10)
[2018-07-05] MEDS: VANCOMYCIN 250MG/5ML ORAL SOLN PO SCH ×4 (05:10→17:08)
[2018-07-05] MEDS: INSULIN REGULAR, HUMAN 100 UNIT/1 ML 3ML VIAL SQ SCH ×4 (05:23→17:09)
[2018-07-05] MEDS ORDERED: DEXTROSE 5%/0.9% SOD CHL 1,000 ML IV ONE (07:15)
[2018-07-05] MEDS: FENOFIBRATE 145 MG TAB PO SCH (09:00)
[2018-07-05] MEDS: OYST-CAL-D 500MG TABLET PO SCH ×2 (09:00→17:00)
[2018-07-05] MEDS: FUROSEMIDE 20 MG TAB PO SCH (09:00)
[2018-07-05] MEDS: AMIODARONE HCL 200 MG TAB PO SCH (09:00)
[2018-07-05] MEDS: BALSAM PERU/CASTOR OIL 60 GM OINT...G. TP SCH ×3 (09:15→17:08)
[2018-07-05] MEDS: PANTOPRAZOLE 40 MG 10ML VIAL IV SCH (09:15)
[2018-07-05] MEDS ORDERED: DEXTROSE 5% 500ML 500 ML IV ONE (10:15)
--- NOTE | 2018-07-05 10:39 | Progress Note ---
DATE: July 05, 2018 RENAL PROGRESS NOTE SUBJECTIVE: Followed for chronic kidney disease, stage 4. Stable kidney function. No nausea, no vomiting, no shortness of breath. Patient is awaiting PEG tube placement. OBJECTIVE: VITAL SIGNS: Blood pressure is 123/40s, 94 pulse, is afebrile. LUNGS: Mostly clear to auscultation bilaterally. CARDIOVASCULAR: S1 and S2. No rub. ABDOMEN: Soft, nontender. EXTREMITIES: No edema. LABS: Have been reviewed. Sodium 146, potassium 4.4, BUN 46, creatinine 2.2, calcium 9.5, phosphorus 4.2, magnesium 2.3. IMPRESSION AND PLAN: 1. Chronic kidney disease, stage 4. Continue to monitor kidney function. 2. Hypertension. Blood pressure is stable and controlled. 3. Hypernatremia, suspect free water deficit developing. I will place the patient on D5 water at 50 mL per hour for 10 hours. I will discontinue the D5 NS that the patient is on. Thank you once again. Job#: [id number]
--- NOTE | 2018-07-05 16:33 | Diagnostic Imaging Report ---
Examination: Single AP view of the chest. COMPARISON: Multiple prior studies. INDICATION: Shortness of breath DISCUSSION: Lines/tubes: Right IJ to the Lungs: Chronic atelectasis/consolidation within the lingula and left lower lobe. The right lung clear. Pleura: Probable left effusion. Heart and mediastinum: The heart and the mediastinum are unremarkable. Bones and soft tissues: No acute bony abnormalities. IMPRESSION: 1. Chronic atelectasis/consolidation of the lingula and left lower lobe. 2. Probable left effusion. Signed by: Dr. Jack Juarez M.D. on 07/05/2018 4:30 PM
--- NOTE | 2018-07-05 16:34 | Diagnostic Imaging Report ---
Exam: Abdominal film Clinical History: Abdominal pain Comparison: None. DISCUSSION: Nonobstructive bowel gas pattern. Gastrostomy tube. Leftward lumbar curvature with scoliosis. IMPRESSION: Nonobstructive bowel gas pattern. Signed by: Dr. Jack Juarez M.D. on 07/05/2018 4:31 PM
[2018-07-05 18:46] LABS: BASOPHILS # (AUTO) 0.1 (0.0-0.1); BASOPHILS % 0.8 % (0.0-1.0); EOSINOPHILS # (AUTO) 0.4 (0.0-0.4); HEMATOCRIT 27.9 % (34.2-44.1); HEMOGLOBIN 8.3 g/dL (12.0-16.0); LYMPHOCYTES # (AUTO) 0.6 (1.0-3.2); LYMPHOCYTES % 5.9 % (18.0-39.1); MEAN CORPUSCULAR HEMOGLOBIN 30.1 pg (28-32); MEAN CORPUSCULAR HGB CONC 29.7 g/dL (31-35); MEAN CORPUSCULAR VOLUME 101.1 fL (81-99); MONOCYTES # (AUTO) 0.7 (0.2-0.8); MONOCYTES % 6.3 % (4.4-11.3); NEUTROPHILS # (AUTO) 8.5 (2.1-6.9); NEUTROPHILS % 82.5 % (38.7-80.0); PLATELET COUNT 285 x10e3/uL (140-360); RED BLOOD COUNT 2.76 x10e6/uL (3.6-5.1)
[2018-07-05 19:07] LABS: ALBUMIN 1.9 g/dL (3.5-5.0); ALBUMIN/GLOBULIN RATIO 0.4 (0.8-2.0); ANION GAP 10.3 mmol/L (8-16); CALCIUM 9.4 mg/dL (8.4-10.2); CREATININE, SERUM 2.5 mg/dL (0.57-1.11); POTASSIUM 4.3 mmol/L (3.5-5.1)
[2018-07-05 20:23] LABS: ABG HCO3 39 mmol/L (23-28); ABG PCO2 48 mmHg (41-51); ABG PH 7.51 (7.31-7.41); ABG PO2 87 mmHg (80-105)
[2018-07-06] VITALS (24 sets, daily range): BP systolic 81–125; BP diastolic 26–95
[2018-07-06] MEDS: VANCOMYCIN 250MG/5ML ORAL SOLN PO SCH ×5 (01:00→23:28)
[2018-07-06 03:51] LABS: BASOPHILS # (AUTO) 0.1 (0.0-0.1); BASOPHILS % 0.7 % (0.0-1.0); EOSINOPHILS # (AUTO) 0.5 (0.0-0.4); EOSINOPHILS % 3.9 % (0.0-6.0); HEMOGLOBIN 8.3 g/dL (12.0-16.0); LYMPHOCYTES # (AUTO) 0.6 (1.0-3.2); LYMPHOCYTES % 5.3 % (18.0-39.1); MEAN CORPUSCULAR HEMOGLOBIN 30.3 pg (28-32); MEAN CORPUSCULAR HGB CONC 29.6 g/dL (31-35); MEAN CORPUSCULAR VOLUME 102.2 fL (81-99); MONOCYTES # (AUTO) 0.6 (0.2-0.8); MONOCYTES % 5.1 % (4.4-11.3); NEUTROPHILS # (AUTO) 10.3 (2.1-6.9); NEUTROPHILS % 84.5 % (38.7-80.0); PLATELET COUNT 306 x10e3/uL (140-360); RED BLOOD COUNT 2.74 x10e6/uL (3.6-5.1); RED CELL DISTRIBUTION WIDTH 16.1 % (11.7-14.4)
[2018-07-06 04:07] LABS: ANION GAP 13.5 mmol/L (8-16); CALCIUM 9.3 mg/dL (8.4-10.2); CREATININE, SERUM 3.11 mg/dL (0.57-1.11); MAGNESIUM 2.2 MG/DL (1.3-2.1); POTASSIUM 4.5 mmol/L (3.5-5.1)
[2018-07-06] MEDS: LEVOTHYROXINE SODIUM 100 MCG TAB PO SCH (05:30)
[2018-07-06] MEDS: INSULIN REGULAR, HUMAN 100 UNIT/1 ML 3ML VIAL SQ SCH ×5 (06:50→23:22)
[2018-07-06] MEDS: AMIODARONE HCL 200 MG TAB PO SCH (09:52)
[2018-07-06] MEDS: PANTOPRAZOLE 40 MG 10ML VIAL IV SCH (09:52)
[2018-07-06] MEDS: ACETAMINOPHEN 325 MG TAB PO PRN ×2 (09:52→17:59)
[2018-07-06] MEDS: FENOFIBRATE 145 MG TAB PO SCH (09:52)
[2018-07-06] MEDS: BALSAM PERU/CASTOR OIL 60 GM OINT...G. TP SCH ×3 (09:52→17:59)
[2018-07-06] MEDS: OYST-CAL-D 500MG TABLET PO SCH ×2 (09:52→17:59)
[2018-07-06] MEDS: FUROSEMIDE 20 MG TAB PO SCH (09:52)
[2018-07-06] MEDS ORDERED: FUROSEMIDE INJ 10 MG/ML 4 ML VIAL IV NR (10:15)
[2018-07-06] MEDS ORDERED: CHLOROTHIAZIDE SODIUM 500 MG VIAL IV NR (10:15)
--- NOTE | 2018-07-06 11:23 | Progress Note ---
DATE: July 06, 2018 RENAL PROGRESS NOTE SUBJECTIVE: Follows for acute kidney injury on chronic kidney disease, stage 4. Patient's kidney function appears to have gotten worse again. Apparently, patient developed a fever yesterday. Patient also had some episodes of hypotension. Creatinine has gone up from 2.[address] to 3.1 now. Patient is having more respiratory distress, also had likely oversedation from narcotics. The patient has tube feeds now running at 50 mL per hour. Free water flush is also being given. OBJECTIVE VITAL SIGNS: Have been noted and are stable. LUNGS: Have rales at the bases bilaterally. CARDIOVASCULAR: S1 and S2. No rub. ABDOMEN: Soft, nontender. EXTREMITIES: No edema. LABS: Have been reviewed. Creatinine today is 3.1, potassium is 4.5, bicarb is 33, sodium is 148. IMPRESSION AND PLAN 1. Acute kidney injury on chronic kidney disease, stage 4. Patient's kidney function acutely has gotten worse slightly secondary to hypotension and infection. Patient has a chest tube site that does look infected. Infectious disease is also seeing the patient. For now, we would not give aggressive IV fluids since the patient gets fluid overloaded very quickly and she is also already in respiratory distress. I will increase free water flushes since the patient's sodium is high, we will increase free water flushes to 250 mL q.6 hours. I will give her 1 dose of Lasix 40 mg IV x1 and also 1 dose of Diuril 250 mg x1. I will also replace the Lomeli catheter. Would recommend to avoid all potential nephrotoxic agents including antibiotics. Recheck labs on a daily basis and make further recommendations. 2. Hypotension/hypertension. Hold all blood pressure lowering medications. 3. Hypernatremia. We will increase free water flushes to 250 mL q.6 hours and make further recommendations. 4. Decreased urine output. We will place Lomeli catheter, give dose of Lasix and Diuril, and make further recommendations. Thank you once again. Job#: [id number] JAYANT
[2018-07-06] MEDS ORDERED: MEROPENEM 500MG 500 MG in SODIUM CHLORIDE 0.9% 50ML 50 ML IV SCH ×2 (13:00→21:00)
[2018-07-06] MEDS ORDERED: MEROPENEM 500 MG VIAL ONE (13:11)
--- NOTE | 2018-07-06 13:15 | Diagnostic Imaging Report ---
EXAM: XR CHEST 1 VIEW DATE: 07/06/2018 11:56 AM INDICATION: Follow-up chest tube COMPARISON: 07/05/2018, no report available FINDINGS: Lines and Tubes: Catheter overlies the right neck with tip to the left of midline. Catheter within SVC on 06/29/2018 CT. Heart and Mediastinum: Moderately enlarged. Vascular calcifications. Lungs and Pleura: Moderate opacity left lung base, obscured left hemidiaphragm. Bones and Soft Tissues: Surgical clips right axilla. IMPRESSION: 1. Moderate opacity left lung base likely combination of pleural fluid (possibly loculated) with atelectasis and/or pneumonia. Signed by: Dr. Alfonzo Taylor MD on 07/06/2018 1:11 PM
[2018-07-06] MEDS ORDERED: VANCOMYCIN 500MG/NS 0.9% 100ML 100 ML IV ONE (13:45)
[2018-07-06] MEDS: MEROPENEM 500 MG VIAL IV SCH (13:48)
[2018-07-06] MEDS ORDERED: FUROSEMIDE INJ 10 MG/ML 4 ML VIAL IV ONE (15:00)
[2018-07-06] MEDS: LEVALBUTEROL HCL SOLN NEBU 0.63 MG/3 ML NEB INH PRN ×2 (15:45→21:36)
[2018-07-06] MEDS: ACETYLCYSTEINE 20% INHAL SOLN 30 ML VIAL INH SCH ×2 (15:45→19:00)
[2018-07-06] MEDS ORDERED: MIDODRINE HCL 5 MG TABLET PO SCH (16:00)
[2018-07-06] MEDS ORDERED: MIDODRINE 2.5 MG TAB PO SCH (16:00)
[2018-07-06 16:37] LABS: ANION GAP 12.3 mmol/L (8-16); CREATININE, SERUM 3.74 mg/dL (0.57-1.11); POTASSIUM 4.3 mmol/L (3.5-5.1)
[2018-07-06] MEDS ORDERED: LEVOFLOXACIN 500MG/D5W 100ML 100 ML IV ONE (18:00)
[2018-07-06] MEDS: MORPHINE SULFATE 2 MG/ML SYR IV PRN (22:30)
[2018-07-07] VITALS (9 sets, daily range): BP systolic 93–156; BP diastolic 37–62
[2018-07-07] MEDS: MEROPENEM 500 MG VIAL IV SCH (01:15)
[2018-07-07] MEDS: MORPHINE SULFATE 2 MG/ML SYR IV PRN ×3 (04:58→18:12)
[2018-07-07] MEDS: INSULIN REGULAR, HUMAN 100 UNIT/1 ML 3ML VIAL SQ SCH (05:41)
[2018-07-07] MEDS: LEVOTHYROXINE SODIUM 100 MCG TAB PO SCH (05:41)
[2018-07-07] MEDS: VANCOMYCIN 250MG/5ML ORAL SOLN PO SCH (05:41)
[2018-07-07] MEDS: ACETYLCYSTEINE 20% INHAL SOLN 30 ML VIAL INH SCH ×2 (08:10→19:00)
[2018-07-07] MEDS: LORAZEPAM INJ 2 MG/ML VIAL IV PRN ×2 (13:04→20:28)
[2018-07-08 04:26] VITALS: BP 106/38
[2018-07-08] MEDS: MORPHINE SULFATE 2 MG/ML SYR IV PRN ×2 (04:43→12:04)
[2018-07-08] MEDS: LORAZEPAM INJ 2 MG/ML VIAL IV PRN (06:35)
[2018-07-08] MEDS: ACETYLCYSTEINE 20% INHAL SOLN 30 ML VIAL INH SCH (07:00)
[2018-07-08] MEDS: LEVALBUTEROL HCL SOLN NEBU 0.63 MG/3 ML NEB INH PRN (08:43)
--- NOTE | 2018-07-08 09:42 | Progress Note ---
DATE: July 08, 2018 RENAL PROGRESS NOTE The patient's condition over the weekend worsened since Sunday. Started to get more septic shock and more respiratory distress. Creatinine also started to rise. The family decided to make her DNR and also hospice. The patient has officially been declared hospice from today. No labs were done over the weekend. Since Sunday, everything has been stopped, except comfort measures. From a renal standpoint, I have no further recommendations at this time. Will sign off. Please call again with any questions or if help is required. Job#: [id number]
--- NOTE | 2018-07-08 15:45 | Discharge Summary ---
ADMISSION DIAGNOSES 1. Pleural effusion. 2. History of breast cancer with frequent need for thoracentesis. 3. Pneumonia. 4. Hypertension. 5. Type 2 diabetes. 6. Hyperlipidemia. 7. Hypothyroidism. 8. Respiratory failure with hypoxia. 9. Anemia. 10. Chronic kidney disease 4. DISCHARGE DIAGNOSES 1. Pleural effusion. 2. History of breast cancer with frequent need for thoracentesis. 3. Pneumonia. 4. Hypertension. 5. Type 2 diabetes. 6. Hyperlipidemia. 7. Hypothyroidism. 8. Respiratory failure with hypoxia. 9. Anemia. 10. Chronic kidney disease 4. 11. Status post thoracentesis. 12. Pseudomonas of the urine. 13. Hypernatremia. 14. Hypokalemia. 15. Hypocalcemia. 16. Hypermagnesemia. 17. Hyperphosphatemia. 18. Hypophosphatemia. HISTORY: Patient has a history of hypertension, CKD 4, hyperlipidemia, breast cancer, type 2 diabetes, CHF, hypothyroidism, skin cancer. SURGICAL HISTORY: Patient has a surgical history of bilateral hip replacement, lumpectomy and skin cancer. FAMILY HISTORY: Patient's mother had cancer. SOCIAL HISTORY: Patient denies tobacco, alcohol and illicit drug use. HOSPITAL COURSE: An 82-year-old female with history of breast cancer over the last 12 years, was returning home from a CT of the chest ordered by Dr. Hughes when she began having left-sided chest pain. Pain was described as sharp. She came directly to the ER. She denied nausea, vomiting, diarrhea and weakness. HPI and history pulled from previous records as patient was seen in ICU status post intubation due to respiratory failure and hypoxia. On June 12, patient had a left-sided thoracentesis with 1200 mL pulled. Ultrasound of the chest showed moderate to large left effusion. Chest x-ray on admission showed moderate left effusion with superimposed atelectasis and/or pneumonia, no distinct pneumothorax. Patient had an echo with an EF between 50% and 55%. Bilateral lower extremity venous Doppler was negative. Patient had a renal ultrasound that was normal with no hydronephrosis. Abdominal x-ray showed NG OG overlying the gastric body. Urine culture on admission was positive for citrobacter. Patient started on antibiotics per ID. Thoracentesis fluid was negative. The culture was negative. Blood culture was negative on admission. On June 14 patient's sputum was positive for pseudomonas and staph. Bronchial washings were positive for staph. Patient had an MBS on June 25, which she failed. Per speech therapy rec, patient started on NMES therapy. Nephrology followed for the CKD, which improved and then worsened prior to discharge. Cardiology was consulted because it appeared she was in AFib on admission. He started her on amiodarone, and she was sinus rhythm with 1st-degree AV block. Hematology was consulted for anemia. Patient received 1 unit of PRBCs on June 21. Patient was found to be positive for C. diff and started on vancomycin p.o. Prior to discharge, the antibiotics were complete and the C. diff was negative. Pleural fluid on the had 302 WBCs. Pleural fluid on the had 18 WBCs. Stool for blood was negative. Repeat chest x-rays and CTS showed recurrent pleural effusion. After having long discussions with the patient and family, patient will discharge home with hospice. Patient had a PEG placed secondary to dysphagia, per speech therapy recommendation. Prior to discharge, patient pulled out the PEG tube. Family did not wish to replace it. Patient was placed on hospice inpatient and made DNR. She will discharge home with hospice on morphine, lorazepam and nebs for comfort care only. Patient and daughters understand discharge instructions and agree to plan. Vital signs stable, patient afebrile. Dictated by: Anne Beltran NP JOVAN MCMULLEN MD Job#: [id number] EV
--- NOTE | 2018-07-08 20:36 | Progress Note ---
DATE: July 08, 2018 FOLLOWUP NOTE Ms. Cohen is a very pleasant 82-year-old female with known long-standing history of breast cancer, recently evaluated by podiatry professor due to recurrent pleural effusion. She was admitted to inpatient floor due to hypoxic respiratory failure, earlier required intubation. She had thoracocentesis, however, her symptom continued to get worse. Finally, family had made comfort care and patient is going to be discharged with the hospice. Job#: [id number]
--- NOTE | 2018-08-01 13:15 | Consultation ---
DATE OF CONSULTATION: June 16, 2018 SURGICAL CONSULTATION ADMITTING PHYSICIAN: Dr. Bansal. REASON FOR CONSULTATION: Pleural effusion. HISTORY OF PRESENT ILLNESS: This 82-year-old female was admitted to the hospital after presenting to the emergency room complaining of left-sided chest pain associated with some difficulty breathing. The patient was admitted to the hospital and had a CAT scan of the chest that showed it to have a large pleural effusion and she had a paracentesis that was consistent with an exudate and for that reason consultation for us to see the patient for possible chest tube placement or possible thoracoscopy. PAST MEDICAL HISTORY: Remarkable for hypertension, hyperlipidemia, breast cancer, congestive heart failure, and hypothyroidism. PAST SURGICAL HISTORY: Includes the breast surgery as well as hip replacement. REVIEW OF SYSTEMS: Unable to obtain because the patient is intubated. MEDICATIONS: Please refer to the MAR. ALLERGIES: TO IODINE. PHYSICAL EXAMINATION GENERAL: At the time that we saw the patient revealed a female, intubated, lying in bed, sedated. HEENT: No acute inflammation. NECK: No nodes, masses, or bruits. LUNGS: Significantly decreased breath sounds on the left side particularly in the lower aspect of the thorax. ABDOMEN: Soft and nontender. There were no palpable masses. EXTREMITIES: Good pulses bilaterally. ASSESSMENT: An 82-year-old female with what appears to be a multiloculated effusion, currently under ventilator management. It is not clear whether this is at this point simply an infected effusion or whether this is a multiloculated empyema. PLAN: After a long discussion with the patient's family considering her overall condition, taking her for thoracoscopy and one lung ventilation during anesthesia, I think it is significantly risky and I think the best approach at this time would be placement of a chest tube and seeing if she improves with this and if this does not resolve the issue then she may need to thoracoscopy at a time when she perhaps is in a little bit more stable and better condition. The family understands this well and they agree with this plan; therefore, we will get all of the appropriate consents and plan for placement of a thoracostomy tube. Thank you very much for asking me to see this patient. Job#: [id number] JV
== END 2018-07-08 14:05 | disposition hospice, home (50) | DRG 207 ==
LOC: ER 11:05 → ERHOLD 12:15 → OBSVTOIN 15:39 → IMCU 21:14 → ICU 06-13 08:17 → IMCU 06-27 19:48
PROVIDERS: ADMIT Internal Medicine; ATTEND Internal Medicine
PROC: 5A1955Z Respiratory Ventilation, Greater than 96 Consecutive Hours (ICD-10-PCS; principal; 2018-06-12)
PROC: 0BH17EZ Insertion of Endotracheal Airway into Trachea, Via Natural or Artificial Opening (ICD-10-PCS; 2018-06-12)
PROC: 0W9B3ZX Drainage of Left Pleural Cavity, Percutaneous Approach, Diagnostic (ICD-10-PCS; 2018-06-12)
PROC: 0B9J7ZX Drainage of Left Lower Lung Lobe, Via Natural or Artificial Opening, Diagnostic (ICD-10-PCS; 2018-06-15)
PROC: 0B9H7ZX Drainage of Lung Lingula, Via Natural or Artificial Opening, Diagnostic (ICD-10-PCS; 2018-06-15)
PROC: 0W9B30Z Drainage of Left Pleural Cavity with Drainage Device, Percutaneous Approach (ICD-10-PCS; 2018-06-18)
PROC: 0DH63UZ Insertion of Feeding Device into Stomach, Percutaneous Approach (ICD-10-PCS; 2018-07-04)
DX: J90 Pleural effusion, not elsewhere classified (principal); J69.0 Pneumonitis due to inhalation of food and vomit; J96.01 Acute respiratory failure with hypoxia; N17.0 Acute kidney failure with tubular necrosis; N18.4 Chronic kidney disease, stage 4 (severe); E87.0 Hyperosmolality and hypernatremia; E87.3 Alkalosis; I47.1 Supraventricular tachycardia; A04.72 Enterocolitis due to Clostridium difficile, not specified as recurrent; I12.9 Hypertensive chronic kidney disease with stage 1 through stage 4 chronic kidney disease, or unspecified chronic kidney disease; E11.22 Type 2 diabetes mellitus with diabetic chronic kidney disease; D64.9 Anemia, unspecified; E03.9 Hypothyroidism, unspecified; E78.5 Hyperlipidemia, unspecified; Z83.3 Family history of diabetes mellitus; Z82.49 Family history of ischemic heart disease and other diseases of the circulatory system; R00.1 Bradycardia, unspecified; I50.9 Heart failure, unspecified; R13.12 Dysphagia, oropharyngeal phase; K20.9 Esophagitis, unspecified; K29.70 Gastritis, unspecified, without bleeding; L89.150 Pressure ulcer of sacral region, unstageable; L89.610 Pressure ulcer of right heel, unstageable; E87.6 Hypokalemia; Z85.3 Personal history of malignant neoplasm of breast; R19.7 Diarrhea, unspecified; B95.61 Methicillin susceptible Staphylococcus aureus infection as the cause of diseases classified elsewhere; B96.5 Pseudomonas (aeruginosa) (mallei) (pseudomallei) as the cause of diseases classified elsewhere; E83.39 Other disorders of phosphorus metabolism; B96.89 Other specified bacterial agents as the cause of diseases classified elsewhere
CPT/HCPCS: 31500; 31623; 31720; 32555; 36415; 36600; 43246; 71045; 71250; 74018; 74230; 74470; 76604; 76770; 80048; 80053; 80202; 82150; 82270; 82550; 82553; 82570; 82607; 82728; 82746; 82805; 82945; 82948; 83036; 83540; 83605; 83615; 83690; 83735; 83880; 84100; 84157; 84300; 84436; 84439; 84443; 84466; 84479; 84484; 85025; 85610; 85730; 86850; 86900; 86920; 87040; 87070; 87086; 87102; 87109; 87186; 87205; 87206; 87493; 88112; 88305; 89051; 93005; 93970; 94003; 94640; 94660; 96360; 96361; 96366; 96372; 96375; 96376; 97139; 99284; J0153; J0330; J0360; J0692; J1160; J1644; J1720; J1756; J1940; J1956; J2001; J2060; J2185; J2250; J2270; J2405; J2543; J3370; J3475; J3480; J7030; J7042; J7050; J7060; J7070; P9016; Q4081

== ENCOUNTER → 2018-06-12 | Outpatient (CLI) | payer MEDICARE ==
--- NOTE | 2018-06-12 11:22 | Diagnostic Imaging Report ---
EXAMINATION: CT scan of the chest without contrast. TECHNIQUE: Spiral CT images of the chest were performed from the lung apices to the level of the adrenal glands without IV contrast material. Coronal and sagittal reformatted images were obtained. Low-dose protocol was utilized. DLP: 546.30 mGy-cm COMPARISON: 02/08/[address] CLINICAL HISTORY: Shortness of breath DISCUSSION: LINES/TUBES: None. LUNGS AND AIRWAYS: Right lung compressive atelectasis. Right upper lobe calcified granuloma. Right basilar subsegmental atelectasis. Resolution of the previously described groundglass opacities in the right upper lobe. PLEURA: Large right pleural effusion has increased in size compared to the prior study. HEART AND MEDIASTINUM: The thyroid gland is normal. The heart and pericardium are within normal limits. Calcification within the aorta, coronary arteries, aortic valve, mitral valve and great vessels are again noted. LYMPH NODES: There is no mediastinal, hilar or axillary lymphadenopathy. Small mediastinal lymph nodes do not appear pathologic. ABDOMEN: Limited gpx-dwfmyvri-ssntzttt views of the upper abdomen show no abnormality within the visualized liver, spleen, pancreas or kidneys. Clips in the gallbladder fossa. The adrenal glands are normal. BONES AND SOFT TISSUES: No acute bony abnormalities. Old right rib fractures. Right axillary clips. IMPRESSION: 1. Large left pleural effusion has increased in size compared to the prior study. 2. Left lung compressive atelectasis. 3. Resolution of the previously identified left upper lobe groundglass opacities. 4. Interval development of right basilar atelectasis. Signed by: Dr. Pedro Alcantara DO on 06/12/2018 11:19 AM
== END ==
LOC: CT 09:50
PROVIDERS: ATTEND Internal Medicine
DX: J90 Pleural effusion, not elsewhere classified (principal)
CPT/HCPCS: 71250